=== PATIENT | male | born 1960 | race Caucasian/White ===

== ENCOUNTER 2021-06-27 15:13 | Inpatient (IN) | payer MEDICARE, MEDICAID ==
[~2021-06-27] VITALS: Ht 172.7 cm; Wt 67.5 kg
[2021-06-27] MEDS ORDERED: loperamide 2mg capsule PO PRN (15:25)
[2021-06-27] MEDS ORDERED: mag hydrox/Alum hydrox/simeth 30ml oral suspension PO PRN (15:25)
[2021-06-27] MEDS ORDERED: magnesium hydroxide 30ml (MOM) UD suspension PO PRN (15:25)
[2021-06-27] MEDS ORDERED: acetaminophen 325mg tablet PO PRN ×2 (15:25)
--- NOTE | 2021-06-27 16:45 | NUR ---
Admission note: Pt admitted today from [facility] on a 5150 for gravely disabled. Pt was found dirty, hungry, dehydrated and speaking gibberish. Pt continually speaking to himself gibberish and not able to provide his food, clothing and penitentiary. Pts packet does not state any history except "Pt is a and has been homeless for quite some time with hallucinations."
[2021-06-27 16:56] VITALS: BP 162/101
[2021-06-27] MEDS ORDERED: NO HOME MEDS (16:57)
[2021-06-27 20:16] VITALS: BP 138/85
--- NOTE | 2021-06-27 23:14 | NUR ---
Nursing Progress Note: Legal hold:5150 Client on /involuntary status for GD Report received from nurse with use of DARVIN Henriquez Why are they here: Pt was placed on a 5150 in [facility]. Pt appeared to be disheveled, was hungry, and dehydrated. He is unable to provide a viable plan for food, clothing, or custodial. Assessment What has happened this shift: pt remains in bed for duration of shift, only gets up to eat and use the bathroom. Pt is guarded in response to questions and only answers some questions with minimal answers. Pt states his birthday is [birth year]. Pt states he was in "all the [place]" of the " Pt is unable to state why he is here. Pt ate his meals in his room and requested coffee and reports no other needs. S/I, H/I: pt denies A/VH: pt didnt answer Sleep: see sleep hours ADL's: pt ambulates to bathroom independently Group attendance: remained in bed Were meds taken: only prns Any med S/E: no meds given Mental Status Exam Appearance: disheveled Eye contact: poor Behavior: guarded, attempts were made to encourage conversation but patient kept sheet pulled over his head while talking. Speech: soft spoken, normal rate and rhythm Mood: gaurded, fearful Affect: flat Thought process: disorganized Thought Content: wants coffee Cognition:a/o to person Insight: poor Judgment: poor Interventions PRN's used: None Therapeutic interventions: Established rapport, maintained a safe and supportive environment, ensured contract for safety, provided clear and simple instructions, provided direction and encouragement regarding performance of ADLs, and maintained Q15 min safety checks. Restraints/seclusion/emergency medication: N/A Justification of Continued Inpatient Treatment: Pt requires a safe and supportive environment, medication adjustment and monitoring, and interruption of current crisis.
[2021-06-28] MEDS: nicotine 21mg patch - 24 hr TD SCH (07:35)
[2021-06-28 08:00] VITALS: BP 140/84
[2021-06-28 10:45] LABS: CHOL/HDL RATIO 3.1 (0.00-4.99); CHOLESTEROL 230 MG/DL (0-200); HDL CHOLESTEROL 75 MG/DL (35-60); LDL CHOLESTEROL 136 MG/DL (50-100); TRIGLYCERIDES 78 MG/DL (20-135)
--- NOTE | 2021-06-28 15:11 | NUR ---
Nursing Progress Note: Legal hold: 5150 Client on involuntary status for GD Report received from nurse Eva REYNOLDS with use of SBAR Why are they here: Pt was placed on a 5150 in [facility]. Pt appeared to be disheveled, was hungry, and dehydrated. He is unable to provide a viable plan for food, clothing, or care home. Assessment What has happened this shift: Pt was up before breakfast walking around the unit talking to himself. Pt asked for coffee and a nicotine patch. Pt is hyperverbal and rambles. Pt states that his birthday is [birth year]. Pt states he actually has 2 birthdays on record per the [place]. 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 Pt states that he was in the and has a clean bill of health and mental health. Pt identified with name and medical record number. Pt denied depression, SI/HI/AH/VH. Pt has a new order for Lipitor 20 mg daily. S/I, H/I: Pt denies. A/VH: Pt denies though appears to be responding to internal stimuli. Sleep: Pt slept 9.5 hours last night per noc shift report. ADL's: Independent Group attendance: No Were meds taken: Pt only had a nicotine patch scheduled this morning. Any med S/E: N/A Mental Status Exam Appearance: Older balding, tanned man with dark hair and scratch hidalgo on his nose dressed in green unit scrubs and a gastelum hoodie. Eye contact: Fair Behavior: Cooperative, restless, paces the unit and talks to himself. Speech: Clear, soft, hyperverbal, rambles. Mood: Calm Affect: Mildly guarded. Thought process: Delusional Thought Content: He has 2 birthdays on record, he is in the witness protection program, they will collect him when he leaves here. Cognition: A/O X2, oriented to person and place. Insight: Poor Judgment: Poor Interventions PRN's used: None Therapeutic interventions: 1:1 assessment, establishment of rapport, maintained a safe and supportive environment, provided clear and simple instructions, therapeutic communication, active listening, encouragement to attend groups, provided distraction, direction, positive reinforcement, reality orientation, and maintained Q15 minute safety checks. Restraints/seclusion/emergency medication: N/A Justification of Continued Inpatient Treatment: Pt requires a safe and supportive environment, medication adjustment and monitoring, and interruption of current crisis.
[2021-06-28 19:31] VITALS: BP 145/87
[2021-06-28] MEDS ORDERED: OLANZapine 2.5MG tablet PO SCH (21:00)
--- NOTE | 2021-06-28 21:15 | NUR ---
Nursing Progress Note: Legal hold: 5150 Client on involuntary status for GD Report received from nurse Martinez REYNOLDS with use of SBAR Why are they here: Pt was placed on a 5150 in [facility]. Pt appeared to be disheveled, was hungry, and dehydrated. He is unable to provide a viable plan for food, clothing, or skilled nursing. Assessment What has happened this shift: Pt was in the hallway at change of shift, wants to know when he can leave. Explained he will be here while he is on a hold and suggested he eat well and get comfortable. Pt states he slept well last night, pt states he needs more food because he is feeling hungry after having dinner and snack. Pt states "shonda is the president right now". S/I, H/I: Pt denies. A/VH: Pt denies though appears to be responding to internal stimuli. Sleep: see sleep hours ADL's: Independent Group attendance: No Were meds taken: yes Any med S/E: N/A Mental Status Exam Appearance: Older balding, tanned man with dark hair and scratch hidalgo on his nose dressed in green unit scrubs and a gastelum hoodie. Eye contact: Fair Behavior: Cooperative, restless, paces the unit and talks to himself. Speech: Clear, soft, Mood: Calm Affect: Mildly guarded. Thought process: Delusional Thought Content: wants to know when he can leave and if he can have a "double portion" of food Cognition: A/O X2, oriented to person and place. Insight: Poor Judgment: Poor Interventions PRN's used: None Therapeutic interventions: 1:1 assessment, establishment of rapport, maintained a safe and supportive environment, provided clear and simple instructions, therapeutic communication, active listening, encouragement to attend groups, provided distraction, direction, positive reinforcement, reality orientation, and maintained Q15 minute safety checks. Restraints/seclusion/emergency medication: N/A Justification of Continued Inpatient Treatment: Pt requires a safe and supportive environment, medication adjustment and monitoring, and interruption of current crisis.
[2021-06-29 08:25] VITALS: BP 166/111
[2021-06-29] MEDS: hyDRALAzine 10mg tablet PO SCH ×2 (08:39→16:22)
[2021-06-29] MEDS: atorvastatin 20mg tablet PO SCH (08:39)
[2021-06-29] MEDS: nicotine 21mg patch - 24 hr TD SCH (08:42)
[2021-06-29 11:19] VITALS: BP 148/98
[2021-06-29 11:21] VITALS: BP 148/98
--- NOTE | 2021-06-29 13:31 | NUR ---
Attempted to meet with Jerardo to complete psychosocial assessment. Jerardo is a 61 y/o male who was placed on 5150 for grave disability by [facility] on 06/24/21. He was found by [facility] who were concerned he was not able to care for himself and was dirty, hungry, dehydrated, and speaking gibberish. He was arrested at a rest stop on 06/23/21 in [place] for Disorderly Conduct:Alcohol. He was also arrested on warrants for obstruction, wise theft, and receiving known stolen property. Jerardo is a short, disheveled, 61 y/o male. He was stuttering and rambling about wanting to discharge to the "[facility]". He mentioned being in the and witness protection. He would not converse with travel writer and left the room. AGUILAR Cloud Addendum: 06/29/21 at 1332 by Ju Weaver SS Amended: Links added.
[2021-06-29 15:53] VITALS: BP 149/99
--- NOTE | 2021-06-29 16:41 | NUR ---
Nursing Progress Note: Legal hold: 5150 Client on involuntary status for GD Report received from nurse Eva REYNOLDS with use of SBAR Why are they here: Pt was placed on a 5150 in [facility]. Pt appeared to be disheveled, was hungry, and dehydrated. He is unable to provide a viable plan for food, clothing, or correction. Assessment What has happened this shift: Pt was up before breakfast pacing in the hager. Pt's BP this morning was 166/111 with a pulse of 60. An order was obtained for Hydralazine 20 mg PO Q 8H. Pt's BP at 1600 was 149/99 with a pulse of 67 and he was given his routine Hydralazine. Pt continues to respond to internal stimuli mumbling to himself in his room. He would seem to have some fixed delusions. He continues to report that he was born in 1950. Pt is pleasant and cooperative with care and unit procedures. No unsafe behaviors noted. His Zyprexa was increased to 10 mg HS. S/I, H/I: Pt denies. A/VH: Pt denies though appears to be responding to internal stimuli. Sleep: Pt slept 9 hours last night per noc shift report. ADL's: Independent Group attendance: No Were meds taken: Yes Any med S/E: None noted or reported. Mental Status Exam Appearance: Tanned,weathered man with dark hair bald on top and scratch hidalgo on his nose dressed in green unit scrubs and a gastelum hoodie. Eye contact: Good Behavior: Pleasant, cooperative, restless, paces the unit, talks to himself in his room. Speech: Clear, soft, hyperverbal, rambles. Mood: Calm Affect: Pleasant though mildly guarded. Thought process: Delusional Thought Content: He is in the witness protection program, he was born in 1950. Cognition: A/O X2, oriented to person and place. Insight: Poor Judgment: Poor Interventions PRN's used: None Therapeutic interventions: 1:1 assessment, establishment of rapport, maintained a safe and supportive environment, provided clear and simple instructions, therapeutic communication, active listening, encouragement to attend groups, provided distraction, direction, positive reinforcement, reality orientation, and maintained Q15 minute safety checks. Restraints/seclusion/emergency medication: N/A Justification of Continued Inpatient Treatment: Pt requires a safe and supportive environment, medication adjustment and monitoring, and interruption of current crisis. Addendum: 06/29/21 at 1654 by Katie Stokes RN (Lee) Pt's first dose of Hydralazine brought his BP down, BP was 148/98 at 1121.
[2021-06-29 20:36] VITALS: BP 136/87
[2021-06-29] MEDS: olanzapine 10mg tablet PO SCH (21:00)
--- NOTE | 2021-06-30 03:30 | NUR ---
Nursing Progress Note: Legal hold: 5150 Client on involuntary status for GD Report received from nurse melinda REYNOLDS with use of SBAR Why are they here: Pt was placed on a 5150 in [facility]. Pt appeared to be disheveled, was hungry, and dehydrated. He is unable to provide a viable plan for food, clothing, or mcc. Assessment What has happened this shift: Nurse received patient later on in shift, patient was already laying in bed. Nurse tried to ask patient his name and patient appeared confused and then stated that he didn't know his name due to him being in the witness protection program and hadn't jed given his new name yet. Nurse ask patient if he knew his birthday and again patient appeared confused rubbed his head and started spewing out random dates. Patient was able to correctly identify the month but didn't know the day and stated a yr that was a decade off. Patient repetitively stated that he wasn't crazy, had no history of mental illness and didn't need to be here. Patient just wants to get his new identity and leave. Patient was cooperative with medication pass and took them without issue. S/I, H/I: Pt denies. A/VH: Pt denies though appears to be responding to internal stimuli. Sleep: See sleep assessment ADL's: Independent Group attendance: No Were meds taken: Yes Any med S/E: None noted or reported. Mental Status Exam Appearance: Tanned,weathered man with dark hair bald on top and scratch hidalgo on his nose dressed in green unit scrubs and a gastelum hoodie. Eye contact: Good Behavior: Pleasant, cooperative, restless, paces the unit, talks to himself in his room. Speech: Clear, soft, hyperverbal, rambles. Mood: Calm Affect: Pleasant though mildly guarded. Thought process: Delusional Thought Content: He is in the witness protection program, he was born in 1951. Cognition: A/O X2, oriented to person and place. Insight: Poor Judgment: Poor Interventions PRN's used: None Therapeutic interventions: 1:1 assessment, establishment of rapport, maintained a safe and supportive environment, provided clear and simple instructions, therapeutic communication, active listening, encouragement to attend groups, provided distraction, direction, positive reinforcement, reality orientation, and maintained Q15 minute safety checks. Restraints/seclusion/emergency medication: N/A Justification of Continued Inpatient Treatment: Pt requires a safe and supportive environment, medication adjustment and monitoring, and interruption of current crisis.
[2021-06-30] MEDS: atorvastatin 20mg tablet PO SCH (07:31)
[2021-06-30] MEDS: hyDRALAzine 10mg tablet PO SCH ×3 (07:31→15:15)
[2021-06-30] MEDS: nicotine 21mg patch - 24 hr TD SCH (07:37)
[2021-06-30 07:47] VITALS: BP 118/80
--- NOTE | 2021-06-30 09:47 | NUR ---
Initial: Pt admitted w/ psychosis per EMR. Currently on a Regular diet w/ mostly 100% intake of meals meeting nutritional needs at this time. M 06/29 w/ PRN bowel care available. No nutrition intervention implemented at this time, will continue to monitor Recs: 1. Continue Regular diet as tolerated 2. Bowel care per rx 3. Weekly wts Addendum: 06/30/21 at [address] Amended: Links added.
[2021-06-30 15:12] VITALS: BP 149/110
[2021-06-30] MEDS: LORazepam 1 MG tablet PO PRN (16:35)
--- NOTE | 2021-06-30 17:10 | NUR ---
Nursing Progress Note: Legal hold: 5250 Client on involuntary status for GD Report received from nurse Eva RN with use of SBAR Why are they here: Pt was placed on a 5150 in [facility]. Pt appeared to be disheveled, was hungry, and dehydrated. He is unable to provide a viable plan for food, clothing, or usp. Assessment What has happened this shift: Pt was up before breakfast requesting coffee. Pt reported that he is being released today, being picked up by the [employer], "I'm here for medical not a messed up head but medical, brain damage..." Pt rambled on and became incoherent. Held pt's Hydralazine this morning as his BP was only 118/80. He was given his 1600 Hydralazine dose as BP then was 149/110. Pt was heard responding to internal stimuli in his room making very loud repetitive guttural utterances/sounds that may have been words that this nurse could not make out. When this RN went in to see if he were okay and to ask him what he saying over and over again pt denied saying anything and again began insisting that he did not have mental health problems. Pt stated that he needed to be released as he had things he needed to do, he needs his new packet, assignment. [facility] to [facility] he can get. Pt got somewhat agitated cursing Jerardo Young. Asked pt, "aren't you Jerardo Young?" Pt shook his head in agitation and said something that sounded like Jerardo Echeverria or maybe [place]. Pt stated he's not from here, pt asked himself, "what's the name of the [facility]? I know the name of this town." Pt appeared momentarily confused. Pt state that he needs to get out of [place] and [place]. Pt was placed on a 5250 today. Notified FINA Loo that pt had been having moments of increased agitation as he is not happy he is not being released today and that he has no PRNs ordered. Obtained order for PRN Ativan 1 mg PO TID PRN. Pt was given PRN Ativan at 1635. Pt has a new order for Zyprexa 5 mg daily. S/I, H/I: Pt denies. A/VH: Pt denies though is responds to internal stimuli loudly at times in his room. Sleep: Pt slept 9 hours last night per noc shift report. ADL's: Independent Group attendance: No Were meds taken: Yes Any med S/E: None noted or reported. Mental Status Exam Appearance: Tanned,weathered man with dark hair bald on top and scratch hidalgo on his nose dressed in green unit scrubs and a gastelum sweatshirt. Eye contact: Fair Behavior: Cooperative, makes frequent requests for coffee, paces the unit, talks to himself, yells/responds to internal stimuli in his room. Speech: Somewhat pressured and hyperverbal, rambles. Mood: Anxious, intermittent agitation today. Affect: Animated. Thought process: Grandiose, delusional, perseverative. Thought Content: He is in the witness protection program, his real birthday is not the one we have listed, his real last name is also different, he needs to be discharged, he can find the [facility] and get [facility]. Cognition: A/O X 1. Insight: Poor Judgment: Poor Interventions PRN's used: Ativan 1 mg Therapeutic interventions: 1:1 assessment, establishment of rapport, maintained a safe and supportive environment, provided clear and simple instructions, therapeutic communication, active listening, encouragement to attend groups, provided distraction, direction, limit setting, verbal de-escalation, positive reinforcement, reality orientation, and maintained Q15 minute safety checks. Restraints/seclusion/emergency medication: N/A Justification of Continued Inpatient Treatment: Pt requires a safe and supportive environment, medication adjustment and monitoring, and interruption of current crisis.
[2021-06-30] MEDS: olanzapine 10mg tablet PO SCH (20:16)
[2021-06-30 20:26] VITALS: BP 155/83
--- NOTE | 2021-06-30 23:12 | NUR ---
Nursing Progress Note: Legal hold: 5250 for gravely disabled Report received from Nanci Dillard RN Why are they here: Pt was placed on a 5150 in [facility]. Pt appeared to be disheveled, was hungry, and dehydrated. He is unable to provide a viable plan for food, clothing, or residential. Assessment What has happened this shift: The patient was sleeping on his bed for the entire evening. He was pleasant when approached for the evening assessment. He reports that he has been homeless "for three days" He also reported that he was looking for a place to live. He stated that he was "Leaning toward [place] toward the [employer]" He stated that he has an income explaining, "I'm retired from the [employer]" He denies that he has a mental illness. He denies that he has thoughts to harm himself or others. He denies psychotic symptoms but then added that he has been told that he has the beginning stages of Parkinson's disease and Alzheimers" He was very dirty and malodorous. His personal living space was very unkempt as well. He was medication compliant. Today he was served with a 14 day hold. Psychiatric stabilization and assessment continues.
[2021-07-01 07:12] VITALS: BP 153/96
[2021-07-01] MEDS: atorvastatin 20mg tablet PO SCH (08:09)
[2021-07-01] MEDS: OLANZapine 2.5MG tablet PO SCH (08:09)
[2021-07-01] MEDS: hyDRALAzine 10mg tablet PO SCH ×3 (08:09→16:57)
[2021-07-01] MEDS: nicotine 21mg patch - 24 hr TD SCH (08:11)
--- NOTE | 2021-07-01 09:57 | NUR ---
Contact Info for [facility] [id number]# [phone] Concurrent review: Karri Lerner-# [phone] [facility] Team (crisis team)-24 hr # [phone] [facility]-ph# [phone] *he can call and do an intake over the phone prior to discharge otherwise he can discharge to a tent encampment Hand Therapist will attempt to assist Jerardo with calling the emergency detention when he is close to discharge. AGUILAR Cloud
--- NOTE | 2021-07-01 12:47 | NUR ---
Utilization Review Sent notes to [facility] for concurrent review. Provided info over the phone to Karri Lerner (# [phone]). AGUILAR Cloud
[2021-07-01] MEDS: LORazepam 1 MG tablet PO PRN (13:19)
--- NOTE | 2021-07-01 17:44 | NUR ---
Nursing Progress Note Jerardo Legal hold: 5250 Client on involuntary status for GD Report received from RN with use of SBAR Why are they here: Pt was placed on a 5150 in [facility]. Pt appeared to be disheveled, was hungry, and dehydrated. He is unable to provide a viable plan for food, clothing, or chcf. Assessment What has happened this shift: Received Pt awake in his room in no distress at change of shift. Pt pleasant and cooperative with vitals and wanted coffee. Pt avoids most questions and focuses on talking about being in witness protection program and denying any mental illness or symptoms. Pt ate meals with others, but isolated to his room for most of the day. Pt was calm and did not have any yelling or agitated moments today. Pt wants to leave but does not have a credible plan or place to live. S/I, H/I: Pt denies A/VH: Pt denies Sleep: Pt rested but did not appear to sleep this shift ADL's: Independent Group attendance: No Were meds taken: Yes Any med S/E: None noted or reported Mental Status Exam Appearance: Unkempt in green scrubs Eye contact: Fair Behavior: Cooperative, makes frequent requests for coffee, paces the unit at times, talks to himself Speech: Coherent when asking for needs; disorganized at other times Mood: Euthymic Affect: Calm Thought process: Grandiose, delusional, perseverative Thought Content: Getting needs met Cognition: A/O X 1. Insight: Poor Judgment: Poor Interventions PRN's used: None Therapeutic interventions: 1:1 assessment, establishment of rapport, maintained a safe and supportive environment, provided clear and simple instructions, therapeutic communication, active listening, encouragement to attend groups, provided distraction, direction, limit setting, positive reinforcement, reality orientation, and maintained Q15 minute safety checks. Restraints/seclusion/emergency medication: N/A Justification of Continued Inpatient Treatment: Pt requires a safe and supportive environment, medication adjustment and monitoring, and interruption of current crisis.
[2021-07-01 19:00] VITALS: BP 149/94
[2021-07-01] MEDS: olanzapine 10mg tablet PO SCH (20:42)
[2021-07-02 00:37] VITALS: BP 146/90
[2021-07-02] MEDS: hyDRALAzine 10mg tablet PO SCH ×3 (00:43→16:18)
--- NOTE | 2021-07-02 03:12 | NUR ---
Nursing Progress Note: Legal hold: 5250 Client on involuntary status for GD Report received from nurse Gilma REYNOLDS with use of SBAR Why are they here: Pt was placed on a 5150 in [facility]. Pt appeared to be disheveled, was hungry, and dehydrated. He is unable to provide a viable plan for food, clothing, or alf. Assessment What has happened this shift: Pt isolates to his room the entirety of the shift. He sits on his bed writing on a note pad. Pt is pleasant on assessment and cooperative. Pt makes non linear statements in a soft spoken voice, for example "[place], [place], all the trucks, I need to figure out how to get the trucks." Pt takes his HS med without issue. He denies SI/HI/AH/VH. S/I, H/I: Pt denies. A/VH: Pt denies though appears to be responding to internal stimuli. Sleep: see sleep hours ADL's: Independent Group attendance: No Were meds taken: yes Any med S/E: N/A Mental Status Exam Appearance: Older balding, tanned man with dark hair and scratch hidalgo on his nose dressed in green unit scrubs and a gastelum hoodie. Eye contact: Fair Behavior: Cooperative, restless, paces the unit and talks to himself. Speech: Clear, soft, Mood: Calm Affect: Mildly guarded. Thought process: Delusional Thought Content: wants to know when he can leave and if he can have a "double portion" of food Cognition: A/O X2, oriented to person and place. Insight: Poor Judgment: Poor Interventions PRN's used: None Therapeutic interventions: 1:1 assessment, establishment of rapport, maintained a safe and supportive environment, provided clear and simple instructions, therapeutic communication, active listening, encouragement to attend groups, provided distraction, direction, positive reinforcement, reality orientation, and maintained Q15 minute safety checks. Restraints/seclusion/emergency medication: N/A Justification of Continued Inpatient Treatment: Pt requires a safe and supportive environment, medication adjustment and monitoring, and interruption of current crisis.
[2021-07-02 07:42] VITALS: BP 147/97
[2021-07-02] MEDS: OLANZapine 2.5MG tablet PO SCH (09:11)
[2021-07-02] MEDS: atorvastatin 20mg tablet PO SCH (09:11)
[2021-07-02] MEDS: nicotine 21mg patch - 24 hr TD SCH (09:12)
[2021-07-02] MEDS: LORazepam 1 MG tablet PO PRN (10:31)
[2021-07-02] MEDS: NICOTINE POLACRILEX 2 MG LOZENGE BC PRN (16:25)
--- NOTE | 2021-07-02 17:33 | NUR ---
Nursing Progress Note: Legal hold: 5250 Client on involuntary status for GD Report received from nurse GAIL Patten with use of SBAR Why are they here: Pt was placed on a 5150 in [facility]. Pt appeared to be disheveled, was hungry, and dehydrated. He is unable to provide a viable plan for food, clothing, or long term. Assessment What has happened this shift: Received patient while he was awake and walking in the hallway. Patient approached this nurse, and mumbled some words, which I could not understand. Patient talks about different locations throughout [place], then continues talking about the [employer]. 1:1 Patient Assessment & Interview completed with patient. Patient continues to mumble, and writing on a yellow pad. Patients writing on the yellow pad are not readable to this Nurse. At approximately 1020, the patient came up and requested coffee to drink. Informed the patient that snack time is scheduled for 1100. Patient immediately went to his room and started yelling all kinds of obscenities in anger. Approached the patient in his room and asked why he was mad and yelling at this time. At the same time I entered the room, FINA Yepez entered the room and sat down to speak to the patient. When Gage explained to the patient that on Sunday he might be able to discharge him to a long term or to a campground located in [place], patient immediately stood up from sitting on the bed, then said Im not going back to [facility], and then he left the room. Patient has multiple scratching areas on his face & scalp that appear small with red wound beds. Patient has been seen scratching these areas with a small area of bleeding noted on most scratches. Patient had Apresoline this am, then again given at 1600. BP at 1600 = 171/116 & HR 87. Gave patient his dose of Apresoline. Recheck of blood pressure was 158/102 & HR= 80 S/I, H/I: Pt denies. A/VH: Pt talking to himself and appears to be responding to internal stimuli. Sleep: 10 hours of sleep. ADL's: Independent Group attendance: Encouraged to attend, but only attended for a short period of time. Were meds taken: Yes, without hesitation. Any med S/E: None observed or reported. 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 Eye contact: Fair Behavior: Cooperative, restless, paces the unit and talks to himself. Speech: Clear, soft, Mood: Calm, but can quickly escalate, cuss and hits valdivia in room. Affect: Mildly guarded. Thought process: Disorganized, Tangential Thought Content: Meeting his own needs. Cognition: A/O X2, oriented to person and place. Insight: Poor Judgment: Poor Interventions PRN's used: Ativan x1 Therapeutic interventions: 1:1 assessment, establishment of rapport, maintained a safe and supportive environment, provided clear and simple instructions, therapeutic communication, active listening, encouragement to attend groups, provided distraction, direction, positive reinforcement, reality orientation, and maintained Q15 minute safety checks. Restraints/seclusion/emergency medication: N/A Justification of Continued Inpatient Treatment: Pt requires a safe and supportive environment, medication adjustment and monitoring, and interruption of current crisis.
[2021-07-02 20:08] VITALS: BP 141/99
[2021-07-02] MEDS: olanzapine 10mg tablet PO SCH (20:55)
--- NOTE | 2021-07-02 22:32 | NUR ---
Nursing Progress Note: Legal hold: 5250 Client on involuntary status for GD Report received from nurse Gilma REYNOLDS with use of SBAR Why are they here: Pt was placed on a 5150 in [facility]. Pt appeared to be disheveled, was hungry, and dehydrated. He is unable to provide a viable plan for food, clothing, or senior living. Assessment What has happened this shift: Pt isolates to his room most of the shift. He denies SI/HI/AH/VH but is observed responding to internal stimuli. He sits up in bed writing intensely and begins yelling at times. He is very polite with staff, but seems agitated internally. 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 PT is compliant with HS medication and falls asleep soon after he drinks some tea. S/I, H/I: Pt denies. A/VH: Pt denies though appears to be responding to internal stimuli. Sleep: see sleep hours ADL's: Independent Group attendance: No Were meds taken: yes Any med S/E: N/A Mental Status Exam Appearance: Older balding, tanned man with dark hair and scratch hidalgo on his nose dressed in green unit scrubs and a gastelum hoodie. Eye contact: Fair Behavior: Cooperative, restless, paces the unit and talks to himself. Speech: Clear, soft, Mood: Calm Affect: Mildly guarded. Thought process: Delusional Thought Content: wants to know when he can leave and if he can have a "double portion" of food Cognition: A/O X2, oriented to person and place. Insight: Poor Judgment: Poor Interventions PRN's used: None Therapeutic interventions: 1:1 assessment, establishment of rapport, maintained a safe and supportive environment, provided clear and simple instructions, therapeutic communication, active listening, encouragement to attend groups, provided distraction, direction, positive reinforcement, reality orientation, and maintained Q15 minute safety checks. Restraints/seclusion/emergency medication: N/A Justification of Continued Inpatient Treatment: Pt requires a safe and supportive environment, medication adjustment and monitoring, and interruption of current crisis
[2021-07-03] MEDS: hyDRALAzine 10mg tablet PO SCH ×3 (08:07→16:00)
[2021-07-03] MEDS: atorvastatin 20mg tablet PO SCH (08:07)
[2021-07-03] MEDS: OLANZapine 2.5MG tablet PO SCH (08:08)
[2021-07-03] MEDS: nicotine 21mg patch - 24 hr TD SCH (08:10)
[2021-07-03 08:36] VITALS: BP 150/102
--- NOTE | 2021-07-03 16:00 | NUR ---
MEDICATION HELD: Held Apresoline at 1600 as SBP was 136
--- NOTE | 2021-07-03 17:33 | NUR ---
Nursing Progress Note: Legal hold: 5250 Client on involuntary status for GD Report received from aKilee REYNOLDS with use of SBAR Why are they here: Pt was placed on a 5150 in [facility]. Pt appeared to be disheveled, was hungry, and dehydrated. He is unable to provide a viable plan for food, clothing, or retirement. Assessment What has happened this shift: Received patient while he was sleeping in bed. Patient woke up at approximately 0655, and went to the kitchen for coffee. Patient ambulating up and down the hager with his coffee, then settled in the dining room to drink his coffee. 1:1 Patient Assessment & Interview completed with the patient. Patient appears to be doing better this morning. Able to communicate more clearly, his needs today. Patient took two naps today, morning and afternoon. Patient participated in snack breaks and both meals. Patient appears peaceful, but does not verbalize needs well. Patient has watched some TV today, and has been compliant with all medications. S/I, H/I: Pt denies. A/VH: Pt denies though appears to be responding to internal stimuli. Sleep: 7 hours. ADL's: Independent Group attendance: No Group Meeting Held Today Were meds taken: Yes, without hesitation. Any med S/E: None observed or reported. Mental Status Exam Appearance: Older balding, tanned man with dark hair and scratch hidalgo on his nose dressed in green unit scrubs and a gastelum hoodie. Eye contact: Fair Behavior: Cooperative, restless, paces the unit and talks to himself. Speech: Clear, soft, Mood: Calm Affect: Blunted. Thought process: Disorganized Thought Content: Disorganized Cognition: A/O X2, oriented to person and place. Insight: Poor Judgment: Poor Interventions PRN's used: None Therapeutic interventions: 1:1 assessment, establishment of rapport, maintained a safe and supportive environment, provided clear and simple instructions, therapeutic communication, active listening, encouragement to attend groups, provided distraction, direction, positive reinforcement, reality orientation, and maintained Q15 minute safety checks. Restraints/seclusion/emergency medication: N/A Justification of Continued Inpatient Treatment: Pt requires a safe and supportive environment, medication adjustment and monitoring, and interruption of current crisis
[2021-07-03 19:31] VITALS: BP 152/85
[2021-07-03] MEDS: olanzapine 10mg tablet PO SCH (20:17)
--- NOTE | 2021-07-04 04:52 | NUR ---
Nursing Progress Note: Legal hold: 5250 Client on involuntary status for GD Report received from nurse Martinez RN with use of SBAR Why are they here: Pt was placed on a 5150 in [facility]. Pt appeared to be disheveled, was hungry, and dehydrated. He is unable to provide a viable plan for food, clothing, or mcfp. Assessment What has happened this shift: Patient seen on his bed at shift change. He is pleasant and cooperative. Patient stutters a little when speaking. 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 Patient spent the night in his room. There was no yelling or outbursts of any kind. He was compliant with medications before going to sleep. S/I, H/I: Denies. A/VH: Denies, though appears to be responding to internal stimuli. Sleep: See sleep assessment ADL's: Independent Group attendance: No Were meds taken: yes Any med S/E: None reported or observed. Mental Status Exam Appearance: Older balding, tanned man with dark hair and scratch hidalgo on his nose dressed in green unit scrubs. Eye contact: Fair Behavior: Cooperative, isolated to room all shift. Speech: Clear, soft, Mood: Calm Affect: Mildly guarded. Thought process: Delusional Thought Content: Meeting needs. Cognition: A/O X2, oriented to person and place. Insight: Poor Judgment: Poor Interventions PRN's used: None Therapeutic interventions: 1:1 assessment, establishment of rapport, maintained a safe and supportive environment, provided clear and simple instructions, therapeutic communication, active listening, encouragement to attend groups, provided distraction, direction, positive reinforcement, reality orientation, and maintained Q15 minute safety checks. Restraints/seclusion/emergency medication: N/A Justification of Continued Inpatient Treatment: Pt requires a safe and supportive environment, medication adjustment and monitoring, and interruption of current crisis
[2021-07-04] MEDS: nicotine 21mg patch - 24 hr TD SCH (08:13)
[2021-07-04] MEDS: OLANZapine 2.5MG tablet PO SCH (08:13)
[2021-07-04] MEDS: hyDRALAzine 10mg tablet PO SCH ×3 (08:13→16:08)
[2021-07-04] MEDS: atorvastatin 20mg tablet PO SCH (08:13)
[2021-07-04 08:36] VITALS: BP 150/96
--- NOTE | 2021-07-04 16:11 | NUR ---
5250 upheld for GD
--- NOTE | 2021-07-04 17:33 | NUR ---
Nursing Progress Note: Legal hold: 5250 Client on involuntary status for GD Report received from GAIL Patten with use of SBAR Why are they here: Pt was placed on a 5150 in [facility]. Pt appeared to be disheveled, was hungry, and dehydrated. He is unable to provide a viable plan for food, clothing, or intermediate. Assessment What has happened this shift: Received patient while he was sleeping in his room. Patient was awake at 0645 and requesting a cup of coffee. Informed patient that the coffee would be ready at 0700. Patient ambulated in hallway and in/out of his room until 0700. Patient says Please and Thank You, for coffee and other requests. Patient went to the dining room for breakfast. Patient rested on his bed after breakfast, then went to the dining room for lunch. Patient watched TV this afternoon, and continued to ambulate in the hallway. S/I, H/I: Denies. A/VH: Denies, though appears to be responding to internal stimuli. Sleep: 3.00 ADL's: Independent. Must be prompted. Group attendance: No Group Meeting Held Today. Were meds taken: yes, without hesitation. Any med S/E: None reported or observed. Mental Status Exam Appearance: Older balding, tanned man with dark hair and scratch hidalgo on his nose dressed in green unit scrubs. Eye contact: Fair, looks down to the floor when speaking. Behavior: Cooperative. . Speech: Clear, soft, Mood: Calm Affect: Mildly guarded. Thought process: Delusional Thought Content: Meeting needs. Cognition: A/O X2, oriented to person and place. Insight: Poor Judgment: Poor Interventions PRN's used: None Therapeutic interventions: 1:1 assessment, establishment of rapport, maintained a safe and supportive environment, provided clear and simple instructions, therapeutic communication, active listening, encouragement to attend groups, provided distraction, direction, positive reinforcement, reality orientation, and maintained Q15 minute safety checks. Restraints/seclusion/emergency medication: N/A Justification of Continued Inpatient Treatment: Pt requires a safe and supportive environment, medication adjustment and monitoring, and interruption of current crisis
[2021-07-04 19:06] VITALS: BP 155/105
[2021-07-04] MEDS: OLANZAPINE 5 MG TABLET PO SCH (20:09)
[2021-07-04 21:34] VITALS: BP 130/93
--- NOTE | 2021-07-05 03:56 | NUR ---
Nursing Progress Note: Legal hold: 5250 Client on involuntary status for GD Report received from nurse Juan RN with use of SBAR Why are they here: Pt was placed on a 5150 in [facility]. Pt appeared to be disheveled, was hungry, and dehydrated. He is unable to provide a viable plan for food, clothing, or residential. Assessment What has happened this shift: Patient seen at bedside for 1:1. Asked him how he's doing tonight, "nothing's wrong...I have a good life ahead of me." When asked about his plans, he gives no viable answer. Patient isolates to his room. His speech is filled with mumbles and stutters Patient seen on his bed at shift change. He is pleasant and cooperative. Patient stutters a little when speaking. 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 Patient spent the night in his room. There was no yelling or outbursts of any kind. He was compliant with medications before going to sleep. S/I, H/I: Denies. A/VH: Denies, though appears to be responding to internal stimuli. Sleep: See sleep assessment ADL's: Independent Group attendance: No Were meds taken: yes Any med S/E: None reported or observed. Mental Status Exam Appearance: Older balding, tanned man with dark hair and scratch hidalgo on his nose dressed in green unit scrubs. Eye contact: Fair Behavior: Cooperative, isolated to room all shift. Speech: Clear, soft, Mood: Calm Affect: Mildly guarded. Thought process: Delusional Thought Content: Meeting needs. Cognition: A/O X2, oriented to person and place. Insight: Poor Judgment: Poor Interventions PRN's used: None Therapeutic interventions: 1:1 assessment, establishment of rapport, maintained a safe and supportive environment, provided clear and simple instructions, therapeutic communication, active listening, encouragement to attend groups, provided distraction, direction, positive reinforcement, reality orientation, and maintained Q15 minute safety checks. Restraints/seclusion/emergency medication: N/A Justification of Continued Inpatient Treatment: Pt requires a safe and supportive environment, medication adjustment and monitoring, and interruption of current crisis Addendum: 07/05/21 at 0433 by Tony Pacheco RN Disregard this note.
--- NOTE | 2021-07-05 04:27 | NUR ---
Nursing Progress Note: Legal hold: 5250 Client on involuntary status for GD Report received from nurse GAIL Henriquez with use of SBAR Why are they here: Pt was placed on a 5150 in [facility]. Pt appeared to be disheveled, was hungry, and dehydrated. He is unable to provide a viable plan for food, clothing, or chcf. Assessment What has happened this shift: Patient seen at bedside for 1:1. Asked him how he's doing tonight, "nothing's wrong...I have a good life ahead of me." When asked about his plans, he gives no viable answer. Patient isolates to his room. His speech is filled with mumbles and stutters, but he gets information across. He is quiet in his room without any outburst or yelling. Patient did not get up for snack, and he accepted HS medications in his room. S/I, H/I: Denies. A/VH: Denies, though appears to be responding to internal stimuli. Sleep: See sleep assessment ADL's: Independent Group attendance: No Were meds taken: yes Any med S/E: None reported or observed. Mental Status Exam Appearance: Older balding, tanned man with dark hair and scratch hidalgo on his nose dressed in green unit scrubs. Eye contact: Fair Behavior: Cooperative, isolated to room all shift. Speech: Clear, soft, Mood: Calm Affect: Mildly guarded. Thought process: Delusional Thought Content: Meeting needs. Cognition: A/O X2, oriented to person and place. Insight: Poor Judgment: Poor Interventions PRN's used: None Therapeutic interventions: 1:1 assessment, establishment of rapport, maintained a safe and supportive environment, provided clear and simple instructions, therapeutic communication, active listening, encouragement to attend groups, provided distraction, direction, positive reinforcement, reality orientation, and maintained Q15 minute safety checks. Restraints/seclusion/emergency medication: N/A Justification of Continued Inpatient Treatment: Pt requires a safe and supportive environment, medication adjustment and monitoring, and interruption of current crisis
[2021-07-05 07:53] VITALS: BP 161/108
[2021-07-05] MEDS: hyDRALAzine 10mg tablet PO SCH ×4 (08:13→20:20)
[2021-07-05] MEDS: OLANZapine 2.5MG tablet PO SCH (08:13)
[2021-07-05] MEDS: atorvastatin 20mg tablet PO SCH (08:13)
[2021-07-05] MEDS: nicotine 21mg patch - 24 hr TD SCH (08:14)
--- NOTE | 2021-07-05 17:44 | NUR ---
Nursing Progress Note: Legal hold: 5250 Client on involuntary status for GD Report received from GAIL Velasquez with use of SBAR Why are they here: Pt was placed on a 5150 in [facility]. Pt appeared to be disheveled, was hungry, and dehydrated. He is unable to provide a viable plan for food, clothing, or long-term. Assessment Received patient while he was ambulating back and forth in the hallway. Patient requested coffee and informed it would soon be coffee time at 0700. Patient mumbling when walking through the halls. Dr. Martin arrived to assess the patient, and when she asked the patient his last name, patient stated I cant tell you Im in the [employer]. Patient reports no issues to Dr. Martin at this time. Patient did not participate in the Group Meeting but slept taking a morning nap. Recheck of patients blood pressure at 1600 was 151/82 & heart rate was 82. S/I, H/I: Denies. A/VH: Denies, though appears to be responding to internal stimuli. Sleep: See sleep assessment ADL's: Independent Group attendance: No Were meds taken: yes Any med S/E: None reported or observed. Mental Status Exam Appearance: Older balding, tanned man with dark hair and scratch hidalgo on his nose dressed in green unit scrubs. Eye contact: Fair Behavior: Cooperative, isolated to room all shift. Speech: Clear, soft, Mood: Calm Affect: Mildly guarded. Thought process: Delusional Thought Content: Meeting needs. Cognition: A/O X2, oriented to person and place. Insight: Poor Judgment: Poor Interventions PRN's used: None Therapeutic interventions: 1:1 assessment, establishment of rapport, maintained a safe and supportive environment, provided clear and simple instructions, therapeutic communication, active listening, encouragement to attend groups, provided distraction, direction, positive reinforcement, reality orientation, and maintained Q15 minute safety checks. Restraints/seclusion/emergency medication: N/A Justification of Continued Inpatient Treatment: Pt requires a safe and supportive environment, medication adjustment and monitoring, and interruption of current crisis
[2021-07-05 19:11] VITALS: BP 133/100
[2021-07-05] MEDS: OLANZAPINE 5 MG TABLET PO SCH (20:20)
--- NOTE | 2021-07-06 03:03 | NUR ---
Nursing Progress Note: Legal hold: 5250 Client on involuntary status for GD Report received from nurse GAIL Henriquez with use of SBAR Why are they here: Pt was placed on a 5150 in [facility]. Pt appeared to be disheveled, was hungry, and dehydrated. He is unable to provide a viable plan for food, clothing, or senior living. Assessment What has happened this shift: Patient was seen in his room lying on his bed. He has a pad of paper with illegible writing on it. Patient mumbles that it has something to do with [employer], but he can't tell me about it. Then he said something about being retired from the . He got irritated when I asked him to repeat something, so I could understand. Patient picked up his pad and started writing. I had been dismissed. S/I, H/I: Denies. A/VH: Denies, though appears to be responding to internal stimuli. Sleep: See sleep assessment ADL's: Independent Group attendance: No Were meds taken: yes Any med S/E: None reported or observed. Mental Status Exam Appearance: Older balding, tanned man with dark hair and scratch hidalgo on his nose dressed in green unit scrubs. Eye contact: Fair Behavior: Cooperative, isolated to room all shift. Speech: Soft, mumbles Mood: Calm Affect: Mildly guarded. Thought process: Delusional Thought Content: Meeting needs. Cognition: A/O X2, oriented to person and place. Insight: Poor Judgment: Poor Interventions PRN's used: None Therapeutic interventions: 1:1 assessment, establishment of rapport, maintained a safe and supportive environment, provided clear and simple instructions, therapeutic communication, active listening, encouragement to attend groups, provided distraction, direction, positive reinforcement, reality orientation, and maintained Q15 minute safety checks. Restraints/seclusion/emergency medication: N/A Justification of Continued Inpatient Treatment: Pt requires a safe and supportive environment, medication adjustment and monitoring, and interruption of current crisis
[2021-07-06] MEDS: OLANZapine 2.5MG tablet PO SCH (07:37)
[2021-07-06] MEDS: atorvastatin 20mg tablet PO SCH (07:37)
[2021-07-06] MEDS: hyDRALAzine 10mg tablet PO SCH ×3 (07:38→19:28)
--- NOTE | 2021-07-06 07:41 | NUR ---
Reassessment: Pt currently on a Regular diet w/ mostly 100% intake of meals meeting nutritional needs at this time. [place] 07/04 w/ PRN bowel care available. No nutrition intervention implemented at this time, will continue to monitor. Recs: 1. Continue Regular diet as tolerated 2. Bowel care per rx 3. Weekly wts Addendum: 07/06/21 at [address] Amended: Links added.
[2021-07-06] MEDS: nicotine 21mg patch - 24 hr TD SCH (07:45)
[2021-07-06 08:20] VITALS: BP 112/75
[2021-07-06 12:07] VITALS: BP 151/95
[2021-07-06] MEDS: LORazepam 1 MG tablet PO PRN (12:19)
--- NOTE | 2021-07-06 18:02 | NUR ---
Nursing Progress Note: Legal hold: 5250 Client on involuntary status for GD Report received from nurse Eva REYNOLDS with use of SBAR Why are they here: Pt was placed on a 5150 in [facility]. Pt appeared to be disheveled, was hungry, and dehydrated. He is unable to provide a viable plan for food, clothing, or halfway. Assessment What has happened this shift: Pt was up before breakfast pacing the unit and mumbling to himself. His 0800 Hydralazine was held for a decreased BP of 112/75 with a pulse of 73. Pt was cooperative with his morning medications. Pt c/o 5/10 headache pain and was given PRN Tylenol 650 mg at 0738 with good effect. Pt remains delusional. Pt denies and mental health issues, insists he was here for medical reasons which he states are better and he should be ready for discharge soon. Pt states, "I'm in good with the [facility]." Pt states that he needs to get his "[employer] pay," that he has lots of it built up. Pt appears to be responding to internal stimuli. Pt makes loud grunting type sounds in his room. Pt talks and grumbles to himself incessantly and becomes irritable at times. Pt was given PRN Ativan 1 mg along with his routine 1300 hydralazine at 1219 with good effect. BP before lunch was 151/95, P 83. S/I, H/I: Pt denies. A/VH: Pt denies though responds to internal stimuli with strange grunting noises and talking to himself. Sleep: Pt slept 7 hours last night per noc shift report, pt reported having difficulty sleeping last night. ADL's: Independent Group attendance: No Were meds taken: Yes Any med S/E: None noted or reported. Mental Status Exam Appearance: Tanned,weathered man with dark longish hair bald on top dressed in green unit scrubs and a gastelum sweatshirt. Eye contact: Fair to good. Behavior: Paces, talks to himself, responds to internal stimuli for much of the day. Speech: Pressured, hyperverbal, mumbles at times. Mood: Fluctuates between pleasant, and anxious and irritable. Affect: Animated. Thought process: Grandiose, delusional, perseverative. Thought Content: He's in good with the [facility], he has no mental health issues. Cognition: A/O X 2 Insight: Poor Judgment: Poor Interventions PRN's used: Ativan 1 mg Therapeutic interventions: 1:1 assessment, maintained a safe and supportive environment, provided clear and simple instructions, therapeutic communication, active listening, encouragement to attend groups, provided distraction, redirection, limit setting, attempted reality orientation, provided positive reinforcement, and maintained Q15 minute safety checks. Restraints/seclusion/emergency medication: N/A Justification of Continued Inpatient Treatment: Pt requires a safe and supportive environment, medication adjustment and monitoring, and interruption of current crisis.
[2021-07-06 19:52] VITALS: BP 133/89
[2021-07-06] MEDS: OLANZAPINE 5 MG TABLET PO SCH (20:01)
--- NOTE | 2021-07-06 22:34 | NUR ---
Nursing Progress Note: Legal hold: 5250 for grave disability Report received from Nanci Henriquez performance makeup artist Why are they here: Pt was placed on a 5150 in [facility]. Pt appeared to be disheveled, was hungry, and dehydrated. He is unable to provide a viable plan for food, clothing, or intermediate. Assessment What has happened this shift: The patient isolated to his bed and appeared to be sleeping when approached for the evening assessment. He did come out briefly to get coffee at snack time then went right back to bed. He appeared disheveled and his shirt and dried food and stains. He stated that he feels "psychologically and physically sound" and he then added, "I'm scheduled to be released soon" He stated that he is only here to have a brief medical evaluation and he denied having a mental illness. He stated that on discharge he plans to go to the [place] and that he was in every branch of the . At times he mumbled his words and it was difficult to understand what he was trying to say. He was pleasant and polite during the assessment. He remains delusional and gravely disabled. His insight and judgement are very poor. He did not voice any suicidal thoughts or thoughts to harm others. He has not had any agitation or aggressive behaviors. He did take his evening Zyprexa and denied medication side effects but then stated, "The Olanzapine is keeping me floating" He did appear sleepy from the medications.
[2021-07-07 07:27] VITALS: BP 141/91
[2021-07-07] MEDS: OLANZapine 2.5MG tablet PO SCH (08:03)
[2021-07-07] MEDS: atorvastatin 20mg tablet PO SCH (08:03)
[2021-07-07] MEDS: hyDRALAzine 10mg tablet PO SCH ×3 (08:04→20:35)
[2021-07-07] MEDS: nicotine 21mg patch - 24 hr TD SCH (08:09)
[2021-07-07 13:12] VITALS: BP 152/106
[2021-07-07] MEDS: LORazepam 1 MG tablet PO PRN ×2 (13:19→20:35)
--- NOTE | 2021-07-07 15:31 | NUR ---
Nursing Progress Note: Legal hold: 5250 Client on involuntary status for GD Report received from nurse Eva REYNOLDS with use of SBAR Why are they here: Pt was placed on a 5150 in [facility]. Pt appeared to be disheveled, was hungry, and dehydrated. He is unable to provide a viable plan for food, clothing, or longterm. Assessment What has happened this shift: Pt was up before breakfast asking for coffee. Pt was cooperative with his medications. Pt is polite and pleasant though continues to have fixed delusions and to respond to internal stimuli. Pt mumbles/talks to himself frequently. Occasionally, pt will make loud guttural sounds like, "He-[id number]!" Almost as though he is forcefully clearing his throat but with vocalizations. When he does this he appears anxious and mildly agitated. Pt was given PRN Ativan 1 mg at 1319 with good effect. Discussed the possibility of changing pt's BP med hydralazine which he takes three times daily to something to be given once a day in the morning if possible with [employer] in preparation for discharge. S/I, H/I: Pt denies. A/VH: Pt denies though responds to internal stimuli with strange grunting noises and talking to himself. Sleep: Pt slept 8.5 hours last night per noc shift report. ADL's: Independent Group attendance: No Were meds taken: Yes Any med S/E: None noted or reported. Mental Status Exam Appearance: Tanned,weathered man with dark longish hair bald on top dressed in personal clothing. Eye contact: Fair to good. Behavior: Pleasant, cooperative, paces, talks to himself, responds to internal stimuli. Speech: Pressured, hyperverbal, mumbles at times. Mood: Good. Affect: Animated. Thought process: Delusional Thought Content: He has no mental health issues just medical ones. Cognition: A/O X 2 Insight: Poor Judgment: Poor Interventions PRN's used: Ativan 1 mg Therapeutic interventions: 1:1 assessment, maintained a safe and supportive environment, provided clear and simple instructions, therapeutic communication, active listening, encouragement to attend groups, provided distraction, redirection, limit setting, attempted reality orientation, provided positive reinforcement, and maintained Q15 minute safety checks. Restraints/seclusion/emergency medication: N/A Justification of Continued Inpatient Treatment: Pt requires a safe and supportive environment, medication adjustment and monitoring, and interruption of current crisis.
[2021-07-07 19:43] VITALS: BP 132/83
[2021-07-07] MEDS: OLANZAPINE 5 MG TABLET PO SCH (20:35)
--- NOTE | 2021-07-08 01:40 | NUR ---
Nursing Progress Note: Legal hold: 5250 Client on involuntary status for GD Report received from nurse Gilma RN with use of SBAR Why are they here: Pt was placed on a 5150 in [facility]. Pt appeared to be disheveled, was hungry, and dehydrated. He is unable to provide a viable plan for food, clothing, or jail. Assessment What has happened this shift: Patient sitting up in bed and responding to IS at the beginning of shift. Pleasant and cooperative with care; compliant with medication. PRN Ativan for apparent increased anxiety provided. Patient denies SI, HI, A/VH. He is constantly writing in his papers and talking out loud while awake. Patient provide HS snack and returned to bed; observed sleeping and does not appear to be having difficulty. S/I, H/I: Denies A/VH: Responding to IS Sleep: Refer to sleep assessment ADL's: Independent Group attendance: NA Were meds taken: Yes Any med S/E: None observed or reported Mental Status Exam Appearance: Neat, appropriately dressed in personal attire Eye contact: Good Behavior: Pleasant and cooperative, isolative to room Speech: Pressured, hyperverbal, mumbles Mood: "Good" Affect: Animated Thought process: Delusional, disorganized Thought Content: Meeting needs Cognition: A/O X 2 Insight: Poor Judgment: Poor Interventions PRN's used: Ativan Therapeutic interventions: 1:1 assessment, maintained a safe and supportive environment, provided clear and simple instructions, therapeutic communication, active listening, encouragement to attend groups, provided distraction, redirection, limit setting, attempted reality orientation, provided positive reinforcement, and maintained Q15 minute safety checks. Restraints/seclusion/emergency medication: NA Justification of Continued Inpatient Treatment: Pt requires a safe and supportive environment, medication adjustment and monitoring, and interruption of current crisis.
[2021-07-08 07:16] VITALS: BP 131/92
[2021-07-08] MEDS: OLANZapine 2.5MG tablet PO SCH (07:26)
[2021-07-08] MEDS: hyDRALAzine 10mg tablet PO SCH ×3 (07:26→20:37)
[2021-07-08] MEDS: atorvastatin 20mg tablet PO SCH (07:26)
[2021-07-08] MEDS: nicotine 21mg patch - 24 hr TD SCH (07:32)
[2021-07-08 12:10] VITALS: BP 140/96
--- NOTE | 2021-07-08 15:11 | NUR ---
Nursing Progress Note: Legal hold: 5250 Client on involuntary status for GD Report received from nurse Mervat REYNOLDS with use of SBAR Why are they here: Pt was placed on a 5150 in [facility]. Pt appeared to be disheveled, was hungry, and dehydrated. He is unable to provide a viable plan for food, clothing, or custodial. Assessment What has happened this shift: Pt slept in later than usual this morning. He was still lying in bed sleeping at 0730. Pt stated, "I guess [facility] is doing some more counter measuring for sleep." Pt was cooperative with medications. Morning Hydralazine dose was held as BP was 131/92. Pt appeared to be responding less to internal stimuli today. Did not hear pt making loud repetitive guttural noises and pt was talking to himself less today. Pt continues to be delusional as to his ties to the [employer]. Pt attended group today. S/I, H/I: Pt denies. A/VH: Pt denies though does continue to talk to himself at times. Sleep: Pt slept 9.25 hours last night per noc shift report. ADL's: Independent Group attendance: Yes Were meds taken: Yes Any med S/E: None noted or reported. Mental Status Exam Appearance: Tanned,weathered man with dark longish hair bald on top dressed in jeans and a gastelum sweatshirt. Eye contact: Fair to good. Behavior: Pleasant, cooperative, paces, enjoys coffee. Speech: Somewhat rapid, mumbles at times. Mood: Good. Affect: Animated. Thought process: Delusional Thought Content: [facility] is doing some counter measures to make him sleep. Cognition: A/O X 2 Insight: Poor Judgment: Poor Interventions PRN's used: None Therapeutic interventions: 1:1 assessment, maintained a safe and supportive environment, provided clear and simple instructions, therapeutic communication, active listening, encouragement to attend groups, provided distraction, redirection, attempted reality orientation, provided positive reinforcement, and maintained Q15 minute safety checks. Restraints/seclusion/emergency medication: N/A Justification of Continued Inpatient Treatment: Pt requires a safe and supportive environment, medication adjustment and monitoring, and interruption of current crisis.
[2021-07-08 19:00] VITALS: BP 152/105
[2021-07-08] MEDS: LORazepam 1 MG tablet PO PRN (20:37)
[2021-07-08] MEDS: olanzapine 10mg tablet PO SCH (20:37)
--- NOTE | 2021-07-09 02:41 | NUR ---
Nursing Progress Note: Legal hold: 5250 Client on involuntary status for GD Report received from nurse Gilma RN with use of SBAR Why are they here: Pt was placed on a 5150 in [facility]. Pt appeared to be disheveled, was hungry, and dehydrated. He is unable to provide a viable plan for food, clothing, or care home. Assessment What has happened this shift: Patient laying in bed awake at the beginning of shift. Pleasant and cooperative with care; compliant with medication. PRN Ativan provided and Nicotine patch removed/discarded by technical proposal writer. Patient continues to respond to IS and denies SI, HI, VH. Patient remains self isolated the majority of the shift. Participated in HS snack prior to bed; observed sleeping and does not appear to be having difficulty. S/I, H/I: Denies A/VH: Responding to IS Sleep: Refer to sleep assessment ADL's: Independent Group attendance: NA Were meds taken: Yes Any med S/E: None observed or reported Mental Status Exam Appearance: Neat, appropriately dressed in personal attire Eye contact: Good Behavior: Pleasant and cooperative, isolative to room Speech: Pressured, hyperverbal, mumbles Mood: "Good" Affect: Animated Thought process: Delusional, disorganized Thought Content: Meeting needs Cognition: A/O X 2 Insight: Poor Judgment: Poor Interventions PRN's used: Ativan Therapeutic interventions: 1:1 assessment, maintained a safe and supportive environment, provided clear and simple instructions, therapeutic communication, active listening, encouragement to attend groups, provided distraction, redirection, limit setting, attempted reality orientation, provided positive reinforcement, and maintained Q15 minute safety checks. Restraints/seclusion/emergency medication: NA Justification of Continued Inpatient Treatment: Pt requires a safe and supportive environment, medication adjustment and monitoring, and interruption of current crisis.
[2021-07-09 08:00] VITALS: BP 147/96
[2021-07-09] MEDS: nicotine 21mg patch - 24 hr TD SCH (08:02)
[2021-07-09] MEDS: hyDRALAzine 10mg tablet PO SCH ×3 (08:02→20:31)
[2021-07-09] MEDS: atorvastatin 20mg tablet PO SCH (08:03)
[2021-07-09] MEDS: OLANZapine 2.5MG tablet PO SCH (08:03)
--- NOTE | 2021-07-09 16:08 | NUR ---
Nursing Progress Note Legal hold: 5250 Client on involuntary status for GD Report received from RN with use of SBAR Why are they here: Pt was placed on a 5150 in [facility]. Pt appeared to be disheveled, was hungry, and dehydrated. He is unable to provide a viable plan for food, clothing, or senior living. Assessment What has happened this shift: Received Pt in bed sleeping w/o distress at the beginning of the shift. Pt pleasant and cooperative with vitals and wanted coffee. Pt took AM meds w/o issue and AM assessment Qs were answered in a disorganized manner. 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 Pt was concerned about Zyprexa and potential SEs. Discussion about SEs became tangential and disorganized. Pt walked halls and overall cooperative and pleasant. S/I, H/I: Pt denies A/VH: Pt denies Sleep: None this shift ADL's: Independent Group attendance: No Were meds taken: Yes Any med S/E: None noted or reported Mental Status Exam Appearance: Casual in own clothes Eye contact: Fair Behavior: Cooperative, guarded, requests coffee a lot Speech: Coherent when asking for needs; disorganized at other times Mood: Euthymic Affect: Calm Thought process: Grandiose, delusional Thought Content: Getting needs met Cognition: A/O X 1. Insight: Poor Judgment: Poor Interventions PRN's used: None Therapeutic interventions: 1:1 assessment, establishment of rapport, maintained a safe and supportive environment, provided clear and simple instructions, therapeutic communication, active listening, encouragement to attend groups, provided distraction, direction, limit setting, positive reinforcement, reality orientation, and maintained Q15 minute safety checks. Restraints/seclusion/emergency medication: N/A Justification of Continued Inpatient Treatment: Pt requires a safe and supportive environment, medication adjustment and monitoring, and interruption of current crisis.
[2021-07-09 19:00] VITALS: BP 142/94
[2021-07-09] MEDS: olanzapine 10mg tablet PO SCH (20:32)
--- NOTE | 2021-07-09 23:21 | NUR ---
Nursing Progress Note Legal hold: 5250 Client on involuntary status for GD Report received from GAIL Dillard with use of SBAR Why are they here: Pt was placed on a 5150 in [facility]. Pt appeared to be disheveled, was hungry, and dehydrated. He is unable to provide a viable plan for food, clothing, or [facility]. Assessment What has happened this shift: Pt walking around halls at shift change. Pt very polite and happy in response to a greeting. Pt is quiet and mellow. Pt sat in community room mostly by himself looking at car magazines. Talking about them in a disorganized manner. Pt ate snack at snack time and took evening meds w/o complications.Pt BP 142/112 pt took scheduled hydralazine. Pt went to sleep after evening med pass w/o any complications. S/I, H/I: Pt denies A/VH: Pt denies Sleep: See sleep hours ADL's: Independent Group attendance: No group in the evenings Were meds taken: Yes Any med S/E: None noted or reported Mental Status Exam Appearance: Casual in own clothes Eye contact: Fair Behavior: Cooperative, guarded, requests coffee a lot Speech: Coherent when asking for needs; disorganized at other times Mood: Euthymic Affect: Calm Thought process: Grandiose, delusional Thought Content: Getting needs met Cognition: A/O X 1. Insight: Poor Judgment: Poor Interventions PRN's used: None Therapeutic interventions: 1:1 assessment, establishment of rapport, maintained a safe and supportive environment, provided clear and simple instructions, therapeutic communication, active listening, encouragement to attend groups, provided distraction, direction, limit setting, positive reinforcement, reality orientation, and maintained Q15 minute safety checks. Restraints/seclusion/emergency medication: N/A Justification of Continued Inpatient Treatment: Pt requires a safe and supportive environment, medication adjustment and monitoring, and interruption of current crisis.
[2021-07-10] MEDS: OLANZapine 2.5MG tablet PO SCH (06:59)
[2021-07-10] MEDS: nicotine 21mg patch - 24 hr TD SCH (06:59)
[2021-07-10] MEDS: hyDRALAzine 10mg tablet PO SCH ×3 (07:03→20:30)
[2021-07-10] MEDS: atorvastatin 20mg tablet PO SCH (07:03)
[2021-07-10 08:18] VITALS: BP 156/110
--- NOTE | 2021-07-10 17:57 | NUR ---
Nursing Progress Note Legal hold: 5250 Client on involuntary status for GD Report received from GAIL Dugan with use of SBAR Why are they here: Pt was placed on a 5150 in [facility]. Pt appeared to be disheveled, was hungry, and dehydrated. He is unable to provide a viable plan for food, clothing, or care home. Assessment What has happened this shift: Received patient while he was sitting in chair next to the kitchen door, waiting for coffee. Patient was asking for coffee from multiple staff members, and was redirected and informed they would be serving coffee at 0700. Vital signs done at 0700, and BP was 156/110 left arm (1st attempt), 174/120 right arm (2nd attempt), and 163/106 left arm (3rd attempt) Heart Rate was 90. Apresoline was given right after blood pressure was taken. Recheck of BP at 0845, BP was 151/104. Patient ambulated frequently in the hallway or would stop and sit on his bed and write on his yellow tablet notes that cannot be read. S/I, H/I: Pt denies A/VH: Pt denies Sleep: 6.50 ADL's: Independent Group attendance: No Group Meetings on the Weekend Were meds taken: Yes, without hesitation. Any med S/E: None noted or reported Mental Status Exam Appearance: Casual in own clothes Eye contact: Fair, looks down at floor when speaking. Behavior: Cooperative, guarded, requests coffee a lot Speech: Coherent when asking for needs; disorganized at other times Mood: Euthymic Affect: Calm Thought process: Delusional Thought Content: Getting needs met Cognition: A/O X 1. Insight: Poor Judgment: Poor Interventions PRN's used: None Therapeutic interventions: 1:1 assessment, establishment of rapport, maintained a safe and supportive environment, provided clear and simple instructions, therapeutic communication, active listening, encouragement to attend groups, provided distraction, direction, limit setting, positive reinforcement, reality orientation, and maintained Q15 minute safety checks. Restraints/seclusion/emergency medication: N/A Justification of Continued Inpatient Treatment: Pt requires a safe and supportive environment, medication adjustment and monitoring, and interruption of current crisis.
[2021-07-10] MEDS: lactose-reduced food (Ensure High Protein) 237ml bottle PO SCH (18:11)
[2021-07-10 20:06] VITALS: BP 152/99
[2021-07-10] MEDS: olanzapine 10mg tablet PO SCH (20:31)
--- NOTE | 2021-07-11 05:14 | NUR ---
Nursing Progress Note: Legal hold: 5250 Client on involuntary status for GD Report received from GAIL Henriquez with use of SBAR Why are they here: Pt was placed on a 5150 in [facility]. Pt appeared to be disheveled, was hungry, and dehydrated. He is unable to provide a viable plan for food, clothing, or senior care. Assessment What has happened this shift: Patient pacing the unit at the beginning of shift. Pleasant and cooperative with care; compliant with medication. Nicotine patch removed. Patient denies SI, HI, A/VH but continues to respond to IS. Patient observed watching TV and participated in HS snack prior to bed; observed sleeping and does not appear to be having difficulty. S/I, H/I: Denies A/VH: Responding to IS Sleep: Refer to sleep assessment ADL's: Independent Group attendance: NA Were meds taken: Yes Any med S/E: None observed or reported Mental Status Exam Appearance: Neat, appropriately dressed in personal attire Eye contact: Good Behavior: Pleasant and cooperative, active on the unit Speech: Pressured, hyperverbal, mumbles Mood: "Good" Affect: Animated Thought process: Delusional, disorganized Thought Content: Meeting needs Cognition: A/O X 2 Insight: Poor Judgment: Poor Interventions PRN's used: None Therapeutic interventions: 1:1 assessment, maintained a safe and supportive environment, provided clear and simple instructions, therapeutic communication, active listening, encouragement to attend groups, provided distraction, redirection, limit setting, attempted reality orientation, provided positive reinforcement, and maintained Q15 minute safety checks. Restraints/seclusion/emergency medication: NA Justification of Continued Inpatient Treatment: Pt requires a safe and supportive environment, medication adjustment and monitoring, and interruption of current crisis.
[2021-07-11 07:49] VITALS: BP 139/94
[2021-07-11] MEDS: lactose-reduced food (Ensure High Protein) 237ml bottle PO SCH ×3 (08:00→18:02)
[2021-07-11] MEDS: nicotine 21mg patch - 24 hr TD SCH (08:59)
[2021-07-11] MEDS: hyDRALAzine 10mg tablet PO SCH ×3 (08:59→20:29)
[2021-07-11] MEDS: OLANZapine 2.5MG tablet PO SCH (09:00)
[2021-07-11] MEDS: multivitamins, therapeutics tablet PO SCH (09:00)
[2021-07-11] MEDS: atorvastatin 20mg tablet PO SCH (09:01)
[2021-07-11] MEDS: LORazepam 1 MG tablet PO PRN (10:06)
--- NOTE | 2021-07-11 13:47 | NUR ---
Met with Jerardo to discuss discharge plan. He reported he [place] [facility] [place]. Informed him that is not an option, however, we can call a [facility] in [place] to see if he can stay there. Assisted him with calling the [facility] and had to leave a message. Occupational Therapy Department Chair will attempt to call again with Jerardo. AGUILAR Cloud
--- NOTE | 2021-07-11 17:50 | NUR ---
Nursing Progress Note: Legal hold: 5250 Client on involuntary status for GD Report received from GAIL Salinas with use of SBAR Why are they here: Pt was placed on a 5150 in [facility]. Pt appeared to be disheveled, was hungry, and dehydrated. He is unable to provide a viable plan for food, clothing, or long term. Assessment What has happened this shift: Received patient while he was ambulating quickly back and forth in the hallway. Stopped patient in the hallway to have 1:1 patient interview. Patients blood pressure was 139/94 HR 87. Patient took am medications and went to the dining room to eat breakfast. Patient mumbling throughout the day, words that cannot be heard and understood. Patient appears delusional during each conversation. Patient given Ativan x1 with no effect on his ambulating through the halls at a high pace as well as his anxiety shown when he is interviewed. Patient did go take a morning nap in his room. Patient ate in the dining room for both meals, but remained at the back of the room and ate alone. S/I, H/I: Denies A/VH: Responding to Internal Stimuli throughout the day. Sleep: 6.50 hours ADL's: Independent Group attendance: Patient did not attend morning or afternoon Group Meeting. Were meds taken: Yes, without hesitation. Any med S/E: None observed or reported Mental Status Exam Appearance: Small Stature Balding Male dressed in a dirty [place] sweatshirt and karen bottoms. Eye contact: Good Behavior: Pleasant and cooperative. Speech: Pressured, hyper-verbal, mumbles Mood: "Good" Affect: Energetic Thought process: Delusional, disorganized Thought Content: Meeting needs Cognition: A/O X 2 Insight: Poor Judgment: Poor Interventions PRN's used: None Therapeutic interventions: 1:1 assessment, maintained a safe and supportive environment, provided clear and simple instructions, therapeutic communication, active listening, encouragement to attend groups, provided distraction, redirection, limit setting, attempted reality orientation, provided positive reinforcement, and maintained Q15 minute safety checks. Restraints/seclusion/emergency medication: NA Justification of Continued Inpatient Treatment: Pt requires a safe and supportive environment, medication adjustment and monitoring, and interruption of current crisis.
[2021-07-11 20:00] VITALS: BP 107/72
[2021-07-11] MEDS: olanzapine 10mg tablet PO SCH (20:30)
--- NOTE | 2021-07-12 03:27 | NUR ---
Nursing Progress Note: Legal hold: 5250 Client on involuntary status for GD Report received from GAIL Henriquez with use of SBAR Why are they here: Pt was placed on a 5150 in [facility]. Pt appeared to be disheveled, was hungry, and dehydrated. He is unable to provide a viable plan for food, clothing, or halfway. Assessment What has happened this shift: Patient napping on his bed at shift change. He's friendly and cooperative. Patient able to say hello and say how he's doing, before he loses it and starts mumbling delusions about DOLLY, NSA, . He denies all MH symptoms, but is obviously delusional and responding to IS. He comes out of his room for coffee, but can never remember what time it is served. Patient waiting to be discharged, so he can get his "pent[employer]" benefits. S/I, H/I: Denies A/VH: Responding to IS Sleep: Refer to sleep assessment ADL's: Independent Group attendance: N/A Were meds taken: Yes Any med S/E: None observed or reported Mental Status Exam Appearance: Disheveled, appropriately dressed in personal attire Eye contact: Good Behavior: Pleasant and cooperative, active on the unit Speech: Pressured, hyperverbal, mumbles Mood: "Good" Affect: Animated Thought process: Delusional, disorganized Thought Content: Meeting needs Cognition: A/O X 2 Insight: Poor Judgment: Poor Interventions PRN's used: None Therapeutic interventions: 1:1 assessment, maintained a safe and supportive environment, provided clear and simple instructions, therapeutic communication, active listening, encouragement to attend groups, provided distraction, redirection, limit setting, attempted reality orientation, provided positive reinforcement, and maintained Q15 minute safety checks. Restraints/seclusion/emergency medication: NA Justification of Continued Inpatient Treatment: Pt requires a safe and supportive environment, medication adjustment and monitoring, and interruption of current crisis.
[2021-07-12 08:00] VITALS: BP 136/95
[2021-07-12] MEDS: lactose-reduced food (Ensure High Protein) 237ml bottle PO SCH ×3 (08:00→18:05)
[2021-07-12] MEDS: OLANZAPINE 5 MG TABLET PO SCH (08:21)
[2021-07-12] MEDS: hyDRALAzine 10mg tablet PO SCH ×3 (08:21→21:00)
[2021-07-12] MEDS: atorvastatin 20mg tablet PO SCH (08:21)
[2021-07-12] MEDS: multivitamins, therapeutics tablet PO SCH (08:21)
[2021-07-12] MEDS: nicotine 21mg patch - 24 hr TD SCH (08:22)
[2021-07-12 13:00] VITALS: BP 154/107
--- NOTE | 2021-07-12 13:08 | NUR ---
Called the retirement in [place] with Jerardo to do a phone intake (ph# [phone]). Jerardo presented as disorganized, delusional, rambled on, gave multiple date of births. Spoke to retirement staff, Petrona, after the intake and she reported they are currently at capacity and they would not be able to take Jerardo with his current mental health symptoms. She also stated they cannot take people from out of [facility]. Informed her [facility] placed Jerardo at our facility. She reported she will follow up with [facility] staff. AGUILAR Cloud
[2021-07-12] MEDS: NICOTINE POLACRILEX 2 MG LOZENGE BC PRN (13:56)
--- NOTE | 2021-07-12 14:27 | NUR ---
Phone conversation with Darwin at [facility] regarding discharge plan. They have requested the Dr complete LPS referral on Jerardo. Ju will email greeting card writer their form for the Dr to complete. Explained his 5650 expires on 07/14/21. AGUILAR Cloud Addendum: 07/12/21 at 1430 by Ju Weaver SS Ju
--- NOTE | 2021-07-12 17:55 | NUR ---
Nursing Progress Note: Jerardo Legal hold: 5250 Client on involuntary status for GD Report received from GAIL Velasquez with use of SBAR Why are they here: Pt was placed on a 5150 in [facility]. Pt appeared to be disheveled, was hungry, and dehydrated. He is unable to provide a viable plan for food, clothing, or mcc. Assessment What has happened this shift: Patient received walking around the unit at change of shift. He joined in the community room with peers for breakfast. He was receptive to scheduled medication and 1:1 assessment. Patient presents as pleasant, polite, and cooperative with care. Patient noted endorsing paranoid delusions of being in the witness protection program. Patient denies SI/HI, AH or VH. He is observed walking around the unit throughout the day responding to internal stimuli. Patient observed mumbling quietly under his breath while making hand gestures into the air. Patient endorsed to this poem writer that he has been feeling damaged ever since he came to [place]. He continues to present as delusional during each conversation. He was active on the unit throughout the shift, noted walking up and down the hallways. He joined in the community room for all snack and meal times today. S/I, H/I: Denies A/VH: Denies, however, observed responding to internal stimuli throughout the day. Sleep: Patient slept 7.5 hours last night per NOC shift. No naps noted on this shift. ADL's: Independent Group attendance: No Were meds taken: Yes, without hesitation. Any med S/E: None observed or reported Mental Status Exam Appearance: Small Stature Balding Male dressed in a dirty salinas sweatshirt and karen bottoms. Eye contact: Good Behavior: Pleasant and cooperative. Speech: Pressured, hyper-verbal, mumbles Mood: "Feeling damaged Affect: Energetic Thought process: Delusional, disorganized Thought Content: Meeting needs. Paranoid delusions of being in the witness protection program. Cognition: A&O X 2 Insight: Poor Judgment: Poor Interventions PRN's used: Nicotine lozenge Therapeutic interventions: 1:1 assessment, maintained a safe and supportive environment, provided clear and simple instructions, therapeutic communication, active listening, encouragement to attend groups, provided distraction, redirection, limit setting, attempted reality orientation, provided positive reinforcement, and maintained Q15 minute safety checks. Restraints/seclusion/emergency medication: NA Justification of Continued Inpatient Treatment: Pt requires a safe and supportive environment, medication adjustment and monitoring, and interruption of current crisis.
[2021-07-12 19:30] VITALS: BP 128/86
[2021-07-12] MEDS: olanzapine 10mg tablet PO SCH (20:09)
--- NOTE | 2021-07-13 01:54 | NUR ---
Nursing Progress Note: Jerardo Legal hold: 5250 Client on involuntary status for GD Report received from GAIL Henriquez with use of SBAR Why are they here: Pt was placed on a 5150 in [facility]. Pt appeared to be disheveled, was hungry, and dehydrated. He is unable to provide a viable plan for food, clothing, or custodial. Assessment What has happened this shift: Pt in room sleeping at shift change. Went to [facility] room for 1:1 pt mumbling to self about the witness protection program and endorsing I/S. Pt did not want to remove his nicotine patch after talkking to him several times about removing it. Pt seen in community room drinking coffee and eating yogurt at snack time. Pt took evening meds w/o complications. Pt Hydralazine held due to SBP of 128. Pt continues to be polite and appropriate. Went to bed afer snack was given. S/I, H/I: Denies A/VH: Denies, however, observed responding to internal stimuli throughout the day. Sleep:See sleep hours ADL's: Independent Group attendance: No group in the evenings Were meds taken: Yes, without hesitation. Any med S/E: None observed or reported Mental Status Exam Appearance: Small Stature Balding Male dressed in a dirty [place] sweatshirt and karen bottoms. Eye contact: Good Behavior: Pleasant and cooperative. Speech: Pressured, hyper-verbal, mumbles Mood: tired Affect: animated Thought process: Delusional, disorganized Thought Content: Meeting needs. Paranoid delusions of being in the witness protection program. Cognition: A&O X 2 Insight: Poor Judgment: Poor Interventions PRN's used: none Therapeutic interventions: 1:1 assessment, maintained a safe and supportive environment, provided clear and simple instructions, therapeutic communication, active listening, encouragement to attend groups, provided distraction, redirection, limit setting, attempted reality orientation, provided positive reinforcement, and maintained Q15 minute safety checks. Restraints/seclusion/emergency medication: NA Justification of Continued Inpatient Treatment: Pt requires a safe and supportive environment, medication adjustment and monitoring, and interruption of current
[2021-07-13] MEDS: multivitamins, therapeutics tablet PO SCH (07:37)
[2021-07-13] MEDS: OLANZAPINE 5 MG TABLET PO SCH (07:37)
[2021-07-13] MEDS: atorvastatin 20mg tablet PO SCH (07:37)
[2021-07-13] MEDS: hyDRALAzine 10mg tablet PO SCH ×3 (07:38→21:00)
[2021-07-13] MEDS: nicotine 21mg patch - 24 hr TD SCH (07:44)
[2021-07-13 08:00] VITALS: BP 140/98
[2021-07-13] MEDS: lactose-reduced food (Ensure High Protein) 237ml bottle PO SCH ×3 (08:12→17:50)
--- NOTE | 2021-07-13 08:43 | NUR ---
Reassessment: Pt continues eating well with mostly 100% PO intake on regular diet meeting estimated nutrient needs. Noted pt now receiving an Ensure High Protein TIDWM of which pt is mostly consuming 100% of, exceeding estimated nutrient needs with roughly 152% maximum estimated energy needs and 233% maximum estimated protein needs. Recommend discontinuing ONS as it is not warranted. If pt still with c/o hunger following meals recommend supplementing with snacks/additional food rather than ONS given good meal acceptance. [facility] 07/13. No further nutrition intervention implemented at this time. Will continue to follow. Recommendations: 1. Continue regular diet 2. Discontinue Ensure High Protein TIDWM as pt exceeding maximum estimated nutrient needs by greater than 150% 3. Bowel care per rx 4. Weekly scaled wts Addendum: 07/13/21 at [address] Amended: Links added.
--- NOTE | 2021-07-13 08:46 | NUR ---
Reassessment: Pt continues eating well with mostly 100% PO intake on regular diet meeting estimated nutrient needs. Noted pt now receiving an Ensure High Protein TIDWM of which pt is mostly consuming 100% of, exceeding estimated nutrient needs with roughly 152% maximum estimated energy needs and 233% maximum estimated protein needs with meals and ONS combined. Recommend discontinuing ONS as it is not warranted. If pt still with c/o hunger following meals recommend supplementing with snacks/additional food rather than ONS given good meal acceptance. [facility] 07/13. No further nutrition intervention implemented at this time. Will continue to follow. Recommendations: 1. Continue regular diet 2. Discontinue Ensure High Protein TIDWM as pt exceeding maximum estimated nutrient needs by greater than 150% with meals and ONS combined 3. Bowel care per rx 4. Weekly scaled wts Addendum: 07/13/21 at [address] Amended: Links added.
--- NOTE | 2021-07-13 09:52 | NUR ---
Called Sylvester Higuera, and she reported she attempted to complete Medi-malcolm application with Jerardo, however, he was too disorganized and delusional to do so. Called Ju ( ) with [facility] to see if they can get him signed up for Medi-malcolm since he is currently a short pope. She is going to see if she can do so. AGUILAR Cloud Addendum: 07/13/21 at 1113 by Ju Weaver SS [facility] eligibility is going to start the Medi-malcolm application for Jerardo per Ju. AGUILAR Cloud
[2021-07-13 12:32] VITALS: BP 151/102
--- NOTE | 2021-07-13 14:04 | NUR ---
Nursing Progress Note: Legal hold: 5250 Client on involuntary status for GD Report received from nurse Eva REYNOLDS with use of SBAR Why are they here: Pt was placed on a 5150 in [facility]. Pt appeared to be disheveled, was hungry, and dehydrated. He is unable to provide a viable plan for food, clothing, or custodial. Assessment What has happened this shift: Pt was up before breakfast. Pt was cooperative with medications. Pt has very poor insight. Pt continues to insist that he does not have mental health problems. "I'm coherent, I'm good...not mental...medical, brain damage, medical brain damage." Pt is tangential and has fixed delusions. He is hyperverbal and mumbles at times, he rambles on, "PA, got to go here in [place]...I told them...pension, back pay...countermeasures...witness protection program." Pt did manage to convey in his disorganized, barely decipherable way that he is self conscious about going to group because of "pimples" on his face. S/I, H/I: Pt denies. A/VH: Pt denies though appears to be responding to internal stimuli at times. Sleep: Pt slept 8.25 hours last night per noc shift report. ADL's: Independent Group attendance: No Were meds taken: Yes Any med S/E: None noted or reported. Mental Status Exam Appearance: Older appearing, weathered skinned man with dark longish hair bald on top dressed in jeans and a gastelum sweatshirt. Eye contact: Fair to good. Behavior: Pleasant, cooperative, paces, enjoys coffee. Speech: Hyperverbal,somewhat rapid, mumbles frequently. Mood: Good. Affect: Animated. Thought process: Fixed delusions. Thought Content: He does not have mental health issues, he needs to get to the [place] so he can be given his back pay, he doesn't like to go to group because of his pimples. Cognition: A/O X 2 Insight: Poor Judgment: Poor Interventions PRN's used: None Therapeutic interventions: 1:1 assessment, maintained a safe and supportive environment, provided clear and simple instructions, therapeutic communication, active listening, medication administration/education/monitoring, encouragement to attend groups, provided distraction, redirection, attempted reality orientation, provided positive reinforcement, and maintained Q15 minute safety checks. Restraints/seclusion/emergency medication: N/A Justification of Continued Inpatient Treatment: Pt continues to be gravely disabled, he is unable to formulate a viable plan for food, clothing, and custodial. He came to us from [facility] here on a [place], [facility] is discussing an LPS referral.
[2021-07-13] MEDS ORDERED: benztropine 1 mg/ml 2ml ampule ONE (16:37)
[2021-07-13] MEDS ORDERED: LORazepam 2 mg/ml vial ONE (16:38)
[2021-07-13 19:37] VITALS: BP 136/87
[2021-07-13] MEDS: olanzapine 10mg tablet PO SCH (20:19)
--- NOTE | 2021-07-14 00:32 | NUR ---
Nursing Progress Note: Legal hold: 5250 Client on involuntary status for GD Report received from nurse Gilma RN with use of SBAR Why are they here: Pt was placed on a 5150 in [facility]. Pt appeared to be disheveled, was hungry, and dehydrated. He is unable to provide a viable plan for food, clothing, or assisted. Assessment What has happened this shift: Pt in room sleeping at shift change. When pt woke up 1:1, Pt denied all MH symptoms and stated that he didn't have any mental problems. Pt was mumbling about getting a pension and wanting senior care so he needed to get out of this place. Pt took Zyprexa 20mg, Hydralazine held due to SBP <140. Pt drank hot cocoa at snack time and sat and mumbled to self. Pt went to bed shortly after. S/I, H/I: Pt denies. A/VH: Pt denies though appears to be responding to internal stimuli at times. Sleep:See sleep hours ADL's: Independent Group attendance: No group in the evenings Were meds taken: Yes Any med S/E: None noted or reported. Mental Status Exam Appearance: Older appearing, weathered skinned man with dark longish hair bald on top dressed in jeans and a gastelum sweatshirt. Eye contact: Fair to good. Behavior: Pleasant, cooperative, paces, enjoys coffee. Speech: Hyperverbal,somewhat rapid, mumbles frequently. Mood: Good. Affect: Animated. Thought process: Fixed delusions. Thought Content: He does not have mental health issues, [facility] his [facility], he doesn't like to go to group because of his pimples. Cognition: A/O X 2 Insight: Poor Judgment: Poor Interventions PRN's used: None Therapeutic interventions: 1:1 assessment, maintained a safe and supportive environment, provided clear and simple instructions, therapeutic communication, active listening, medication administration/education/monitoring, encouragement to attend groups, provided distraction, redirection, attempted reality orientation, provided positive reinforcement, and maintained Q15 minute safety checks. Restraints/seclusion/emergency medication: N/A Justification of Continued Inpatient Treatment: Pt continues to be gravely disabled, he is unable to formulate a viable plan for food, clothing, and assisted. He came to us from [facility] here on a [place], [facility] is discussing an LPS referral.
[2021-07-14 07:15] VITALS: BP 140/89
[2021-07-14] MEDS: multivitamins, therapeutics tablet PO SCH (07:43)
[2021-07-14] MEDS: hyDRALAzine 10mg tablet PO SCH ×2 (07:43→12:33)
[2021-07-14] MEDS: atorvastatin 20mg tablet PO SCH (07:43)
[2021-07-14] MEDS: OLANZAPINE 5 MG TABLET PO SCH (07:44)
[2021-07-14] MEDS: nicotine 21mg patch - 24 hr TD SCH (07:47)
[2021-07-14] MEDS: lactose-reduced food (Ensure High Protein) 237ml bottle PO SCH ×3 (08:30→17:58)
[2021-07-14 12:33] VITALS: BP 119/89
--- NOTE | 2021-07-14 13:56 | NUR ---
LPS REFERRAL Completed and faxed LPS referral to [facility] ( ). AGUILAR Cloud
--- NOTE | 2021-07-14 14:30 | NUR ---
Nursing Progress Note: Legal hold: 5270 Client on involuntary status for GD Report received from nurse Eva REYNOLDS with use of SBAR Why are they here: Pt was placed on a 5150 in [facility]. Pt appeared to be disheveled, was hungry, and dehydrated. He is unable to provide a viable plan for food, clothing, or usp. Assessment What has happened this shift: Pt was up before breakfast drinking coffee. Pt was pleasant and cooperative with morning meds. Pt paces the unit speaking/mumbling to himself. Pt continues to have fixed delusions. Pt is polite with staff. Held 1300 hydralazine as BP was 119/89 with a pulse of 105. Discussed the frequent holding of BP med due to SBP < 140 with FINA Loo and questioned whether a different BP med would be more appropriate as hydralazine is not a first line/choice medication and was frequently being held due to not meeting parameters. FINA Loo stated that he will change it to propranolol. Pt was placed on a 5270 today and and LPS referral was completed and faxed to [facility]. S/I, H/I: Pt denies. A/VH: Pt denies though frequently talks to himself and appears to be responding to internal stimuli. Sleep: Pt slept 7.75 hours last night per noc shift report. ADL's: Independent Group attendance: No Were meds taken: Yes Any med S/E: None noted or reported. Mental Status Exam Appearance: Older appearing, weathered skinned man with dark longish hair bald on top dressed in jeans and a gastelum sweatshirt. Eye contact: Fair to good. Behavior: Pleasant, cooperative, paces, enjoys coffee. Speech: Hyperverbal,somewhat rapid, mumbles frequently. Mood: Good. Affect: Animated. Thought process: Fixed delusions, somewhat perseverative. Thought Content: Perseverates that he is in the witness protection program, a , and is owed back pay. Cognition: A/O X 2 Insight: Poor Judgment: Poor Interventions PRN's used: None Therapeutic interventions: 1:1 assessment, maintained a safe and supportive environment, provided clear and simple instructions, therapeutic communication, active listening, medication administration/education/monitoring, encouragement to attend groups, provided distraction, redirection, attempted reality orientation, provided positive reinforcement, and maintained Q15 minute safety checks. Restraints/seclusion/emergency medication: N/A Justification of Continued Inpatient Treatment: Pt continues to be gravely disabled, he is unable to formulate a viable plan for food, clothing, and usp. He came to us from [facility] here on a [place], [facility] wishes to pursue conservatorship.
--- NOTE | 2021-07-14 16:02 | NUR ---
Pt's propranolol was D/c'd. Pt has a new order for propranolol 10 mg PO TID.
[2021-07-14 20:02] VITALS: BP 143/89
[2021-07-14] MEDS: propranolol 10mg tablet PO SCH (20:26)
[2021-07-14] MEDS: olanzapine 10mg tablet PO SCH (20:26)
--- NOTE | 2021-07-14 21:05 | NUR ---
Nursing Progress Note: Legal hold: 5270 Client on involuntary status for GD Report received from GAIL Dillard with use of SBAR. Why are they here: Pt was placed on a 5150 in [facility]. Pt appeared to be disheveled, was hungry, and dehydrated. He is unable to provide a viable plan for food, clothing, or fdc. Assessment What has happened this shift: Patient was observed out of his room on occasion tonight. Patient is quiet but social. He retired to his room early after getting snacks of which he didn't eat. The patient believes he had a BM today. Patient tells this chief writer that he removed his nicotine patch earlier and threw it in the trash. It was not found. This patient is oriented to person and place, not to time or situation. He denies S/I or H/I. He is compliant with medications. The patient did get a shower this shift. S/I, H/I: Pt denies. A/VH: Pt denies, observed talking to self on day shift. Possible internal stimuli. Sleep: Will tally at 0500 hours. ADL's: Independent. Group attendance: No group on operation shift supervisor. Were meds taken: Yes, patient is medication compliant. Any med S/E: None noted or reported. Mental Status Exam Appearance: Slightly disheveled looking. Eye contact: Fair to good. Behavior: Quiet and cooperative. Speech: Soft and quiet, mumbling on occasion. Mood: Good. Affect: Animated. Thought process: Fixed delusions, somewhat perseverative. Thought Content: Perseverates that the government owes him back pay. Cognition: A/O X 2. Insight: Poor. Judgment: Poor. Interventions PRN's used: None. Therapeutic interventions: 1:1 assessment, maintained a safe and supportive environment, provided clear and simple instructions, therapeutic communication, active listening, medication administration/education/monitoring, encouragement to attend groups, provided distraction, redirection, attempted reality orientation, provided positive reinforcement, and maintained Q15 minute safety checks. Restraints/seclusion/emergency medication: N/A Justification of Continued Inpatient Treatment: Pt continues to be gravely disabled, he is unable to formulate a viable plan for food, clothing, and fdc. He came to us from [facility] here on a [place], [facility] wishes to pursue conservPellucid Analyticship.
[2021-07-15] MEDS: propranolol 10mg tablet PO SCH ×3 (07:56→20:32)
[2021-07-15] MEDS: atorvastatin 20mg tablet PO SCH (07:56)
[2021-07-15] MEDS: OLANZAPINE 5 MG TABLET PO SCH (07:56)
[2021-07-15] MEDS: multivitamins, therapeutics tablet PO SCH (07:56)
[2021-07-15 08:00] VITALS: BP 146/100
[2021-07-15] MEDS: lactose-reduced food (Ensure High Protein) 237ml bottle PO SCH ×3 (08:00→18:00)
[2021-07-15] MEDS: nicotine 21mg patch - 24 hr TD SCH (08:01)
--- NOTE | 2021-07-15 12:58 | NUR ---
MEDI-MALCOLM Received fax from [facility]. Jerardo now has full scope Medi-malcolm as of 07/14/21. AGUILAR Cloud
--- NOTE | 2021-07-15 14:04 | NUR ---
Nursing Progress Note: Legal hold: 5250 Client on involuntary status for GD Report received from nurse Earline RN with use of SBAR Why are they here: Pt was placed on a 5150 in [facility]. Pt appeared to be disheveled, was hungry, and dehydrated. He is unable to provide a viable plan for food, clothing, or nursing home. Assessment What has happened this shift: Pt was up before breakfast. Pt was cooperative with medications. Pt has very poor insight. Pt continues to insist that he does not have mental health problems and when questioned about his mental condition, pt quickly ended the conversation and left. Pt pacing at times and appears to be responding to internal stimuli. S/I, H/I: Pt denies. A/VH: Pt denies though appears to be responding to internal stimuli at times. Sleep: Pt slept 7.75 hours last night per noc shift report. ADL's: Independent Group attendance: No Were meds taken: Yes Any med S/E: None noted or reported. Mental Status Exam Appearance: Older appearing, weathered skinned man with dark longish hair bald on top dressed in jeans and a gastelum sweatshirt. Eye contact: Fair to good. Behavior: Pleasant, cooperative, paces, enjoys coffee. Speech: Hyperverbal,somewhat rapid, mumbles frequently. Mood: Good. Affect: Animated. Thought process: Fixed delusions. Thought Content: He does not have mental health issues, he [facility] so he [facility] be [facility] his back [facility], he doesn't like to go to group because of his pimples. Cognition: A/O X 2 Insight: Poor Judgment: Poor Interventions PRN's used: None Therapeutic interventions: 1:1 assessment, maintained a safe and supportive environment, provided clear and simple instructions, therapeutic communication, active listening, medication administration/education/monitoring, encouragement to attend groups, provided distraction, redirection, attempted reality orientation, provided positive reinforcement, and maintained Q15 minute safety checks. Restraints/seclusion/emergency medication: N/A Justification of Continued Inpatient Treatment: Pt continues to be gravely disabled, he is unable to formulate a viable plan for food, clothing, and nursing home. He came to us from [facility] here on a [place], [facility] is discussing an LPS referral.
[2021-07-15 19:00] VITALS: BP 139/92
[2021-07-15] MEDS: olanzapine 10mg tablet PO SCH (20:30)
--- NOTE | 2021-07-16 02:05 | NUR ---
Nursing Progress Note: Legal hold: 5250 Client on involuntary status for GD Report received from GAIL Dillard with use of SBAR Why are they here: Pt was placed on a 5150 in [facility]. Pt appeared to be disheveled, was hungry, and dehydrated. He is unable to provide a viable plan for food, clothing, or fdc. Assessment What has happened this shift: Patient self isolated in his room following shift change. He remains polite but confused. He is W/D with fair color. Patient primarily slept this shift. S/I, H/I: Pt denies. A/VH: Pt looks to be responding to internal stimuli at times. Sleep: Will tally at 0500 hours. ADL's: Independent Group attendance: No group on nights. Were meds taken: Yes, medication compliant. Any med S/E: None noted or reported. Mental Status Exam Appearance: Disheveled looking male, looks older than his reported age. Eye contact: Fair. Behavior: Isolating and sleeping. Speech: Hyperverbal,somewhat rapid, mumbles frequently. Mood: Good. Affect: Animated. Thought process: Fixed delusions. Thought Content: Delusional. Cognition: Alert and oriented to person and place, not to time and situation. Insight: Poor. Judgment: Poor. Interventions PRN's used: None Therapeutic interventions: 1:1 assessment, maintained a safe and supportive environment, provided clear and simple instructions, therapeutic communication, active listening, medication administration/education/monitoring, encouragement to attend groups, provided distraction, redirection, attempted reality orientation, provided positive reinforcement, and maintained Q15 minute safety checks. Restraints/seclusion/emergency medication: N/A Justification of Continued Inpatient Treatment: Pt continues to be gravely disabled, he is unable to formulate a viable plan for food, clothing, and fdc. He came to us from [facility] here on a [place], [facility] is discussing an LPS referral.
[2021-07-16 07:20] VITALS: BP 126/79
[2021-07-16] MEDS: propranolol 10mg tablet PO SCH ×3 (07:43→20:57)
[2021-07-16] MEDS: multivitamins, therapeutics tablet PO SCH (07:43)
[2021-07-16] MEDS: lactose-reduced food (Ensure High Protein) 237ml bottle PO SCH ×3 (07:43→17:55)
[2021-07-16] MEDS: nicotine 21mg patch - 24 hr TD SCH (07:43)
[2021-07-16] MEDS: OLANZAPINE 5 MG TABLET PO SCH (07:43)
[2021-07-16] MEDS: atorvastatin 20mg tablet PO SCH (07:43)
--- NOTE | 2021-07-16 16:31 | NUR ---
Nursing Progress Note: Jerardo Legal hold: 5270 Client on involuntary status for GD Report received from ELLYN Dugan with use of SBAR Why they are here: Pt was placed on a 5150 in [facility]. Pt appeared to be disheveled, was hungry, and dehydrated. He is unable to provide a viable plan for food, clothing, or [place]. Assessment What has happened this shift: Patient is resting quietly in bed at the start of the shift. Cooperative with medication and 1:1 assessment. Speech is mumbled and disorganized. Patient paces the halls frequently and talks to himself in mumbles. S/I, H/I: Denies A/VH: Appears to be responding to internal stimuli Sleep: 1 hour in the morning ADL's: Independent Group attendance: NA Were meds taken: Yes Any med S/E: None observed or reported. Mental Status Exam Appearance: Disheveled looking male, looks older than his reported age wearing casual personal clothing. Eye contact: Fair Behavior: Isolating and sleeping. Speech: Mumbled Mood: Euthymic Affect: Constricted Thought process: Delusional Thought Content: Poverty of thought Cognition: A/O x2 to person and place Insight: Poor. Judgment: Poor Interventions PRN's used: None Therapeutic interventions: 1:1 assessment, maintained a safe and supportive environment, provided clear and simple instructions, therapeutic communication, active listening, medication administration/education/monitoring, encouragement to attend groups, provided distraction, redirection, attempted reality orientation, provided positive reinforcement, and maintained Q15 minute safety checks. Restraints/seclusion/emergency medication: N/A Justification of Continued Inpatient Treatment: Pt continues to be gravely disabled, he is unable to formulate a viable plan for food, clothing, and [place]. He came to us from [facility] here on a [place], [facility] is discussing an LPS referral.
[2021-07-16 19:00] VITALS: BP 149/92
[2021-07-16 20:00] VITALS: BP 149/95
[2021-07-16] MEDS: olanzapine 10mg tablet PO SCH (20:57)
--- NOTE | 2021-07-16 22:58 | NUR ---
Nursing Progress Note: Jerardo Legal hold: 5270 Client on involuntary status for GD Report received from RN with use of SBAR Why they are here: Pt was placed on a 5150 in [facility]. Pt appeared to be disheveled, was hungry, and dehydrated. He is unable to provide a viable plan for food, clothing, or senior care. Assessment What has happened this shift: Pt walking around unit at shift change. Pt seen mumbling to self in a low voice. Pt polite and appropriate when conversing. Pt ate snack in community room with cohorts, sat bey self. Pt went to bed shortly after. Took medications w/o complaint. When asked about mental health s/s, pt denies and states he is not here for MH reasons and he wont have anything to do with mental health programs. Pt went to sleep shortly after. S/I, H/I: Denies A/VH: Appears to be responding to internal stimuli Sleep: See sleep hours ADL's: Independent Group attendance: NA Were meds taken: Yes Any med S/E: None observed or reported. Mental Status Exam Appearance: Disheveled looking male, looks older than his reported age wearing casual personal clothing. Eye contact: Fair Behavior: Isolating and sleeping. Speech: Mumbled Mood: Euthymic Affect: Constricted Thought process: Delusional Thought Content: Poverty of thought Cognition: A/O x2 to person and place Insight: Poor. Judgment: Poor Interventions PRN's used: None Therapeutic interventions: 1:1 assessment, maintained a safe and supportive environment, provided clear and simple instructions, therapeutic communication, active listening, medication administration/education/monitoring, encouragement to attend groups, provided distraction, redirection, attempted reality orientation, provided positive reinforcement, and maintained Q15 minute safety checks. Restraints/seclusion/emergency medication: N/A Justification of Continued Inpatient Treatment: Pt continues to be gravely disabled, he is unable to formulate a viable plan for food, clothing, and senior care. He came to us from [facility] here on a Short [place], [facility] is discussing an LPS referral.
[2021-07-17] MEDS: multivitamins, therapeutics tablet PO SCH (08:25)
[2021-07-17] MEDS: OLANZAPINE 5 MG TABLET PO SCH (08:25)
[2021-07-17] MEDS: atorvastatin 20mg tablet PO SCH (08:25)
[2021-07-17] MEDS: propranolol 10mg tablet PO SCH ×3 (08:25→20:53)
[2021-07-17] MEDS: nicotine 21mg patch - 24 hr TD SCH (08:27)
[2021-07-17] MEDS: lactose-reduced food (Ensure High Protein) 237ml bottle PO SCH ×3 (08:28→17:53)
[2021-07-17 08:36] VITALS: BP 110/75
[2021-07-17 12:50] VITALS: BP 136/98
--- NOTE | 2021-07-17 17:31 | NUR ---
Nursing Progress Note: Jerardo Legal hold: 5270 Client on involuntary status for GD Report received from GAIL Lnyn with use of SBAR Why they are here: Pt was placed on a 5150 in [facility]. Pt appeared to be disheveled, was hungry, and dehydrated. He is unable to provide a viable plan for food, clothing, or nursing home. Assessment What has happened this shift: Patient received walking around the unit at shift change. He was receptive to scheduled medication and 1:1 assessment. Patient joined with peers for breakfast in the community room. He continues to present as pleasant, polite, and cooperative with care. Patient noted endorsing paranoid delusions of being in a witness protection program. He was noted giving this continuity writer a false date to protect his identity. Patient noted to be disorganized, making nonsensical statements of [place] control, the [place], job resumes, and global court cases. Patient denies SI/HI, AH or VH. He is observed walking around the unit throughout the day responding to internal stimuli. Patient endorsed that he needs to get into [facility] but is unable to describe any other plan for food, clothing, or nursing home. He continues to present as delusional during each conversation. Patient was noted to be withdrawn to himself, noted pacing up and down the hallway throughout the shift. Patient noted frequently asking staff for coffee. He joined in the community room for all snack and meal times. S/I, H/I: Denies A/VH: Denies, however, appears to be responding to internal stimuli Sleep: No naps noted on this shift ADL's: Independent Group attendance: No group provided today Were meds taken: Yes Any med S/E: None observed or reported. Mental Status Exam Appearance: Disheveled looking male, looks older than his reported age wearing casual personal clothing. Eye contact: Poor Behavior: Cooperative, withdrawn, isolative Speech: Mumbled, disorganized Mood: Slightly anxious Affect: Constricted Thought process: Delusional, tangential, and disorganized Thought Content: Delusions of [place] control, the [place], job resumes, and global court cases. Patient believes he is in a witness protection program. Cognition: A&O x2 to person and place Insight: Poor Judgment: Poor Interventions PRN's used: None Therapeutic interventions: 1:1 assessment, maintained a safe and supportive environment, provided clear and simple instructions, therapeutic communication, active listening, medication administration/education/monitoring, encouragement to attend groups, provided distraction, redirection, attempted reality orientation, provided positive reinforcement, and maintained Q15 minute safety checks. Restraints/seclusion/emergency medication: N/A Justification of Continued Inpatient Treatment: Pt continues to be gravely disabled, he is unable to formulate a viable plan for food, clothing, and nursing home. He came to us from [facility] here on a Short [place], [facility] is discussing an LPS referral.
[2021-07-17 20:00] VITALS: BP 134/87
[2021-07-17] MEDS: olanzapine 10mg tablet PO SCH (20:53)
[2021-07-17] MEDS: NICOTINE POLACRILEX 2 MG LOZENGE BC PRN (21:46)
--- NOTE | 2021-07-18 01:40 | NUR ---
Nursing Progress Note: Jerardo Legal hold: 5270 Client on involuntary status for GD Report received from GAIL Lynn with use of SBAR Why they are here: Pt was placed on a 5150 in [facility]. Pt appeared to be disheveled, was hungry, and dehydrated. He is unable to provide a viable plan for food, clothing, or detention. Assessment What has happened this shift: Pt lying down ion room awake at shift change. Helped make pts bed as sheets were off. Pt was very happy to have his sheets fixed. Pt was found pacing in hallway talking to self at times. Pt would also sit in community room by himself, self isolating from other pts. Pt asked for coffee with snack. Pt asked what his meds were at med pass. It was explained to pt what the meds were and that he received the same medications from the night before. The pt approached this nurse after med pass and sat on the ground at the entrance of the observation room and reported that the [facility] government was waiting for him as he was in the witness protection plan there and that if they wanted to come collect him he'd be okay with that. The patient paced the hallway for an hour after that mumbling to self and went to bed after that. S/I, H/I: Denies A/VH: Denies, however, appears to be responding to internal stimuli Sleep:See sleep hours ADL's: Independent Group attendance: No group in the evening Were meds taken: Yes Any med S/E: None observed or reported. Mental Status Exam Appearance: Disheveled looking male, looks older than his reported age wearing casual personal clothing. Eye contact: Poor Behavior: Cooperative, withdrawn, isolative Speech: Mumbled, disorganized Mood: Slightly anxious Affect: Constricted Thought process: Delusional, tangential, and disorganized Thought Content: Delusions of [place] control, the [place], job resumes, and global court cases. Patient believes he is in a witness protection program. Cognition: A&O x2 to person and place Insight: Poor Judgment: Poor Interventions PRN's used: None Therapeutic interventions: 1:1 assessment, maintained a safe and supportive environment, provided clear and simple instructions, therapeutic communication, active listening, medication administration/education/monitoring, encouragement to attend groups, provided distraction, redirection, attempted reality orientation, provided positive reinforcement, and maintained Q15 minute safety checks. Restraints/seclusion/emergency medication: N/A Justification of Continued Inpatient Treatment: Pt continues to be gravely disabled, he is unable to formulate a viable plan for food, clothing, and detention. He came to us from [facility] here on a Short [place], [facility] is discussing an LPS referral.
[2021-07-18 07:44] VITALS: BP 114/70
[2021-07-18] MEDS: lactose-reduced food (Ensure High Protein) 237ml bottle PO SCH ×3 (08:22→18:02)
[2021-07-18] MEDS: multivitamins, therapeutics tablet PO SCH (08:23)
[2021-07-18] MEDS: OLANZAPINE 5 MG TABLET PO SCH (08:23)
[2021-07-18] MEDS: atorvastatin 20mg tablet PO SCH (08:23)
[2021-07-18] MEDS: nicotine 21mg patch - 24 hr TD SCH (08:24)
[2021-07-18] MEDS: propranolol 10mg tablet PO SCH ×3 (08:25→20:33)
--- NOTE | 2021-07-18 11:15 | NUR ---
Faxed last couple days notes to Betsy at [facility] as part of LPS evaluation. Scheduled phone interview for 1:30 today. [employer] will assist with the phone call. # [phone] AGUILAR Cloud
--- NOTE | 2021-07-18 13:38 | NUR ---
Assisted Jerardo with a phone interview with Betsy with [facility] Public Guardian (ph# [phone]). Jerardo rambled on about being in witness protection and that he does not need to have anything to do with conservatorship. He would not cooperate with the interview and left the room. Betsy reported they are going to try to file a Temporary Conservatorship by Sunday (07/22/21). AGUILAR Cloud
[2021-07-18] MEDS: LORazepam 1 MG tablet PO PRN (16:26)
--- NOTE | 2021-07-18 17:59 | NUR ---
Nursing Progress Note: Legal hold: 5270 Client on involuntary status for GD Report received from GAIL Gill with use of SBAR Why they are here: Pt was placed on a 5150 in [facility]. Pt appeared to be disheveled, was hungry, and dehydrated. He is unable to provide a viable plan for food, clothing, or senior living. Assessment What has happened this shift: Received patient while he was sleeping in his bed. Patient woke up at approximately 0750 and went to the dining room for breakfast. Patients medication administered after breakfast. Completed 1:1 patient assessment and patient interview. Patient stated Marcela had a good night. Patient requested another cup of decaf coffee. Patient again informed Im a witness for the Witness Protection Program. BP stable. Patient was encouraged to attend the afternoon group meeting, and attended for short periods of time. Patient ambulates the hager frequently, and at times he can speed up his steps quickly while looking down and have a close run in with peers or staff. Patient was responding to internal stimuli while ambulating in the hallway at a fast pace, at approximately 1625. Ativan po was administered with good results. Patient rested on his bed for a brief period of time. Patient attended his court hearing this afternoon, and when he was dismissed from the meeting came out of the room. Brief interaction was had with the patient who informed that Ill be here for a few more weeks. Informed patient that although I am sure he was disappointed about not going home, but did inform the patient that I enjoy him here, that he is always kind and says thank you and please, and Marcela observed him improving in so many ways. The patient looked up at me with his eyes wide open, and said Im glad you feel that way, its nice to hear. Patient walked away with a nice smile on his face. Will continue to encourage the patient and support him in any way that he needs. S/I, H/I: Denies A/VH: Responding verbally to internal stimuli. Sleep: 5.0 hours ADL's: Independent Group attendance: There was no morning Group Meeting. Patient did attend the afternoon Group Therapy for short periods of time. Were meds taken: Yes, without hesitation. Any med S/E: None observed or reported. Mental Status Exam Appearance: Disheveled looking male, looks older than his reported age wearing casual personal clothing. Eye contact: Poor, looks down at the ground when speaking to him. Behavior: Cooperative, withdrawn, isolative Speech: Mumbled, disorganized Mood: Slightly anxious Affect: Constricted Thought process: Delusional, tangential, and disorganized Thought Content: Delusions of [place] control, the [place], job resumes, and global court cases. Patient believes he is in a witness protection program. Cognition: A&O x2 to person and place Insight: Poor Judgment: Poor Interventions PRN's used: Ativan Therapeutic interventions: 1:1 assessment, maintained a safe and supportive environment, provided clear and simple instructions, therapeutic communication, active listening, medication administration/education/monitoring, encouragement to attend groups, provided distraction, redirection, attempted reality orientation, provided positive reinforcement, and maintained Q15 minute safety checks. Restraints/seclusion/emergency medication: N/A Justification of Continued Inpatient Treatment: Pt continues to be gravely disabled, he is unable to formulate a viable plan for food, clothing, and senior living. He came to us from [facility] here on a Short [place], [facility] is discussing an LPS referral.
[2021-07-18 19:40] VITALS: BP 114/70
[2021-07-18] MEDS: olanzapine 10mg tablet PO SCH (20:33)
--- NOTE | 2021-07-19 00:48 | NUR ---
Nursing Progress Note: Legal hold: 5270 Client on involuntary status for GD Report received from GAIL Dillard with use of SBAR Why they are here: Pt was placed on a 5150 in [facility]. Pt appeared to be disheveled, was hungry, and dehydrated. He is unable to provide a viable plan for food, clothing, or halfway. Assessment What has happened this shift: Pt sleeping at start of shift. Wakened easily for snack. Went to group room to eat returned to room. Pt took all meds was cooperative and pleasant with care. Went back to sleep. S/I, H/I: Denies A/VH: Denied Sleep: Asleep at this time. ADL's: Independent Group attendance: NA Were meds taken: Yes, without hesitation. Any med S/E: None observed or reported. Mental Status Exam Appearance: Disheveled looking male, looks older than his reported age wearing casual personal clothing. Eye contact: Poor, looks down at the ground when speaking to him. Behavior: Cooperative, withdrawn, isolative Speech: Mumbled, disorganized Mood: Slightly anxious Affect: Constricted Thought process: Delusional, tangential, and disorganized Thought Content: No delusional thoughts expressed this shift. Cognition: A&O x2 to person and place Insight: Poor Judgment: Poor Interventions PRN's used: None Therapeutic interventions: 1:1 assessment, maintained a safe and supportive environment, provided clear and simple instructions, therapeutic communication, active listening, medication administration/education/monitoring, encouragement to attend groups, provided distraction, redirection, attempted reality orientation, provided positive reinforcement, and maintained Q15 minute safety checks. Restraints/seclusion/emergency medication: N/A Justification of Continued Inpatient Treatment: Pt continues to be gravely disabled, he is unable to formulate a viable plan for food, clothing, and halfway. He came to us from [facility] here on a Short [place], [facility] is discussing an LPS referral.
[2021-07-19 07:35] VITALS: BP 115/76
[2021-07-19] MEDS: lactose-reduced food (Ensure High Protein) 237ml bottle PO SCH ×3 (08:15→17:51)
[2021-07-19] MEDS: atorvastatin 20mg tablet PO SCH (08:17)
[2021-07-19] MEDS: multivitamins, therapeutics tablet PO SCH (08:17)
[2021-07-19] MEDS: propranolol 10mg tablet PO SCH ×3 (08:17→20:11)
[2021-07-19] MEDS: OLANZAPINE 5 MG TABLET PO SCH (08:17)
[2021-07-19] MEDS: nicotine 21mg patch - 24 hr TD SCH (08:19)
--- NOTE | 2021-07-19 08:21 | NUR ---
BACKGROUND INFO [facility] Public Guardian, Betsy, was able to locate Jerardo's sister who provided the following information: Per Jerardo's sister, he was diagnosed with Schizophrenia at a young age. He lived with his mother until he was almost 41 when she passed. A couple of years after, he fled to [place] believing he was the heir to the royal thromn. Sister filed a missing person's report and was informed of his whereabouts when he returned from [place] in the early . Since then she has not had any contact with client. She further stated client has a history of being violent and non compliant. AGUILAR Cloud Addendum: 07/20/21 at 0805 by Ju Weaver Additional info provided: Jerardo has a son, it us unknown if he is alive or not. Jerardo was living in [place] at one point. He has not collected SSI since 01/2020. Public Guardian will attempt to release the funds so they can utilize them towards placement. AGUILAR Cloud
[2021-07-19 13:20] VITALS: BP 122/78
--- NOTE | 2021-07-19 16:40 | NUR ---
Nursing Progress Note: LUIS Legal hold: 5270 Expires 08/13 Client on involuntary status for GD Report received from ELLYN Velasquez with use of SBAR Why they are here: Pt was placed on a 5150 in [facility]. Pt appeared to be disheveled, was hungry, and dehydrated. He is unable to provide a viable plan for food, clothing, or [place]. Assessment What has happened this shift: Received patient sleeping at shift change, no distress noted. Pt woke prior to breakfast and began pacing hager as is his routine. Pt was compliant with care and medication. Pt engages minimally in conversation. Continues to pace hager. When asked about A/VH pt stated I have a computer in my brain, but no voices. Pt presents disorganized in his thoughts. Pt has a stutter when he speaks. S/I, H/I: Denies both. A/VH: Denies, but is responding verbally to internal stimuli. Sleep: 6.0 hours per sleep assessment. No naps today. ADL's: Independent Group attendance: Yes Were meds taken: Yes, without hesitation. Any med S/E: None observed or reported. Mental Status Exam Appearance: Disheveled looking male, looks older than his reported age wearing casual personal clothing. Scruffy holden Eye contact: Poor. Behavior: Cooperative, withdrawn, isolative. Paces hager. Speech: Mumbled, disorganized Mood: Slightly anxious Affect: Constricted Thought process: Delusional, tangential, and disorganized Thought Content: Delusions of being in the and having a computer in his brain. Cognition: A&O x2 to person and place Insight: Poor Judgment: Poor Interventions PRN's used: None Therapeutic interventions: Maintained a safe and supportive environment, provided clear and simple instructions, therapeutic communication, active listening, medication administration/education/monitoring, encouragement to attend groups, provided distraction, redirection, attempted reality orientation, provided positive reinforcement, and maintained Q15 minute safety checks. Restraints/seclusion/emergency medication: N/A Justification of Continued Inpatient Treatment: Pt continues to be gravely disabled, he is unable to formulate a viable plan for food, clothing, and [place]. He came to us from [facility] here on a Short [place], [facility] is discussing an LPS referral.
[2021-07-19 19:57] VITALS: BP 131/85
[2021-07-19] MEDS: olanzapine 10mg tablet PO SCH (20:11)
--- NOTE | 2021-07-20 01:09 | NUR ---
Nursing Progress Note: Legal hold: 5270 Client on involuntary status for GD Report received from nurse Gilma REYNOLDS with use of SBAR Why are they here: Pt was placed on a 5150 in [facility]. Pt appeared to be disheveled, was hungry, and dehydrated. He is unable to provide a viable plan for food, clothing, or penitentiary. Assessment What has happened this shift: Pt is visible on the unit and medication compliant. He is observed mumbling to himself. Pt is pleasant on assessment and cooperative. Pt makes non linear statements in a soft spoken voice. He denies SI/HI/AH/VH. S/I, H/I: Pt denies. A/VH: Pt denies though appears to be responding to internal stimuli. Sleep: see sleep hours ADL's: Independent Group attendance: No Were meds taken: yes Any med S/E: N/A Mental Status Exam Appearance: Older balding, tanned man with dark hair and scratch hidalgo on his nose dressed in green unit scrubs and a gastelum hoodie. Eye contact: Fair Behavior: Cooperative, restless, paces the unit and talks to himself. Speech: Clear, soft, Mood: Calm Affect: Mildly guarded. Thought process: Delusional Thought Content: wants to know when he can leave and if he can have a "double portion" of food Cognition: A/O X2, oriented to person and place. Insight: Poor Judgment: Poor Interventions PRN's used: None Therapeutic interventions: 1:1 assessment, establishment of rapport, maintained a safe and supportive environment, provided clear and simple instructions, therapeutic communication, active listening, encouragement to attend groups, provided distraction, direction, positive reinforcement, reality orientation, and maintained Q15 minute safety checks. Restraints/seclusion/emergency medication: N/A Justification of Continued Inpatient Treatment: Pt requires a safe and supportive environment, medication adjustment and monitoring, and interruption of current crisis.
[2021-07-20 07:31] VITALS: BP 112/75
[2021-07-20] MEDS: lactose-reduced food (Ensure High Protein) 237ml bottle PO SCH ×2 (07:52→13:18)
[2021-07-20] MEDS: multivitamins, therapeutics tablet PO SCH (07:52)
[2021-07-20] MEDS: OLANZAPINE 5 MG TABLET PO SCH (07:52)
[2021-07-20] MEDS: atorvastatin 20mg tablet PO SCH (07:52)
[2021-07-20] MEDS: propranolol 10mg tablet PO SCH ×3 (07:52→20:26)
[2021-07-20] MEDS: nicotine 21mg patch - 24 hr TD SCH (07:53)
[2021-07-20 12:52] VITALS: BP 140/88
[2021-07-20 13:17] VITALS: BP 140/88
--- NOTE | 2021-07-20 13:44 | NUR ---
Reassessment: Pt continues eating well with mostly 100% PO intake on regular diet meeting estimated nutrient needs. Noted pt still receiving an Ensure High Protein TIDWM of which pt is mostly consuming 100% of, exceeding estimated nutrient needs with roughly 152% maximum estimated energy needs and 233% maximum estimated protein needs with meals and ONS combined. D/w RN recommendation to discontinue ONS as it is not warranted. If pt still with c/o hunger following meals recommend supplementing with snacks/additional food rather than ONS given good meal acceptance. LBM 07/19. No further nutrition intervention implemented at this time. Will continue to follow. Recommendations: 1. Continue regular diet 2. Discontinue Ensure High Protein TIDWM as pt exceeding maximum estimated nutrient needs by greater than 150% with meals and ONS combined 3. Bowel care per rx 4. Weekly scaled wts Addendum: 07/20/21 at [address] Amended: Links added.
--- NOTE | 2021-07-20 14:16 | NUR ---
Nursing Progress Note: LUIS Legal hold: 5270 Expires 08/13 Client on involuntary status for GD Report received from ELLYN Velasquez with use of SBAR Why they are here: Pt was placed on a 5150 in [facility]. Pt appeared to be disheveled, was hungry, and dehydrated. He is unable to provide a viable plan for food, clothing, or assisted. Assessment What has happened this shift: Received patient sleeping at shift change, no distress noted. Pt woke prior to breakfast and began pacing hager as is his routine. Pt was compliant with care and medication. Pt engages minimally in conversation. Continues to pace hager. Pt continues to present slightly disorganized and fixated delusions of him being in the . Pt does not engage in conversation unless spoken too. Pt is polite, no behaviors to report. Pt is being conserved by [facility]. S/I, H/I: Denies both. A/VH: Denies, but is responding verbally to internal stimuli. Sleep: 7.75 hours per sleep assessment. No naps today. ADL's: Independent Group attendance: Were meds taken: Yes, without hesitation. Any med S/E: None observed or reported. Mental Status Exam Appearance: Disheveled looking male, looks older than his reported age wearing casual personal clothing. Scruffy holden Eye contact: Poor. Behavior: Cooperative, withdrawn, isolative. Paces hager. Speech: Mumbled, disorganized Mood: Slightly anxious Affect: Constricted Thought process: Delusional, tangential, and disorganized Thought Content: Delusions of being in the and having a computer in his brain. Cognition: A&O x2 to person and place Insight: Poor Judgment: Poor Interventions PRN's used: None Therapeutic interventions: Maintained a safe and supportive environment, provided clear and simple instructions, therapeutic communication, active listening, medication administration/education/monitoring, encouragement to attend groups, provided distraction, attempted reality orientation, provided positive reinforcement, and maintained Q15 minute safety checks. Restraints/seclusion/emergency medication: N/A Justification of Continued Inpatient Treatment: Pt continues to be gravely disabled, he is unable to formulate a viable plan for food, clothing, and assisted. He came to us from [facility] here on a [place], [facility] is discussing an LPS referral.
[2021-07-20] MEDS: NICOTINE POLACRILEX 2 MG LOZENGE BC PRN (15:51)
[2021-07-20 20:00] VITALS: BP 141/89
[2021-07-20] MEDS: olanzapine 10mg tablet PO SCH (20:26)
--- NOTE | 2021-07-20 21:47 | NUR ---
Nursing Progress Note: Legal hold: 5270 Client on involuntary status for GD Report received from nurse Gilma REYNOLDS with use of SBAR Why are they here: Pt was placed on a 5150 in [facility]. Pt appeared to be disheveled, was hungry, and dehydrated. He is unable to provide a viable plan for food, clothing, or fci. Assessment What has happened this shift: Pt is visible on the unit and medication compliant. He is very polite and thank he addresses RN as "tran". Pt is pleasant on assessment and cooperative. Pt makes non linear statements in a soft spoken voice. He denies SI/HI/AH/VH. S/I, H/I: Pt denies. A/VH: Pt denies though appears to be responding to internal stimuli. Sleep: see sleep hours ADL's: Independent Group attendance: No Were meds taken: yes Any med S/E: N/A Mental Status Exam Appearance: disheveled. Eye contact: Fair Behavior: Cooperative, restless, paces the unit and talks to himself. Speech: Clear, soft, Mood: Calm Affect: dulled Thought process: Delusional Thought Content: ISRAEL Cognition: A/O X2, oriented to person and place. Insight: Poor Judgment: Poor Interventions PRN's used: None Therapeutic interventions: 1:1 assessment, establishment of rapport, maintained a safe and supportive environment, provided clear and simple instructions, therapeutic communication, active listening, encouragement to attend groups, provided distraction, direction, positive reinforcement, reality orientation, and maintained Q15 minute safety checks. Restraints/seclusion/emergency medication: N/A Justification of Continued Inpatient Treatment: Pt requires a safe and supportive environment, medication adjustment and monitoring, and interruption of current crisis.
[2021-07-21 07:18] VITALS: BP 123/73
[2021-07-21] MEDS: propranolol 10mg tablet PO SCH ×3 (08:13→20:34)
[2021-07-21] MEDS: OLANZAPINE 5 MG TABLET PO SCH (08:13)
[2021-07-21] MEDS: atorvastatin 20mg tablet PO SCH (08:14)
[2021-07-21] MEDS: multivitamins, therapeutics tablet PO SCH (08:14)
[2021-07-21] MEDS: nicotine 21mg patch - 24 hr TD SCH (08:14)
--- NOTE | 2021-07-21 15:06 | NUR ---
Assisted Jerardo with calling Betsy with [facility] (ph# [phone]) so she could inform him of the court dates regarding conservatorship (08/01/21 and 08/29/21). Betsy reported court will be held via Zoom. Jerardo became quite agitated and was rambling about "federal law books" and stated, "I will not allow this". His voice was quite loud and he got up and walked out before Betsy could finish informing him of the conservatorship process. Dyllan Weaver LMFT
--- NOTE | 2021-07-21 17:26 | NUR ---
Nursing Progress Note: Jerardo Legal hold: 5270 Client on involuntary status for GD Report received from ELLYN Velasquez with use of SBAR Why they are here: Pt was placed on a 5150 in [facility]. Pt appeared to be disheveled, was hungry, and dehydrated. He is unable to provide a viable plan for food, clothing, or long term. Assessment What has happened this shift: Patient received sleeping in his room at at shift change. He was observed walking up and down the hallway shortly after, asking staff for coffee. Patient was receptive to 1:1 assessment, lungs CTA. Patient observed sitting in the community room for breakfast, noted quietly eating by himself. He was receptive to scheduled medication. Patient approached staff shortly after breakfast asking to be released, endorsing that he came here by accident. Patient unable to verbalize viable means of food, clothing or long term. He was noted muttering nonsensical statements and delusions of being in a witness protection program. When asked questions of discharge plans patient quickly says thank you tran and proceeds to walk away. Patient denies SI/HI, AH or VH. He is observed walking around the unit throughout the day responding to internal stimuli. Patient endorsed that he wants to get out of here as soon as possible. He continues to present as withdrawn, noted pacing up and down the hallway throughout the shift. Patient does not engage in conversation unless spoken to. He joined in the community room for all snack and meal times. S/I, H/I: Denies both. A/VH: Denies, but is responding verbally to internal stimuli. Sleep: No naps noted on this shift. ADL's: Independent Group attendance: No Were meds taken: Yes, without hesitation. Any med S/E: None observed or reported. Mental Status Exam Appearance: Disheveled looking male, looks older than his reported age wearing casual personal clothing. Scruffy holden Eye contact: Poor. Behavior: Cooperative, withdrawn, isolative. Paces hager. Speech: Mumbled, disorganized Mood: Slightly anxious Affect: Constricted Thought process: Delusional, tangential, and disorganized Thought Content: Delusions of being in a witness protection program. Cognition: A&O x3, not to event Insight: Poor Judgment: Poor Interventions PRN's used: None Therapeutic interventions: Maintained a safe and supportive environment, provided clear and simple instructions, therapeutic communication, active listening, medication administration/education/monitoring, encouragement to attend groups, provided distraction, attempted reality orientation, provided positive reinforcement, and maintained Q15 minute safety checks. Restraints/seclusion/emergency medication: N/A Justification of Continued Inpatient Treatment: Pt continues to be gravely disabled, he is unable to formulate a viable plan for food, clothing, and long term. He came to us from [facility] here on a [place], [facility] is discussing an LPS referral.
[2021-07-21 20:01] VITALS: BP 130/89
[2021-07-21] MEDS: olanzapine 10mg tablet PO SCH (20:33)
--- NOTE | 2021-07-21 22:11 | NUR ---
Nursing Progress Note: Legal hold: 5270 Client on involuntary status for GD Report received from nurse Martinez REYNOLDS with use of SBAR Why are they here: Pt was placed on a 5150 in [facility]. Pt appeared to be disheveled, was hungry, and dehydrated. He is unable to provide a viable plan for food, clothing, or intermediate. Assessment What has happened this shift: Pt is observed mumbling softly to himself in his room. He is polite and cooperative on interview and medication compliant. He asks for coffee often, when reminded he needs to wait until snack time he apologizes and smiles. Before bed he tells RN I hope you have a blessed life, thank you. S/I, H/I: Pt denies. A/VH: Pt denies though appears to be responding to internal stimuli. Sleep: see sleep hours ADL's: Independent Group attendance: No Were meds taken: yes Any med S/E: N/A Mental Status Exam Appearance: disheveled. Eye contact: Fair Behavior: Cooperative, restless Speech: Clear, soft, Mood: Calm Affect: dulled Thought process: Delusional Thought Content: ISRAEL Cognition: A/O X2, oriented to person and place. Insight: Poor Judgment: Poor Interventions PRN's used: None Therapeutic interventions: 1:1 assessment, establishment of rapport, maintained a safe and supportive environment, provided clear and simple instructions, therapeutic communication, active listening, encouragement to attend groups, provided distraction, direction, positive reinforcement, reality orientation, and maintained Q15 minute safety checks. Restraints/seclusion/emergency medication: N/A Justification of Continued Inpatient Treatment: Pt requires a safe and supportive environment, medication adjustment and monitoring, and interruption of current crisis.
[2021-07-22 07:53] VITALS: BP 117/84
[2021-07-22] MEDS: multivitamins, therapeutics tablet PO SCH (08:15)
[2021-07-22] MEDS: OLANZAPINE 5 MG TABLET PO SCH (08:15)
[2021-07-22] MEDS: atorvastatin 20mg tablet PO SCH (08:15)
[2021-07-22] MEDS: propranolol 10mg tablet PO SCH ×3 (08:15→20:29)
[2021-07-22] MEDS: nicotine 21mg patch - 24 hr TD SCH (08:16)
[2021-07-22 12:50] VITALS: BP 141/103
--- NOTE | 2021-07-22 14:37 | NUR ---
Proof of Service Served Jerardo the Citation for conservatorship and the Petition for Appointment of Probate Conservator by [facility]. He stated it is "against the law" and that he has "nothing to do with conservatorship". Faxed the Proof of Service back to [facility] Public Guardian. AGUILAR Cloud
--- NOTE | 2021-07-22 16:49 | NUR ---
Nursing Progress Note: Jerardo Legal hold: 5270 Client on involuntary status for GD Report received from ELLYN Dave with use of SBAR Why they are here: Pt was placed on a 5150 in [facility]. Pt appeared to be disheveled, was hungry, and dehydrated. He is unable to provide a viable plan for food, clothing, or mcc. Assessment What has happened this shift: Patient received awake and walking around the unit at change of shift. He joined for breakfast in the group room, noted eating quietly by himself away from peers. He continues to present as pleasant, withdrawn, and self-isolative. Patient was receptive to 1:1 assessment and scheduled medications. Patient continues to deny all MH symptoms. He denies SI/HI, AH or VH. However, appears to be responding to internal stimuli throughout the day. Patient observed mumbling nonsensical statements under his breath. Patient continues to endorse delusions of being in a witness protection program. He continues to perseverate on discharge. He does not engage in conversation unless directly spoken to. Patient was observed walking throughout the unit, regularly asking for coffee throughout the day. He joined with peers in the community room for all meal/snack times today. S/I, H/I: Denies both. A/VH: Denies, but is responding verbally to internal stimuli. Sleep: No naps noted on this shift. ADL's: Independent Group attendance: No Were meds taken: Yes, without hesitation. Any med S/E: None observed or reported. Mental Status Exam Appearance: Disheveled looking male, looks older than his reported age wearing casual personal clothing. Scruffy holden Eye contact: Poor. Behavior: Cooperative, withdrawn, isolative. Paces hager. Speech: Mumbled, disorganized Mood: Slightly anxious Affect: Constricted Thought process: Delusional, tangential, and disorganized Thought Content: Delusions of being in a witness protection program. Cognition: A&O x3, not to event Insight: Poor Judgment: Poor Interventions PRN's used: None Therapeutic interventions: Maintained a safe and supportive environment, provided clear and simple instructions, therapeutic communication, active listening, medication administration/education/monitoring, encouragement to attend groups, provided distraction, attempted reality orientation, provided positive reinforcement, and maintained Q15 minute safety checks. Restraints/seclusion/emergency medication: N/A Justification of Continued Inpatient Treatment: Pt continues to be gravely disabled, he is unable to formulate a viable plan for food, clothing, and mcc. He came to us from [facility] here on a [place], [facility] is discussing an LPS referral.
[2021-07-22 20:16] VITALS: BP 126/79
[2021-07-22] MEDS: olanzapine 10mg tablet PO SCH (20:29)
--- NOTE | 2021-07-22 22:50 | NUR ---
Nursing Progress Note: Legal hold: 5270 Client on involuntary status for GD Report received from nurse Martinez REYNOLDS with use of SBAR Why are they here: Pt was placed on a 5150 in [facility]. Pt appeared to be disheveled, was hungry, and dehydrated. He is unable to provide a viable plan for food, clothing, or intermediate. Assessment What has happened this shift: Pt is visible on the unit and medication compliant. He is observed mumbling to himself. Pt is pleasant on assessment and cooperative. Pt is calm and doesn't yell out at all during shift.. He denies SI/HI/AH/VH. S/I, H/I: Pt denies. A/VH: Pt denies though appears to be responding to internal stimuli. Sleep: see sleep hours ADL's: Independent Group attendance: No Were meds taken: yes Any med S/E: N/A Mental Status Exam Appearance: Older balding, tanned man with dark hair and scratch hidalgo on his nose dressed in green unit scrubs Eye contact: Fair Behavior: Cooperative, restless, paces the unit and talks to himself. Speech: Clear, soft, Mood: Calm Affect: Mildly guarded. Thought process: Delusional Thought Content: wants to know when he can leave and if he can have a "double portion" of food Cognition: A/O X2, oriented to person and place. Insight: Poor Judgment: Poor Interventions PRN's used: None Therapeutic interventions: 1:1 assessment, establishment of rapport, maintained a safe and supportive environment, provided clear and simple instructions, therapeutic communication, active listening, encouragement to attend groups, provided distraction, direction, positive reinforcement, reality orientation, and maintained Q15 minute safety checks. Restraints/seclusion/emergency medication: N/A Justification of Continued Inpatient Treatment: Pt requires a safe and supportive environment, medication adjustment and monitoring, and interruption of current crisis.
[2021-07-23] MEDS: multivitamins, therapeutics tablet PO SCH (08:10)
[2021-07-23] MEDS: propranolol 10mg tablet PO SCH ×3 (08:10→20:44)
[2021-07-23] MEDS: atorvastatin 20mg tablet PO SCH (08:11)
[2021-07-23] MEDS: nicotine 21mg patch - 24 hr TD SCH (08:13)
[2021-07-23] MEDS: OLANZAPINE 5 MG TABLET PO SCH (08:13)
[2021-07-23 08:28] VITALS: BP 110/83
--- NOTE | 2021-07-23 16:45 | NUR ---
Nursing Progress Note: Jerardo Legal hold: 5270 Client on involuntary status for GD Report received from ELLYN Dave with use of SBAR Why they are here: Pt was placed on a 5150 in [facility]. Pt appeared to be disheveled, was hungry, and dehydrated. He is unable to provide a viable plan for food, clothing, or care home. Assessment What has happened this shift: Patient was asleep at change of shift and up before breakfast. Patient walks up and down the halls and only makes eye contact when he wants coffee or hot chocolate. Patient states he is doing fine. Patient denies hearing voices but does appear to be responding to internal stimuli. Patient stated "I am under surveillance by some film booker. But that doesn't bother me too much." Patient does not make eye contact as he is voicing delusion. Patient is quiet and polite. Patient did not nap this shift. S/I, H/I: Denies both. A/VH: Denies, but is responding verbally to internal stimuli. Sleep: No naps noted on this shift. ADL's: Needs encouragement Group attendance: No Were meds taken: Yes Any med S/E: None observed or reported. Mental Status Exam Appearance: Disheveled looking male, looks older than his reported age wearing casual personal clothing. Scruffy holden Eye contact: Poor. Behavior: Cooperative, withdrawn, isolative. Paces hager. Speech: Mumbles, disorganized Mood: Pleasant, reserved Affect: Flat Thought process: Delusional Thought Content: Patient believes on a "surveillance by some film booker" Cognition: A&O x3, not to event Insight: Poor Judgment: Poor Interventions PRN's used: None Therapeutic interventions: Maintained a safe and supportive environment, provided clear and simple instructions, therapeutic communication, active listening, medication administration/education/monitoring, encouragement to attend groups, provided distraction, attempted reality orientation, provided positive reinforcement, and maintained Q15 minute safety checks. Restraints/seclusion/emergency medication: N/A Justification of Continued Inpatient Treatment: Pt continues to be gravely disabled, he is unable to formulate a viable plan for food, clothing, and care home. He came to us from [facility] here on a [place], [facility] is discussing an LPS referral.
[2021-07-23 19:00] VITALS: BP 150/99
[2021-07-23] MEDS: NICOTINE POLACRILEX 2 MG LOZENGE BC PRN (19:32)
[2021-07-23] MEDS: olanzapine 10mg tablet PO SCH (20:44)
[2021-07-24 07:37] VITALS: BP 121/83
[2021-07-24] MEDS: multivitamins, therapeutics tablet PO SCH (08:39)
[2021-07-24] MEDS: OLANZAPINE 5 MG TABLET PO SCH (08:39)
[2021-07-24] MEDS: propranolol 10mg tablet PO SCH ×3 (08:39→20:28)
[2021-07-24] MEDS: atorvastatin 20mg tablet PO SCH (08:39)
[2021-07-24] MEDS: nicotine 21mg patch - 24 hr TD SCH (08:39)
[2021-07-24 13:24] VITALS: BP 149/95
--- NOTE | 2021-07-24 16:38 | NUR ---
Nursing Progress Note: Jerardo Legal hold: 5270 Client on involuntary status for GD Report received from ELLYN Dave with use of SBAR Why they are here: Pt was placed on a 5150 in [facility]. Pt appeared to be disheveled, was hungry, and dehydrated. He is unable to provide a viable plan for food, clothing, or assisted. Assessment What has happened this shift: Patient observed sleeping in his room at shift change. He joined with peers in the group room for breakfast, noted eating by himself quietly. He was receptive to scheduled medications and continues to present as pleasant, quiet, and cooperative with care. Patient continues to deny all MH symptoms. Patient endorsed that he has never been in the mental health system and doesnt need to be here any longer. He denies SI/HI, AH or VH. However, patient appears to be responding to internal stimuli throughout the shift. Patient observed pacing up and down the hallway talking quietly under his breath, making hand gestures at times. He was receptive to 1:1 assessment, lungs CTA. Patient continues perseverating on discharge, noted endorsing that he is ready to leave. He continues to present as withdrawn and self-isolative. Patient does not engage in conversation unless directly spoken to. Patient noted endorsing nonsensical delusions of medical damage, kidnapping, blacklisting, and non-cartel. Patient endorsed to this health technical writer that he receives a pension from the [employer] and is here for a Witness Protection Program. He was observed walking throughout the unit, keeping to himself the majority of the day. Patient joined with peers in the community room for all meal and snack times. S/I, H/I: Denies both. A/VH: Denies, but is observed responding verbally to internal stimuli. Sleep: Pt slept 9 hours last night per NOC shift. No naps noted on this shift. ADL's: Independent Group attendance: No group provided Were meds taken: Yes, without hesitation. Any med S/E: None observed or reported. Mental Status Exam Appearance: Disheveled looking male, looks older than his reported age wearing casual personal clothing. Scruffy holden. Eye contact: Poor. Behavior: Cooperative, withdrawn, isolative. Paces hager. Speech: Mumbled, disorganized Mood: Pleasant, reserved Affect: Flat Thought process: Delusional and disorganized Thought Content: Perseveration on discharge. Nonsensical delusions of medical damage, kidnapping, blacklisting, and non-cartel. Cognition: A&O x3, not to event Insight: Poor Judgment: Poor Interventions PRN's used: None Therapeutic interventions: Maintained a safe and supportive environment, provided clear and simple instructions, therapeutic communication, active listening, medication administration/education/monitoring, encouragement to attend groups, provided distraction, attempted reality orientation, provided positive reinforcement, and maintained Q15 minute safety checks. Restraints/seclusion/emergency medication: N/A Justification of Continued Inpatient Treatment: Pt continues to be gravely disabled, he is unable to formulate a viable plan for food, clothing, and assisted. He came to us from [facility] here on a Short [place], [facility] is discussing an LPS referral.
[2021-07-24 19:20] VITALS: BP 102/67
[2021-07-24] MEDS: olanzapine 10mg tablet PO SCH (20:31)
[2021-07-24] MEDS: NICOTINE POLACRILEX 2 MG LOZENGE BC PRN (20:33)
--- NOTE | 2021-07-25 04:44 | NUR ---
Nursing Progress Note: Jerardo Legal hold: 5270 Client on involuntary status for GD Report received from GAIL Henriquez with use of SBAR Why they are here: Pt was placed on a 5150 in [facility]. Pt appeared to be disheveled, was hungry, and dehydrated. He is unable to provide a viable plan for food, clothing, or jail. Assessment What has happened this shift: Patient pacing the unit at the beginning of shift. Pleasant and cooperative with care; compliant with medication. Nicotine patch removed/discarded and PRN Nicotine lozenge provided this shift. Patient denies SI, HI, A/VH but appears to be responding to IS. Patient participated in HS snack and continued to pace the unit prior to bed; observed sleeping and does not appear to be having difficulty. S/I, H/I: Denies A/VH: Denies, but appears to be responding to IS Sleep: Refer to sleep assessment ADL's: Independent Group attendance: NA Were meds taken: Yes Any med S/E: None observed or reported Mental Status Exam Appearance: Disheveled, wearing personal clothing Eye contact: Poor Behavior: Pleasant and cooperative, pacing the unit, social Speech: Mumbles Mood: Euthymic Affect: Animated Thought process: Disorganized Thought Content: Meeting needs Cognition: A&O x3, not to event Insight: Poor Judgment: Poor Interventions PRN's used: None Therapeutic interventions: Maintained a safe and supportive environment, provided clear and simple instructions, therapeutic communication, active listening, medication administration/education/monitoring, encouragement to attend groups, provided distraction, attempted reality orientation, provided positive reinforcement, and maintained Q15 minute safety checks. Restraints/seclusion/emergency medication: NA Justification of Continued Inpatient Treatment: Pt continues to be gravely disabled, he is unable to formulate a viable plan for food, clothing, and jail. He came to us from [facility] here on a Short [place], [facility] is discussing an LPS referral.
[2021-07-25] MEDS: atorvastatin 20mg tablet PO SCH (07:54)
[2021-07-25] MEDS: OLANZAPINE 5 MG TABLET PO SCH (07:54)
[2021-07-25] MEDS: multivitamins, therapeutics tablet PO SCH (07:54)
[2021-07-25] MEDS: propranolol 10mg tablet PO SCH ×3 (07:54→20:06)
[2021-07-25] MEDS: nicotine 21mg patch - 24 hr TD SCH (07:55)
[2021-07-25 08:00] VITALS: BP 129/90
[2021-07-25] MEDS: NICOTINE POLACRILEX 2 MG LOZENGE BC PRN (08:59)
[2021-07-25 12:44] VITALS: BP 131/96
--- NOTE | 2021-07-25 17:26 | NUR ---
Nursing Progress Note: Jerardo Legal hold: 5270 Client on involuntary status for GD Report received from GAIL Jimenez with use of SBAR Why they are here: Pt was placed on a 5150 in [facility]. Pt appeared to be disheveled, was hungry, and dehydrated. He is unable to provide a viable plan for food, clothing, or skilled nursing. Assessment What has happened this shift: Patient received sleeping in his room at change of shift. He was receptive to scheduled medications and 1:1 assessment. Patient joined in the group room for breakfast. He continues to presents as pleasant, quiet, and cooperative with care. He continues to endorse fixed delusions of being in a Federal Witness Protection Program. Patient noted also mumbling nonsensical delusions regarding the [place] , the [place], and Veterans [employer]. When asked for patients last name and he endorsed that he doesnt want to say, noted mumbling delusions of being under investigation. Patient endorsed his to this headline writer but would not say his last name. He continues to present as withdrawn and self-isolative. Patient does not engage in conversation unless directly spoken to. He continues to deny all MH symptoms. Patient denies SI/HI, AH or VH, however, appears to be responding to internal stimuli throughout the day. Patient observed pacing up and down the hallway talking quietly under his breath, making hand gestures at times. Patient endorsed to this headline writer that he came here for medical treatment then found out he was here, endorsing that he does not need to be on the MH unit. He was observed walking throughout the unit, keeping to himself the majority of the day. Patient joined with peers in the community room for all meal/ snack times today. S/I, H/I: Denies both. A/VH: Denies, but is observed responding verbally to internal stimuli. Sleep: Pt slept 9 hours last night per NOC shift. No naps noted on this shift. ADL's: Independent Group attendance: No group provided Were meds taken: Yes, without hesitation. Any med S/E: None observed or reported. Mental Status Exam Appearance: Disheveled looking male, looks older than his reported age wearing casual personal clothing. Scruffy holden. Eye contact: Poor. Behavior: Cooperative, withdrawn, isolative. Paces hager. Speech: Mumbled, disorganized Mood: Pleasant, reserved Affect: Flat Thought process: Delusional and disorganized Thought Content: Perseveration on discharge. Fixed delusions of being in a Federal Witness Protection Program. Cognition: A&O x3, not to event Insight: Poor Judgment: Poor Interventions PRN's used: None Therapeutic interventions: Maintained a safe and supportive environment, provided clear and simple instructions, therapeutic communication, active listening, medication administration/education/monitoring, encouragement to attend groups, provided distraction, attempted reality orientation, provided positive reinforcement, and maintained Q15 minute safety checks. Restraints/seclusion/emergency medication: N/A Justification of Continued Inpatient Treatment: Pt continues to be gravely disabled, he is unable to formulate a viable plan for food, clothing, and skilled nursing. He came to us from [facility] here on a [place], [facility] is discussing an LPS referral.
[2021-07-25] MEDS: olanzapine 10mg tablet PO SCH (20:06)
[2021-07-25 20:28] VITALS: BP 125/75
--- NOTE | 2021-07-26 01:45 | NUR ---
Nursing Progress Note: Jerardo Legal hold: 5270 Client on involuntary status for GD Report received from GAIL Henriquez with use of SBAR Why they are here: Pt was placed on a 5150 in [facility]. Pt appeared to be disheveled, was hungry, and dehydrated. He is unable to provide a viable plan for food, clothing, or alf. Assessment What has happened this shift: Patient seen in his room napping at shift change. went back in his room while he was getting his vitals done. Patient is pleasant and thankful when receiving care. He continues to deny all MH symptoms, but can be seen responding to IS when he paces the halls. Patient was up for snack time and HS med pass. He thanked me, sat for a while, then paced the unit until he was tired enough to sleep. S/I, H/I: Denies A/VH: Denies, but appears to be responding to IS Sleep: Refer to sleep assessment ADL's: Independent Group attendance: N/A Were meds taken: Yes Any med S/E: None observed or reported Mental Status Exam Appearance: Disheveled, wearing personal clothing Eye contact: Poor Behavior: Pleasant and cooperative, pacing the unit, social Speech: Mumbles Mood: Euthymic Affect: Animated Thought process: Disorganized Thought Content: Meeting needs Cognition: A&O x3, not to event Insight: Poor Judgment: Poor Interventions PRN's used: None Therapeutic interventions: Maintained a safe and supportive environment, provided clear and simple instructions, therapeutic communication, active listening, medication administration/education/monitoring, encouragement to attend groups, provided distraction, attempted reality orientation, provided positive reinforcement, and maintained Q15 minute safety checks. Restraints/seclusion/emergency medication: NA Justification of Continued Inpatient Treatment: Pt continues to be gravely disabled, he is unable to formulate a viable plan for food, clothing, and alf. He came to us from [facility] here on a [place], [facility] is discussing an LPS referral.
[2021-07-26 07:46] VITALS: BP 129/84
[2021-07-26] MEDS: propranolol 10mg tablet PO SCH ×3 (08:03→20:50)
[2021-07-26] MEDS: OLANZAPINE 5 MG TABLET PO SCH (08:03)
[2021-07-26] MEDS: nicotine 21mg patch - 24 hr TD SCH (08:04)
[2021-07-26] MEDS: multivitamins, therapeutics tablet PO SCH (08:04)
[2021-07-26] MEDS: atorvastatin 20mg tablet PO SCH (08:04)
[2021-07-26] MEDS: NICOTINE POLACRILEX 2 MG LOZENGE BC PRN (10:21)
[2021-07-26 12:28] VITALS: BP 144/102
--- NOTE | 2021-07-26 17:21 | NUR ---
Nursing Progress Note: Jerardo Legal hold: 5270 Client on involuntary status for GD Report received from GAIL Velasquez with use of SBAR Why they are here: Pt was placed on a 5150 in [facility]. Pt appeared to be disheveled, was hungry, and dehydrated. He is unable to provide a viable plan for food, clothing, or senior care. Assessment What has happened this shift: Patient observed sleeping in his bed at shift change. He joined for breakfast in the group room with peers. Patient noted sitting quietly by himself while eating. He continues to present as pleasant, quiet, and cooperative with care. He was receptive to scheduled medications. He continues to present as reserved and isolative. Patient does not engage in conversation unless directly spoken to. He continues to deny all MH symptoms. Patient denies SI/HI, AH or VH, however, appears to be responding to internal stimuli throughout the day. He was receptive to 1:1 assessment, lungs CTA. Patient is observed pacing down the hallway of the unit throughout the shift appearing bored. He is observed mumbling nonsensical statements and gesturing with his hands while walking by himself, appearing to be responding to internal stimuli. Patient encouraged to go outside on the patio with peers today, however, he declined. Patient observed resting on in bed for a short period of time. He was later observed walking around the unit asking for a cup of coffee. Patients vital signs checked later in the day for scheduled medication. Patient noted reassuring this medical technical writer that his elevated blood pressure is not from anxiety or tension or anything. He continues to endorse fixed delusions of being in a [employer] Witness [employer] Program. Patient was observed walking throughout the unit, keeping to himself the majority of the day. He joined for all snacks and meal times in the group room today. S/I, H/I: Denies both. A/VH: Denies, but is observed responding verbally to internal stimuli. Sleep: Pt slept 7.25 hours last night per NOC shift. One hour nap noted on this shift. ADL's: Independent Group attendance: No Were meds taken: Yes, without hesitation. Any med S/E: None observed or reported. Mental Status Exam Appearance: Disheveled looking male, looks older than his reported age wearing casual personal clothing. Scruffy holden. Eye contact: Poor. Behavior: Cooperative, withdrawn, isolative. Kelsy hager. Speech: Mumbled, disorganized Mood: Pleasant, reserved Affect: Flat Thought process: Delusional and disorganized Thought Content: Perseveration on discharge. Fixed delusions of being in a [employer] Witness Protection Program. Cognition: A&O x3, not to event Insight: Poor Judgment: Poor Interventions PRN's used: Nicotine Lozenge Therapeutic interventions: Maintained a safe and supportive environment, provided clear and simple instructions, therapeutic communication, active listening, medication administration/education/monitoring, encouragement to attend groups, provided distraction, attempted reality orientation, provided positive reinforcement, and maintained Q15 minute safety checks. Restraints/seclusion/emergency medication: N/A Justification of Continued Inpatient Treatment: Pt continues to be gravely disabled, he is unable to formulate a viable plan for food, clothing, and senior care. He came to us from [facility] here on a [place], [facility] is discussing an LPS referral.
[2021-07-26 19:00] VITALS: BP 106/68
[2021-07-26] MEDS: olanzapine 10mg tablet PO SCH (20:50)
--- NOTE | 2021-07-27 04:13 | NUR ---
Nursing Progress Note: Jerardo Legal hold: 5270 Client on involuntary status for GD Report received from GAIL Henriquez with use of SBAR Why they are here: Pt was placed on a 5150 in [facility]. Pt appeared to be disheveled, was hungry, and dehydrated. He is unable to provide a viable plan for food, clothing, or group home. Assessment What has happened this shift: Patient awake in his room at the beginning of shift. Pleasant and cooperative with care; compliant with medication. Denies SI, HI, A/VH but observed responding to IS. Patient isolative to room the majority of the shift; participated in HS snack prior to bed. He is observed sleeping and does not appear to be having difficulty. S/I, H/I: Denies A/VH: Denies; observed responding to IS Sleep: Refer to sleep assessment ADL's: Independent Group attendance: NA Were meds taken: Yes Any med S/E: None observed or reported Mental Status Exam Appearance: Appropriately dressed in personal attire Eye contact: Poor Behavior: Pleasant and cooperative, withdrawn, isolative Speech: Mumbled, disorganized Mood: "Good" Affect: Flat Thought process: Disorganized, fixed delusions Thought Content: Meeting needs Cognition: A&O x3, not to event Insight: Poor Judgment: Poor Interventions PRN's used: None Therapeutic interventions: Maintained a safe and supportive environment, provided clear and simple instructions, therapeutic communication, active listening, medication administration/education/monitoring, encouragement to attend groups, provided distraction, attempted reality orientation, provided positive reinforcement, and maintained Q15 minute safety checks. Restraints/seclusion/emergency medication: NA Justification of Continued Inpatient Treatment: Pt continues to be gravely disabled, he is unable to formulate a viable plan for food, clothing, and group home. He came to us from [facility] here on a [place], [facility] is discussing an LPS referral.
--- NOTE | 2021-07-27 07:15 | NUR ---
Reassessment: Pt continues eating well with mostly 100% PO intake on regular diet meeting estimated nutrient needs. ONS has been appropriately discontinued as pt is meeting needs through meals and snacks alone. [facility] 07/25. No nutrition intervention implemented at this time, will continue to monitor. Recommendations: 1. Continue regular diet 2. Bowel care per rx 3. Weekly scaled wts Addendum: 07/27/21 at [address] Amended: Links added.
[2021-07-27] MEDS: atorvastatin 20mg tablet PO SCH (07:19)
[2021-07-27] MEDS: OLANZAPINE 5 MG TABLET PO SCH (07:19)
[2021-07-27] MEDS: multivitamins, therapeutics tablet PO SCH (07:19)
[2021-07-27] MEDS: propranolol 10mg tablet PO SCH ×3 (07:19→20:16)
[2021-07-27 08:27] VITALS: BP_SYST 144; BP_SYST 147; BP_DIAS 110; BP_DIAS 96
--- NOTE | 2021-07-27 08:28 | NUR ---
Took VS twice to make sure accurate reading. Addendum: 07/27/21 at 0830 by Chasidy Chen RN Amended: Links added.
[2021-07-27] MEDS: nicotine 21mg patch - 24 hr TD SCH (09:12)
--- NOTE | 2021-07-27 14:05 | NUR ---
Nursing Progress Note: Jerardo Legal hold: 5270 Client on involuntary status for GD Report received from NOC CHARGE, RN with use of SBAR Why they are here: Pt was placed on a 5150 in [facility]. Pt appeared to be disheveled, was hungry, and dehydrated. He is unable to provide a viable plan for food, clothing, or jail. Assessment What has happened this shift: Patient awake asking for coffee after shift change. Pleasant and cooperative with care; compliant with medication. Patient BP this am was 144/110 taken twice, bp medication given. Denies SI, HI, A/VH but observed responding to IS. Patient in the hager pacing the majority of the shift; participated in AM snack, no group. S/I, H/I: Denies A/VH: Denies; observed responding to IS Sleep: Refer to sleep assessment ADL's: Independent Group attendance: NA Were meds taken: Yes Any med S/E: None observed or reported Mental Status Exam Appearance: Appropriately dressed in personal attire Eye contact: good Behavior: Pleasant and cooperative, withdrawn, isolative Speech: disorganized, word salad Mood: "Good" Affect: Flat Thought process: Disorganized, fixed delusions Thought Content: Meeting needs Cognition: A&O x3, not to event Insight: Poor Judgment: Poor Interventions PRN's used: None Therapeutic interventions: Maintained a safe and supportive environment, provided clear and simple instructions, therapeutic communication, active listening, medication administration/education/monitoring, encouragement to attend groups, provided distraction, attempted reality orientation, provided positive reinforcement, and maintained Q15 minute safety checks. Restraints/seclusion/emergency medication: NA Justification of Continued Inpatient Treatment: Pt continues to be gravely disabled, he is unable to formulate a viable plan for food, clothing, and jail. He came to us from [facility] here on a [place], [facility] is discussing an LPS referral.
[2021-07-27] MEDS: NICOTINE POLACRILEX 2 MG LOZENGE BC PRN ×2 (14:19→18:21)
[2021-07-27 19:43] VITALS: BP 133/86
[2021-07-27] MEDS: olanzapine 10mg tablet PO SCH (20:16)
--- NOTE | 2021-07-28 04:09 | NUR ---
Nursing Progress Note: Legal hold: 5270 Client on involuntary status for GD Report received from GAIL Alegria with use of SBAR Why they are here: Pt was placed on a 5150 in [facility]. Pt appeared to be disheveled, was hungry, and dehydrated. He is unable to provide a viable plan for food, clothing, or mcfp. Assessment What has happened this shift: Patient walking the hager at the beginning of shift. Pleasant and cooperative with care; compliant with medication. Nicotine patch removed. Denies SI, HI, A/VH; continues to respond to IS. Patient reports, "I'm not suffering in mental health." Patient participated in HS snack prior to bed; observed sleeping and does not appear to be having difficulty. S/I, H/I: Denies A/VH: Denies; responding to IS Sleep: Refer to sleep assessment ADL's: Independent Group attendance: NA Were meds taken: Yes Any med S/E: None observed or reported Mental Status Exam Appearance: Appropriately dressed in personal attire Eye contact: Poor Behavior: Pleasant and cooperative, withdrawn, isolative Speech: Mumbled, disorganized Mood: "Good, thank you" Affect: Animated Thought process: Disorganized, fixed delusions Thought Content: Meeting needs Cognition: A&O x3, not to event Insight: Poor Judgment: Poor Interventions PRN's used: None Therapeutic interventions: Maintained a safe and supportive environment, provided clear and simple instructions, therapeutic communication, active listening, medication administration/education/monitoring, encouragement to attend groups, provided distraction, attempted reality orientation, provided positive reinforcement, and maintained Q15 minute safety checks. Restraints/seclusion/emergency medication: NA Justification of Continued Inpatient Treatment: Pt continues to be gravely disabled, he is unable to formulate a viable plan for food, clothing, and mcfp. He came to us from [facility] here on a [place], [facility] is discussing an LPS referral.
[2021-07-28 07:43] VITALS: BP 116/81
[2021-07-28] MEDS: nicotine 21mg patch - 24 hr TD SCH (08:20)
[2021-07-28] MEDS: multivitamins, therapeutics tablet PO SCH (08:20)
[2021-07-28] MEDS: OLANZAPINE 5 MG TABLET PO SCH (08:20)
[2021-07-28] MEDS: atorvastatin 20mg tablet PO SCH (08:20)
[2021-07-28] MEDS: propranolol 10mg tablet PO SCH ×3 (08:22→20:06)
--- NOTE | 2021-07-28 17:02 | NUR ---
Nursing Progress Note Legal hold: 5270 Client on involuntary status for GD Report received from RN with use of SBAR Why are they here: Pt was placed on a 5150 in [facility]. Pt appeared to be disheveled, was hungry, and dehydrated. He is unable to provide a viable plan for food, clothing, or senior living. Assessment What has happened this shift: Received Pt awake in his room w/o distress at the beginning of the shift. Pt woke and was cooperative with vitals and AM assessments. Pt took AM meds w/o issue and ate meals well. Pt very appreciative of his nicotine patch this morning and paced the halls on and off most of the day. Pt is pleasant and cooperative and continues to deny that he is a mental health Pt. He appears anxious at times and speech is disorganized. [facility]. S/I, H/I: Pt denies A/VH: Pt denies, appears to be responding to internal stimuli Sleep: None this shift ADL's: Independent Group attendance: No Were meds taken: Yes Any med S/E: None noted or reported Mental Status Exam Appearance: Casual in own clothes Eye contact: Good Behavior: Pleasant, cooperative, paces Speech: Mumbles, disjointed Mood: Euthymic; mild anxiety Affect: Animated Thought process: Fixed delusions Thought Content: He does not have mental health issues, he needs to [facility] to the [facility] Cognition: A/O X 2 Insight: Poor Judgment: Poor Interventions PRN's used: None Therapeutic interventions: 1:1 assessment, maintained a safe and supportive environment, provided clear and simple instructions, therapeutic communication, active listening, medication administration/education/monitoring, encouragement to attend groups, provided distraction, redirection, attempted reality orientation, provided positive reinforcement, and maintained Q15 minute safety checks. Restraints/seclusion/emergency medication: N/A Justification of Continued Inpatient Treatment: Pt continues to be gravely disabled, he is unable to formulate a viable plan for food, clothing, and senior living. [facility] is discussing an LPS referral.
[2021-07-28 19:52] VITALS: BP 145/79
[2021-07-28] MEDS: olanzapine 10mg tablet PO SCH (20:07)
--- NOTE | 2021-07-29 04:45 | NUR ---
Nursing Progress Note: Legal hold: 5270 Client on involuntary status for GD Report received from GAIL Dillard with use of SBAR Why they are here: Pt was placed on a 5150 in [facility]. Pt appeared to be disheveled, was hungry, and dehydrated. He is unable to provide a viable plan for food, clothing, or long-term. Assessment What has happened this shift: Patient laying awake and observed responding to IS in his room at the beginning of shift. Pleasant and cooperative with care; compliant with medication. Nicotine patch removed. He denies SI, HI, A/VH; continues to report "don't have mental health problems." He participated in HS snack and briefly walked the unit prior to bed; observed sleeping and does not appear to be having difficulty. S/I, H/I: Denies A/VH: Denies; responding to IS Sleep: Refer to sleep assessment ADL's: Independent Group attendance: NA Were meds taken: Yes Any med S/E: None observed or reported Mental Status Exam Appearance: Appropriately dressed in personal attire Eye contact: Poor Behavior: Pleasant and cooperative, withdrawn, isolative Speech: Mumbled, disorganized Mood: "Good" Affect: Animated Thought process: Disorganized, fixed delusions Thought Content: Meeting needs Cognition: A&O x3, not to event Insight: Poor Judgment: Poor Interventions PRN's used: None Therapeutic interventions: Maintained a safe and supportive environment, provided clear and simple instructions, therapeutic communication, active listening, medication administration/education/monitoring, encouragement to attend groups, provided distraction, attempted reality orientation, provided positive reinforcement, and maintained Q15 minute safety checks. Restraints/seclusion/emergency medication: NA Justification of Continued Inpatient Treatment: Pt continues to be gravely disabled, he is unable to formulate a viable plan for food, clothing, and long-term. He came to us from [facility] here on a [place], [facility] is discussing an LPS referral.
[2021-07-29 08:00] VITALS: BP 116/73
[2021-07-29] MEDS: OLANZAPINE 5 MG TABLET PO SCH ×2 (08:24→12:08)
[2021-07-29] MEDS: propranolol 10mg tablet PO SCH ×3 (08:24→20:38)
[2021-07-29] MEDS: nicotine 21mg patch - 24 hr TD SCH (08:24)
[2021-07-29] MEDS: atorvastatin 20mg tablet PO SCH (08:24)
[2021-07-29] MEDS: multivitamins, therapeutics tablet PO SCH (08:24)
[2021-07-29] MEDS: NICOTINE POLACRILEX 2 MG LOZENGE BC PRN ×3 (10:46→23:26)
[2021-07-29 12:04] VITALS: BP 141/96
--- NOTE | 2021-07-29 14:40 | NUR ---
Nursing Progress Note: Legal hold: 5270 Client on involuntary status for GD Report received from nurse with use of SBAR: GAIL Patten Why are they here: Pt was placed on a 5150 in [facility]. Pt appeared to be disheveled, was hungry, and dehydrated. He is unable to provide a viable plan for food, clothing, or skilled nursing. Assessment What has happened this shift: Received pt. sleeping in bed at the beginning of the shift, he awoke and required direction from staff to attend breakfast in the Group Room. Afterwards, pt. approached this policy writer sales requesting his ordered Nicotine Patch and 1:1 was completed. Pt. presents as cooperative, restless, slightly irritable, and guarded. He is A&O X1-2, reporting two different dates and the year as 2022. Pt. perseverates on his desire to discharge throughout the assessment and is slightly irritable regarding this. When questioned where he will go, pt. reports the [facility]. He repeatedly states, "I don't have mental health." Pt. exhibits some latency of speech and he stutters frequently making him difficult to understand. Also, his eye contact is poor, and pt. is unable to maintain consistent eye contact r/t restlessness. Pt denies all MH s/s, however continues to make occasional delusional statements regarding his belief that he is in the "Federal Witness Protection Program." Pt's thought process is disorganized and tangental, however he is able to make his needs known. Pt. remains up throughout the day and is observed to be frequently pacing while responding to internal stimuli AEB mumbling and gesturing with his hands. S/I, H/I: Denies A/VH: Denies, however pt. is observed to be responding to internal stimuli throughout the day AEB mumbling and gesturing with his hands Sleep: Sleep hours are 8.5 ADL's: Pt. requires direction and encouragement Group attendance: No, despite encouragement from staff Were meds taken: Yes Any med S/E: None Mental Status Exam Appearance: Hair and clothing are slightly disheveled, pt. is encouraged to shower Eye contact: Poor, pt. is unable to maintain consistent eye contact r/t restlessness Behavior: Cooperative, restless, slightly irritable, and guarded Speech: Pt. stutters frequently making him difficult to understand. He also exhibits some latency of speech Mood: Restless and guarded Affect: Blunted Thought process: Tangental and disorganized Thought Content: Perseveration on desire to discharge, and ongoing delusions and A/MALIK Cognition: A&O X1-2 Insight: Poor Judgment: Poor Interventions PRN's used: Nicotine Lozenges Therapeutic interventions: Maintained a safe and supportive environment, ensured contract for safety, provided clear and simple instructions, attempted to orient to reality, encouraged participation on the unit and provided needed direction and encouragement to perform ADLs, and maintained Q 15min safety checks. Restraints/seclusion/emergency medication: N/A Justification of Continued Inpatient Treatment: FINA Hartman, pt. continues to require a safe and supportive environment and medication adjustments. He has an upcoming court date for conservatorship.
--- NOTE | 2021-07-29 15:13 | NUR ---
Sent notes 07/26-07/28 to [facility] for review. AGUILAR Cloud
[2021-07-29 19:44] VITALS: BP 129/83
[2021-07-29] MEDS: olanzapine 10mg tablet PO SCH (20:37)
--- NOTE | 2021-07-30 00:53 | NUR ---
Nursing Progress Note: Legal hold: 5270 Client on involuntary status for GD Report received from nurse Gilma REYNOLDS with use of SBAR Why are they here: Pt was placed on a 5150 in [facility]. Pt appeared to be disheveled, was hungry, and dehydrated. He is unable to provide a viable plan for food, clothing, or fpc. Assessment What has happened this shift: Pt is visible on the unit and medication compliant. He is observed mumbling to himself. Pt is pleasant on assessment and cooperative. Pt asks for coffee and nicotine lozenges often. He denies SI/HI/AH/VH. S/I, H/I: Pt denies. A/VH: Pt denies Sleep: see sleep hours ADL's: Independent Group attendance: No Were meds taken: yes Any med S/E: N/A Mental Status Exam Appearance: WNL Eye contact: Fair Behavior: Cooperative Speech: Clear, soft Mood: Calm Affect: bland Thought process: [place] Thought Content: coffee Cognition: A/O X2, oriented to person and place. Insight: Poor Judgment: Poor Interventions PRN's used: Nicotine lozenges Therapeutic interventions: 1:1 assessment, establishment of rapport, maintained a safe and supportive environment, provided clear and simple instructions, therapeutic communication, active listening, encouragement to attend groups, provided distraction, direction, positive reinforcement, reality orientation, and maintained Q15 minute safety checks. Restraints/seclusion/emergency medication: N/A Justification of Continued Inpatient Treatment: Pt requires a safe and supportive environment, medication adjustment and monitoring, and interruption of current crisis.
[2021-07-30 07:10] VITALS: BP 123/87
[2021-07-30] MEDS: multivitamins, therapeutics tablet PO SCH (08:09)
[2021-07-30] MEDS: propranolol 10mg tablet PO SCH ×3 (08:09→20:15)
[2021-07-30] MEDS: atorvastatin 20mg tablet PO SCH (08:09)
[2021-07-30] MEDS: OLANZAPINE 5 MG TABLET PO SCH ×2 (08:10→13:14)
[2021-07-30] MEDS: nicotine 21mg patch - 24 hr TD SCH (08:10)
--- NOTE | 2021-07-30 12:14 | NUR ---
Nursing Progress Note: Legal hold: 5270 Client on involuntary status for GD Report received from nurse with use of SBAR: Karina Kaufman RN Why are they here: Pt was placed on a 5150 in [facility]. Pt appeared to be disheveled, was hungry, and dehydrated. He is unable to provide a viable plan for food, clothing, or longterm. Assessment What has happened this shift: Received pt. sleeping in bed at the beginning of the shift, he awoke and required direction from staff to attend breakfast in the Group Room. Afterwards, pt. again approached this software writer requesting his Nicotine Patch, and other scheduled medications were administered. Pt. states in a fixed delusional manner, "This is my witness protection medication." He continues to deny all other MH s/s, however again appears to be internally preoccupied AEB observed to be mumbling and gesturing to himself at times. Pt. continues to exhibit some latency of speech and he stutters frequently making him difficult to understand. His thought process remains disorganized and tangental and today he talks about how he plans to go get medical treatment after he leaves this facility. Pt. states, "It's medical issues, not mental health." This software writer provided education to pt. regarding the fact that he is in a hospital now and is able to receive treatment for medical issues here. Pt. appeared to become increasingly restless. When questioned regarding what medical issues he needed treated, pt. walked away from this software writer down the hager mumbling to himself. Pt. did not exhibit any episodes of irritability this shift, and was able to shower independently with encouragement and set-up only. He reluctantly let staff wash his clothing and perseverated anxiously about getting them back, walking around with a blanket on his head while waiting. Pt. naps intermittently during the day and is again observed to be frequently pacing while responding to internal stimuli AEB mumbling and gesturing with his hands. S/I, H/I: Denies A/VH: Denies, however pt. is observed to be responding to internal stimuli throughout the day AEB mumbling and gesturing with his hands Sleep: Sleep hours are 8, and pt. naps intermittently during the shift ADL's: Pt. requires direction and encouragement Group attendance: No, despite encouragement from staff Were meds taken: Yes Any med S/E: None Mental Status Exam Appearance: Hair and clothing are remain disheveled, pt. did shower with encouragement Eye contact: Poor, pt. is unable to maintain consistent eye contact r/t restlessness Behavior: Cooperative, restless, guarded, and withdrawn Speech: Pt. stutters frequently making him difficult to understand. He also exhibits some latency of speech Mood: Restless and guarded Affect: Blunted Thought process: Tangental and disorganized Thought Content: Perseveration on desire to discharge, and ongoing delusions and A/MALIK Cognition: A&O X1-2 Insight: Poor Judgment: Poor Interventions PRN's used: Nicotine Lozenges Therapeutic interventions: Maintained a safe and supportive environment, ensured contract for safety, provided clear and simple instructions, attempted to orient to reality, encouraged participation on the unit and provided needed direction and encouragement to perform ADLs, and maintained Q 15min safety checks. Restraints/seclusion/emergency medication: N/A Justification of Continued Inpatient Treatment: Per Dr. Romero, pt. continues to require a safe and supportive environment r/t persistent mental illness and continues to be GD. He has an upcoming court date for conservatorship.
[2021-07-30 13:13] VITALS: BP 123/83
[2021-07-30 19:00] VITALS: BP 130/80
[2021-07-30] MEDS: LORazepam 1 MG tablet PO PRN (20:14)
[2021-07-30] MEDS: olanzapine 10mg tablet PO SCH (20:14)
--- NOTE | 2021-07-31 00:30 | NUR ---
Nursing Progress Note: Legal hold: 5270 Client on involuntary status for GD Report received from GAIL Dillard with use of SBAR Why they are here: Pt was placed on a 5150 in [facility]. Pt appeared to be disheveled, was hungry, and dehydrated. He is unable to provide a viable plan for food, clothing, or skilled nursing. Assessment What has happened this shift: Patient laying in bed at the beginning of shift. Pleasant and cooperative with care; compliant with medication. PRN Ativan provided this shift. Denies SI, HI, A/VH; continues to respond to IS. Patient up for HS snack and promptly returned to bed; observed sleeping and does not appear to be having difficulty. S/I, H/I: Denies A/VH: Denies; responding to IS Sleep: Refer to sleep assessment ADL's: Independent Group attendance: NA Were meds taken: Yes Any med S/E: None observed or reported Mental Status Exam Appearance: Appropriately dressed in personal attire Eye contact: Poor Behavior: Pleasant and cooperative, withdrawn, isolative Speech: Mumbled, disorganized Mood: "Good" Affect: Constricted Thought process: Disorganized, fixed delusions Thought Content: Meeting needs Cognition: A&O x3, not to event Insight: Poor Judgment: Poor Interventions PRN's used: Ativan Therapeutic interventions: Maintained a safe and supportive environment, provided clear and simple instructions, therapeutic communication, active listening, medication administration/education/monitoring, encouragement to attend groups, provided distraction, attempted reality orientation, provided positive reinforcement, and maintained Q15 minute safety checks. Restraints/seclusion/emergency medication: NA Justification of Continued Inpatient Treatment: Pt continues to be gravely disabled, he is unable to formulate a viable plan for food, clothing, and skilled nursing. He came to us from [facility] here on a Short [place], [facility] is discussing an LPS referral.
[2021-07-31 08:00] VITALS: BP 135/81
[2021-07-31] MEDS: propranolol 10mg tablet PO SCH ×3 (08:00→20:09)
[2021-07-31] MEDS: multivitamins, therapeutics tablet PO SCH (08:26)
[2021-07-31] MEDS: atorvastatin 20mg tablet PO SCH (08:26)
[2021-07-31] MEDS: OLANZAPINE 5 MG TABLET PO SCH ×2 (08:26→13:05)
[2021-07-31] MEDS: nicotine 21mg patch - 24 hr TD SCH (08:27)
[2021-07-31] MEDS: NICOTINE POLACRILEX 2 MG LOZENGE BC PRN ×2 (13:14→16:03)
--- NOTE | 2021-07-31 16:47 | NUR ---
Nursing Progress Note: Legal hold: 5270 Client on involuntary status for GD Report received from GAIL Dugan, with use of SBAR Why they are here: Pt was placed on a 5150 in [facility]. Pt appeared to be disheveled, was hungry, and dehydrated. He is unable to provide a viable plan for food, clothing, or senior living. Assessment What has happened this shift: Received patient while he was lying in bed and sleeping. Patient woke up at approximately 0745 and went to the hallway and asked for A cup of coffee, Please. Patient pleasant and states I slept real well. Introduced self and patient went to the Community Room for breakfast. Patient ate then medications were administered and 1:1 Patient Assessment and Interview completed in patients room. Patient ambulated in hallway throughout the day. Did not appear anxious during this shift. Pleasant and talking to other peers. Participated in snack times x2 during this shift. S/I, H/I: Denies A/VH: Responding to Internal Stimuli Sleep: 7 hours ADL's: Independent Group attendance: No Group Meeting Held on the Weekends. Were meds taken: Yes, without hesitation. (Held 0800 Inderal as HR was 52 bpm.) Any med S/E: None observed or reported Mental Status Exam Appearance: Small stature middle aged man with bald head and dressed in personal gastelum sweatshirt and jeans. Eye contact: Poor, looks down at floor instead up at face. Behavior: Pleasant and cooperative. Speech: Mumbled, disorganized @ times. Mood: I slept real well. Affect: Matter of Fact Thought process: Disorganized Thought Content: Meeting needs Cognition: A&O x3 Insight: Poor Judgment: Poor Interventions PRN's used: Nicotine Lozenge Therapeutic interventions: Maintained a safe and supportive environment, provided clear and simple instructions, therapeutic communication, active listening, medication administration/education/monitoring, encouragement to attend groups, provided distraction, attempted reality orientation, provided positive reinforcement, and maintained Q15 minute safety checks. Restraints/seclusion/emergency medication: NA Justification of Continued Inpatient Treatment: Pt continues to be gravely disabled, he is unable to formulate a viable plan for food, clothing, and senior living. He came to us from [facility] here on a Short [place], [facility] is discussing an LPS referral.
[2021-07-31 19:48] VITALS: BP 100/58
[2021-07-31] MEDS: olanzapine 10mg tablet PO SCH (20:09)
--- NOTE | 2021-08-01 01:42 | NUR ---
Nursing Progress Note: Legal hold: 5270 Client on involuntary status for GD Report received from GAIL Dillard, with use of SBAR Why they are here: Pt was placed on a 5150 in [facility]. Pt appeared to be disheveled, was hungry, and dehydrated. He is unable to provide a viable plan for food, clothing, or longterm. Assessment What has happened this shift: Pt in room at start of shift. Pleasant and cooperative denied Mental Health symptoms. Not observed responding to internal stimuli. Pt mumbles unable to state any plan for discharge. Up to group room for snack. Took medications without any difficulty. S/I, H/I: Denies A/VH: Denies Sleep: Asleep at this time ADL's: Independent Group attendance: NA Were meds taken: Yes, without hesitation. Any med S/E: None observed or reported Mental Status Exam Appearance: Small stature middle aged man with bald head and dressed in personal gastelum sweatshirt and jeans. Eye contact: Poor, looks down at floor instead up at face. Behavior: Pleasant and cooperative. Speech: Mumbled, disorganized @ times. Mood: OK Affect: Pleasant Thought process: Disorganized Thought Content: Meeting needs Cognition: A&O x3 Insight: Poor Judgment: Poor Interventions PRN's used: None Therapeutic interventions: Maintained a safe and supportive environment, provided clear and simple instructions, therapeutic communication, active listening, medication administration/education/monitoring, encouragement to attend groups, provided distraction, attempted reality orientation, provided positive reinforcement, and maintained Q15 minute safety checks. Restraints/seclusion/emergency medication: NA Justification of Continued Inpatient Treatment: Pt continues to be gravely disabled, he is unable to formulate a viable plan for food, clothing, and longterm. He came to us from [facility] here on a Short [place], [facility] is discussing an LPS referral.
[2021-08-01 08:00] VITALS: BP 176/101
[2021-08-01] MEDS: atorvastatin 20mg tablet PO SCH (08:00)
[2021-08-01] MEDS: propranolol 10mg tablet PO SCH ×3 (08:00→20:17)
[2021-08-01] MEDS: multivitamins, therapeutics tablet PO SCH (08:00)
[2021-08-01 08:01] VITALS: BP 197/126
[2021-08-01] MEDS: OLANZAPINE 5 MG TABLET PO SCH ×2 (08:01→13:55)
[2021-08-01] MEDS: nicotine 21mg patch - 24 hr TD SCH (08:01)
[2021-08-01] MEDS: NICOTINE POLACRILEX 2 MG LOZENGE BC PRN ×4 (10:14→20:21)
--- NOTE | 2021-08-01 14:57 | NUR ---
Jerardo attended court for T-Con today. He has court again on 08/29/21. The retail office manager signed the T-Con. AGUILAR Cloud
--- NOTE | 2021-08-01 17:15 | NUR ---
Nursing Progress Note: Legal hold: 5270 Client on involuntary status for GD Report received from GAIL Gill, with use of SBAR Why they are here: Pt was placed on a 5150 in [facility]. Pt appeared to be disheveled, was hungry, and dehydrated. He is unable to provide a viable plan for food, clothing, or assisted. Assessment What has happened this shift: Received patient while he walking in the hallway back and forth. Asked patient if he was experiencing anxiety at this time. Patient stated No, Im just walking because I like to walk. Patient was delivered breakfast to eat in his room d/t COVID Precautions. Appetite good. Patients BP was 176/101 & 177/126. Heart rate was 54. Spoke with Gilma and held 0800 dose of Inderal. Patient ate his lunch in his room and requested multiple cups of coffee throughout the day. S/I, H/I: Denies A/VH: Responding to Internal Stimuli Sleep: 7 hours ADL's: Independent Group attendance: No Group Meeting Held. Were meds taken: Yes, without hesitation. (Held 0800 Inderal as HR was 52 bpm.) Any med S/E: None observed or reported Mental Status Exam Appearance: Small stature middle aged man with bald head and dressed in personal gastelum sweatshirt and jeans. Eye contact: Poor, looks down at floor instead up at face. Behavior: Pleasant and cooperative. Speech: Mumbled, disorganized @ times. Mood: Doing okay. Affect: Matter of Fact Thought process: Meeting own needs Thought Content: Meeting own needs Cognition: A&O x3 Insight: Poor Judgment: Poor Interventions PRN's used: Nicotine Lozenge Therapeutic interventions: Maintained a safe and supportive environment, provided clear and simple instructions, therapeutic communication, active listening, medication administration/education/monitoring, encouragement to attend groups, provided distraction, attempted reality orientation, provided positive reinforcement, and maintained Q15 minute safety checks. Restraints/seclusion/emergency medication: NA Justification of Continued Inpatient Treatment: Pt continues to be gravely disabled, he is unable to formulate a viable plan for food, clothing, and assisted. He came to us from [facility] here on a Short [place], [facility] is discussing an LPS referral.
[2021-08-01] MEDS: olanzapine 10mg tablet PO SCH (20:17)
[2021-08-01 20:34] VITALS: BP 128/83
--- NOTE | 2021-08-01 23:32 | NUR ---
Nursing Progress Note: Legal hold: 5270 Client on involuntary status for GD Report received from GAIL Dillard with use of SBAR Why they are here: Pt was placed on a 5150 in [facility]. Pt appeared to be disheveled, was hungry, and dehydrated. He is unable to provide a viable plan for food, clothing, or alf. Assessment What has happened this shift: Patient seen at bedside for 1:1 assessment. He's cheerful and pleasant tonight. Patient reports that he feels good today, but is tired and wants to relax. He continues to deny all MH symptoms, but is known to respond to IS. He came out shortly for a snack, and was compliant with HS medications, before retiring back to his room. Patient's T-con was signed today. S/I, H/I: Denies A/VH: Denies; Responding to IS Sleep: Refer to sleep assessment ADL's: Independent Group attendance: NA Were meds taken: Yes Any med S/E: None observed or reported Mental Status Exam Appearance: Appropriately dressed in personal attire Eye contact: Poor Behavior: Pleasant and cooperative, withdrawn, isolative Speech: Mumbled, disorganized Mood: "Good" Affect: Constricted Thought process: Disorganized, fixed delusions Thought Content: Meeting needs Cognition: A&O x3, not to event Insight: Poor Judgment: Poor Interventions PRN's used: Therapeutic interventions: Maintained a safe and supportive environment, provided clear and simple instructions, therapeutic communication, active listening, medication administration/education/monitoring, encouragement to attend groups, provided distraction, attempted reality orientation, provided positive reinforcement, and maintained Q15 minute safety checks. Restraints/seclusion/emergency medication: NA Justification of Continued Inpatient Treatment: Pt continues to be gravely disabled, he is unable to formulate a viable plan for food, clothing, and alf. He came to us from [facility] here on a Short [place]. Patient is now T-con.
[2021-08-02 07:55] VITALS: BP 112/76
[2021-08-02] MEDS: propranolol 10mg tablet PO SCH ×2 (08:00→20:09)
[2021-08-02] MEDS: OLANZAPINE 5 MG TABLET PO SCH ×2 (08:00→13:09)
[2021-08-02] MEDS: multivitamins, therapeutics tablet PO SCH (08:00)
[2021-08-02] MEDS: atorvastatin 20mg tablet PO SCH (08:00)
[2021-08-02] MEDS: nicotine 21mg patch - 24 hr TD SCH (08:01)
[2021-08-02] MEDS: NICOTINE POLACRILEX 2 MG LOZENGE BC PRN ×2 (13:11→20:11)
--- NOTE | 2021-08-02 14:44 | NUR ---
CEDRIC Zeng from [facility] called requesting notes, labs & MAR. Sent notes dated 07/27-08/01 to [facility] to facilitate pt's access to placement services. Shell Joya LCSW Addendum: 08/02/21 at 1445 by Shell Joya SS Amended: Links added.
--- NOTE | 2021-08-02 16:08 | NUR ---
Nursing Progress Note: Legal hold: 5270 Client on involuntary status for GD Report received from GAIL Gill, with use of SBAR Why they are here: Pt was placed on a 5150 in [facility]. Pt appeared to be disheveled, was hungry, and dehydrated. He is unable to provide a viable plan for food, clothing, or correction. Assessment What has happened this shift: Patient was asleep at change of shift and up before breakfast. Patient often walks the halls and often asks for coffee. Patient is pleasant and did not discuss his T-Con status though RN heard patient was very unhappy about the outcome. Patient is delusional AEB he spoke about him being in the witness protection program. RN just listened as patient spoke. Patient denies suicidal/homicidal ideation. Patient denies audio/visual hallucinations. Patient is polite and smiles when RN speaks to him. S/I, H/I: Denies A/VH: Denies Sleep: laid down a few times during the day ADL's: Independent, patient took a shower today Group attendance: No Groups today due to Covid Were meds taken: Yes Any med S/E: None observed or reported Mental Status Exam Appearance: Small stature middle aged bald man wearing clean green scrubs. Eye contact: Good, but patient appears shy Behavior: Pleasant and cooperative. Speech: Soft spoken Mood: Euthymic Affect: pleasant Thought process: delusional (witness protection program) Thought Content: Wanting coffee and [place] Miss Cognition: A&O x3 Insight: Poor Judgment: Poor Interventions PRN's used: Nicotine Lozenge X 1 Therapeutic interventions: Maintained a safe and supportive environment, provided clear and simple instructions, therapeutic communication, active listening, medication administration/education/monitoring, encouragement to attend groups, provided distraction, attempted reality orientation, provided positive reinforcement, and maintained Q15 minute safety checks. Restraints/seclusion/emergency medication: NA Justification of Continued Inpatient Treatment: Pt continues to be gravely disabled, he is unable to formulate a viable plan for food, clothing, and correction. He came to us from [facility] here on a Short [place], [facility] is discussing an LPS referral.
[2021-08-02 19:10] VITALS: BP 127/88
[2021-08-02] MEDS: olanzapine 10mg tablet PO SCH (20:09)
--- NOTE | 2021-08-03 01:24 | NUR ---
Nursing Progress Note Legal hold: T-CON Report received from Nanci Dillard pharmacist in charge owner Why are they here: Pt was placed on a 5150 in [facility]. Pt appeared to be disheveled, was hungry, and dehydrated. He is unable to provide a viable plan for food, clothing, or snf. Assessment What has happened this shift: The patient has spent the majority of the evening in his room. He was pleasant when approached for the evening assessment. When asked how his day was he replied that "I'm not suffering any psychological troubles" He denies having a mental illness but he takes his medications as prescribed. He has not required any redirection from staff. He appeared disheveled but clean. He continues to make delusional statements about being part of the witness protection program. When asked what his discharge plan was he stated, "I'm going [place] the [place] for medical treatment for the witness protection program...I'm retired from the [employer] " He believes that if discharged he is going to have an income from the [employer]. He denies having anxiety or feeling depressed. He denies thoughts to harm himself or others. His insight and judgement are poor. He is on a T-Con and he remains delusional and is unable to formulate a realistic plan for food, snf or clothing. He will remain on the unit until an appropriate placement can be found for him.
--- NOTE | 2021-08-03 06:57 | NUR ---
SANDY Received Sandy paperwork and letters from [facility]. Jerardo has court again on 08/29/21 via [employer]. AGUILAR Cloud Addendum: 08/03/21 at 0700 by Ju LR Placed paperwork in patient's chart and provided him a copy.
[2021-08-03 08:00] VITALS: BP 125/84
[2021-08-03] MEDS: NICOTINE POLACRILEX 2 MG LOZENGE BC PRN ×3 (08:13→20:03)
[2021-08-03] MEDS: atorvastatin 20mg tablet PO SCH (08:13)
[2021-08-03] MEDS: OLANZAPINE 5 MG TABLET PO SCH ×2 (08:14→12:34)
[2021-08-03] MEDS: LORazepam 1 MG tablet PO PRN ×2 (08:14→08:17)
[2021-08-03] MEDS: propranolol 10mg tablet PO SCH ×2 (08:14→20:03)
[2021-08-03] MEDS: nicotine 21mg patch - 24 hr TD SCH (08:15)
[2021-08-03] MEDS: multivitamins, therapeutics tablet PO SCH (08:15)
--- NOTE | 2021-08-03 14:37 | NUR ---
Sent H&P to [facility] as [facility] is asking for additional records for placement. AGUILAR Cloud
--- NOTE | 2021-08-03 15:38 | NUR ---
Nursing Progress Note: Legal hold: TCon Client on involuntary status for GD Report received from ELLYN Velasquez, with use of SBAR Why they are here: Pt was placed on a 5150 in [facility]. Pt appeared to be disheveled, was hungry, and dehydrated. He is unable to provide a viable plan for food, clothing, or snf. Assessment What has happened this shift: Patient was asleep at change of shift and up soon after. Patient makes eye contact with RN and then looks down. Patient appears shy. RN got patient a coffee with [place] Miss and chatting with him. RN asked him how he felt about [place] attempting [place]. Patient stated he doesn't like it. 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 He doesn't want to go there. RN explained to patient that the places are similar to where he is now but he gets to go outside more often. Patient was skeptical. And said "they are only going to give me $20 a month spending money. I don't want to go." Patient is always polite and soft spoken. S/I, H/I: Denies A/VH: Denies Sleep: laid down a few times during the day ADL's: Independent Group attendance: No Groups today due to Covid Were meds taken: Yes Any med S/E: None observed or reported Mental Status Exam Appearance: Small stature middle aged bald man wearing his own clothes Eye contact: Good, but patient appears shy Behavior: Pleasant and cooperative. Speech: Soft spoken Mood: Euthymic Affect: pleasant Thought process: delusional ([place]) Thought Content: Wanting coffee and [place] Miss Cognition: A&O x3 Insight: Poor Judgment: Poor Interventions PRN's used: Nicotine Lozenge X 1 Therapeutic interventions: Maintained a safe and supportive environment, provided clear and simple instructions, therapeutic communication, active listening, medication administration/education/monitoring, encouragement to attend groups, provided distraction, attempted reality orientation, provided positive reinforcement, and maintained Q15 minute safety checks. Restraints/seclusion/emergency medication: NA Justification of Continued Inpatient Treatment: Pt continues to be gravely disabled, he is unable to formulate a viable plan for food, clothing, and snf. He came to us from [facility] here on a Short [place], [facility] is discussing an LPS referral.
[2021-08-03 19:37] VITALS: BP 136/66
[2021-08-03] MEDS: olanzapine 10mg tablet PO SCH (20:03)
--- NOTE | 2021-08-03 23:54 | NUR ---
Nursing Progress Note Legal hold: T-CON Report received from Nanci Henriquez computer systems technician Why are they here: Pt was placed on a 5150 in [facility]. Pt appeared to be disheveled, was hungry, and dehydrated. He is unable to provide a viable plan for food, clothing, or jail. Assessment What has happened this shift: The patient was periodically up out of his room. One to one with the patient to assess severity of thought disorder. The patient appeared relaxed and he was cooperative with the assessment. He appeared clean and was appropriately dressed. He stated that he felt "lethargic. I need to eat more vitamins and more orange juice" He stated that "They are trying to put me on conservatorship. 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 He continues to make references about the witness protection program. His insight and judgement are poor. He is disorganized in this thoughts. He has been medication compliant. Justification of Continued Inpatient Treatment: The patient is unable to verbalize a realistic plan for food, jail or clothing. He is on a T-Con and will remain on the inpatient unit until a suitable skilled nursing placement can be found for him.
--- NOTE | 2021-08-04 07:14 | NUR ---
Reassessment: Pt continues eating well with mostly 100% PO intake on regular diet meeting estimated nutrient needs. [facility] 08/03. No nutrition intervention implemented at this time, will continue to monitor. Recommendations: 1. Continue regular diet 2. Bowel care per rx 3. Weekly scaled wts Addendum: 08/04/21 at [address] Amended: Links added.
[2021-08-04 07:37] VITALS: BP 129/73
[2021-08-04] MEDS: propranolol 10mg tablet PO SCH ×2 (08:24→19:55)
[2021-08-04] MEDS: OLANZAPINE 5 MG TABLET PO SCH ×2 (08:24→12:43)
[2021-08-04] MEDS: nicotine 21mg patch - 24 hr TD SCH (08:25)
[2021-08-04] MEDS: multivitamins, therapeutics tablet PO SCH (08:25)
[2021-08-04] MEDS: atorvastatin 20mg tablet PO SCH (08:25)
[2021-08-04] MEDS: NICOTINE POLACRILEX 2 MG LOZENGE BC PRN ×4 (08:27→20:41)
--- NOTE | 2021-08-04 12:18 | NUR ---
PLACEMENT UPDATE Jerardo has been accepted at [facility]. He is #4 on the wait-list. Boyd is seeking placement at other facilities as well. AGUILAR Cloud
--- NOTE | 2021-08-04 16:27 | NUR ---
Nursing Progress Note: Legal hold: TCon Client on involuntary status for GD Report received from ELLYN Velasquez, with use of SBAR Why they are here: Pt was placed on a 5150 in [facility]. Pt appeared to be disheveled, was hungry, and dehydrated. He is unable to provide a viable plan for food, clothing, or longterm. Assessment What has happened this shift: Patient was asleep at change of shift and up soon after. Patient makes eye contact with RN and then again looks down. RN got patient a coffee with Lao Miss and chatting with him. Patient is very polite. Patient asked RN for her shoes which ended up being boots with laces. RN found a pair of 10.5 running shoes in the closet along with a clean pair of socks. Patient thanked RN and wore the shoes for just a little while and then was back wearing his dirty green socks. Patient insists to RN that he likes them he just didn't want to wear them. Patient is always polite and soft spoken. No delusional statements made today. Patient was accepted at [facility] and is 4th on the list. S/I, H/I: Denies A/VH: Denies Sleep: laid down a few times during the day ADL's: Independent Group attendance: No Groups today due to Covid Were meds taken: Yes Any med S/E: None observed or reported Mental Status Exam Appearance: Small stature middle aged bald man wearing his own clothes Eye contact: Good, but patient appears shy Behavior: Pleasant and cooperative. Speech: Soft spoken Mood: Euthymic Affect: pleasant Thought process: Linear Thought Content: wanting needs met Cognition: A&O x3 Insight: Poor Judgment: Poor Interventions PRN's used: Nicotine Lozenges Therapeutic interventions: Maintained a safe and supportive environment, provided clear and simple instructions, therapeutic communication, active listening, medication administration/education/monitoring, encouragement to attend groups, provided distraction, attempted reality orientation, provided positive reinforcement, and maintained Q15 minute safety checks. Restraints/seclusion/emergency medication: NA Justification of Continued Inpatient Treatment: Pt continues to be gravely disabled, he is unable to formulate a viable plan for food, clothing, and longterm. He came to us from [facility] here on a [place], [facility] is discussing an LPS referral.
[2021-08-04 19:41] VITALS: BP 133/83
[2021-08-04] MEDS: olanzapine 10mg tablet PO SCH (19:56)
--- NOTE | 2021-08-05 04:13 | NUR ---
Nursing Progress Note: Legal hold: TCon Client on involuntary status for GD Report received from GAIL Henriquez, with use of SBAR Why they are here: Pt was placed on a 5150 in [facility]. Pt appeared to be disheveled, was hungry, and dehydrated. He is unable to provide a viable plan for food, clothing, or fdc. Assessment What has happened this shift: Patient laying in bed at the beginning of shift.Pleasant and cooperative with care; compliant with medication. PRN Nicotine lozenge provided and Nicotine patch removed/discarded by automobile and property underwriter. Patient denies SI, HI, A/VH. He participated in HS snack and shortly after returned to bed; observed sleeping and does not appear to be having difficulty. S/I, H/I: Denies A/VH: Denies Sleep: Refer to sleep assessment ADL's: Independent Group attendance: NA Were meds taken: Yes Any med S/E: None observed or reported Mental Status Exam Appearance: Appropriately dressed in person attire Eye contact: Good Behavior: Pleasant and cooperative Speech: Clear, mumbles/stutters at times, minimal Mood: Euthymic Affect: Pleasant Thought process: Linear, fixed delusions Thought Content: Meeting needs Cognition: A&O x3 Insight: Poor Judgment: Poor Interventions PRN's used: Nicotine Lozenge Therapeutic interventions: Maintained a safe and supportive environment, provided clear and simple instructions, therapeutic communication, active listening, medication administration/education/monitoring, encouragement to attend groups, provided distraction, attempted reality orientation, provided positive reinforcement, and maintained Q15 minute safety checks. Restraints/seclusion/emergency medication: NA Justification of Continued Inpatient Treatment: Pt continues to be gravely disabled, he is unable to formulate a viable plan for food, clothing, and fdc. He came to us from [facility] here on a Short [place], [facility] is discussing an LPS referral.
[2021-08-05 06:56] VITALS: BP 130/87
[2021-08-05] MEDS: atorvastatin 20mg tablet PO SCH (07:53)
[2021-08-05] MEDS: multivitamins, therapeutics tablet PO SCH (07:53)
[2021-08-05] MEDS: propranolol 10mg tablet PO SCH ×2 (07:53→20:20)
[2021-08-05] MEDS: OLANZAPINE 5 MG TABLET PO SCH ×2 (07:53→12:07)
[2021-08-05] MEDS: nicotine 21mg patch - 24 hr TD SCH (07:59)
[2021-08-05 08:00] VITALS: BP 130/87
[2021-08-05] MEDS: NICOTINE POLACRILEX 2 MG LOZENGE BC PRN ×4 (12:10→21:53)
--- NOTE | 2021-08-05 17:14 | NUR ---
Nursing Progress Note: Legal hold: TCON Client on involuntary status for GD Report received from nurse Laureen MENDOZA with use of SBAR Why are they here: Pt was placed on a 5150 in [facility]. Pt appeared to be disheveled, was hungry, and dehydrated. He is unable to provide a viable plan for food, clothing, or alf. Assessment What has happened this shift: Pt was up before breakfast and requested multiple cups of coffee. Pt is pleasant and cooperative. Pt paces in the hallway. Pt was observed responding to internal stimuli mumbling animatedly to himself while pacing. No unsafe behaviors noted. S/I, H/I: Pt denies. A/VH: Pt denies though appears to be responding to internal stimuli. Sleep: Pt slept 9.5 hours last night per noc shift report. ADL's: Independent Group attendance: No groups today. Were meds taken: Yes Any med S/E: None noted or reported. Mental Status Exam Appearance: Older appearing, weathered skinned man with dark longish brown hair bald on top dressed in jeans and a gastelum sweatshirt. Eye contact: Fair to good. Behavior: Pleasant, cooperative, paces, enjoys coffee. Speech: Somewhat rapid, mumbles. Mood: Good. Affect: Pleasant, mildly animated. Thought process: Fixed delusions. Thought Content: Focused on when he can get some coffee to drink throughout the day. Cognition: A/O X 2 Insight: Poor Judgment: Poor Interventions PRN's used: None Therapeutic interventions: 1:1 assessment, maintained a safe and supportive environment, provided clear and simple instructions, therapeutic communication, active listening, medication administration/education/monitoring, provided distraction, redirection, provided positive reinforcement, and maintained Q15 minute safety checks. Restraints/seclusion/emergency medication: N/A Justification of Continued Inpatient Treatment: Pt continues to be gravely disabled, he is unable to formulate a viable plan for food, clothing, and alf. He came to us from [facility] here on a Short [place], [facility] wishes to pursue conservatorship.
[2021-08-05 20:03] VITALS: BP 129/86
[2021-08-05] MEDS: olanzapine 10mg tablet PO SCH (20:19)
--- NOTE | 2021-08-06 03:44 | NUR ---
Nursing Progress Note: Legal hold: TCon Client on involuntary status for GD Report received from GAIL Henriquez, with use of SBAR Why they are here: Pt was placed on a 5150 in [facility]. Pt appeared to be disheveled, was hungry, and dehydrated. He is unable to provide a viable plan for food, clothing, or prison. Assessment What has happened this shift: Patient laying in bed at the beginning of shift.Pleasant and cooperative with care; compliant with medication. PRN Nicotine lozenge provided and Nicotine patch removed/discarded by [employer] operator. Patient denies SI, HI, A/VH. He participated in HS snack and shortly after returned to bed; observed sleeping and does not appear to be having difficulty. S/I, H/I: Denies A/VH: Denies Sleep: Refer to sleep assessment ADL's: Independent Group attendance: NA Were meds taken: Yes Any med S/E: None observed or reported Mental Status Exam Appearance: Appropriately dressed in person attire Eye contact: Good Behavior: Pleasant and cooperative Speech: Clear, mumbles/stutters at times, minimal Mood: Euthymic Affect: Pleasant Thought process: Linear, fixed delusions Thought Content: Meeting needs Cognition: A&O x3 Insight: Poor Judgment: Poor Interventions PRN's used: Nicotine Lozenge Therapeutic interventions: Maintained a safe and supportive environment, provided clear and simple instructions, therapeutic communication, active listening, medication administration/education/monitoring, encouragement to attend groups, provided distraction, attempted reality orientation, provided positive reinforcement, and maintained Q15 minute safety checks. Restraints/seclusion/emergency medication: NA Justification of Continued Inpatient Treatment: Pt continues to be gravely disabled, he is unable to formulate a viable plan for food, clothing, and prison. He came to us from [facility] here on a [place], [facility] is discussing an LPS referral.
[2021-08-06] MEDS: atorvastatin 20mg tablet PO SCH (07:41)
[2021-08-06] MEDS: multivitamins, therapeutics tablet PO SCH (07:41)
[2021-08-06] MEDS: OLANZAPINE 5 MG TABLET PO SCH ×2 (07:41→11:37)
[2021-08-06] MEDS: propranolol 10mg tablet PO SCH ×2 (07:41→20:07)
[2021-08-06] MEDS: nicotine 21mg patch - 24 hr TD SCH (07:44)
[2021-08-06 07:47] VITALS: BP 114/89
[2021-08-06] MEDS: NICOTINE POLACRILEX 2 MG LOZENGE BC PRN ×5 (08:28→22:05)
--- NOTE | 2021-08-06 16:16 | NUR ---
Nursing Progress Note Legal hold: T-Con Client on involuntary status for GD Report received from RN with use of SBAR Why are they here: Pt was placed on a 5150 in [facility]. Pt appeared to be disheveled, was hungry, and dehydrated. He is unable to provide a viable plan for food, clothing, or detention. Assessment What has happened this shift: Received Pt sleeping in his room w/o distress at the beginning of the shift. Pt woke and was cooperative with vitals and AM assessments. Pt took AM meds w/o issue and ate meals well. Pt used nicotine lozenges throughout the day and paced the halls. Pt continues to be pleasant and cooperative and continues to deny that he is a MH Sxs. Pt does not want to be conserved. Appreciative of anything done for him. S/I, H/I: Pt denies A/VH: Pt denies, appears to be responding to internal stimuli Sleep: None this shift ADL's: Independent Group attendance: No Were meds taken: Yes Any med S/E: None noted or reported Mental Status Exam Appearance: Casual in own clothes Eye contact: Good Behavior: Pleasant, cooperative, paces Speech: Mumbles Mood: Euthymic; mild anxiety Affect: Animated Thought process: Fixed delusions Thought Content: He does not have mental health Sxs; does not want to be conserved Cognition: A/O X 2 Insight: Poor Judgment: Poor Interventions PRN's used: None Therapeutic interventions: 1:1 assessment, maintained a safe and supportive environment, provided clear and simple instructions, therapeutic communication, active listening, medication administration/education/monitoring, encouragement to attend groups, provided distraction, redirection, attempted reality orientation, provided positive reinforcement, and maintained Q15 minute safety checks. Restraints/seclusion/emergency medication: N/A Justification of Continued Inpatient Treatment: Pt continues to be gravely disabled, he is unable to formulate a viable plan for food, clothing, and detention. [facility] has filed T-Con.
[2021-08-06 19:39] VITALS: BP 127/85
[2021-08-06] MEDS: olanzapine 10mg tablet PO SCH (20:08)
--- NOTE | 2021-08-07 05:08 | NUR ---
Nursing Progress Note: Legal hold: TCon Client on involuntary status for GD Report received from GAIL Johnson, with use of SBAR Why they are here: Pt was placed on a 5150 in [facility]. Pt appeared to be disheveled, was hungry, and dehydrated. He is unable to provide a viable plan for food, clothing, or mcfp. Assessment What has happened this shift: Patient laying awake in bed at the beginning of shift. Pleasant and cooperative with care; compliant with medication. PRN Nicotine lozenge provided and patch removed. Patient denies SI, HI, A/VH. He participated in HS snack and promptly returned to bed; observed sleeping and does not appear to be having difficulty. S/I, H/I: Denies A/VH: Denies Sleep: Refer to sleep assessment ADL's: Independent Group attendance: NA Were meds taken: Yes Any med S/E: None observed or reported Mental Status Exam Appearance: Appropriately dressed in person attire Eye contact: Good Behavior: Pleasant and cooperative Speech: Clear, mumbles/stutters at times, minimal Mood: Euthymic Affect: Pleasant Thought process: Linear, fixed delusions Thought Content: Meeting needs Cognition: A&O x3 Insight: Poor Judgment: Poor Interventions PRN's used: Nicotine Lozenge Therapeutic interventions: Maintained a safe and supportive environment, provided clear and simple instructions, therapeutic communication, active listening, medication administration/education/monitoring, encouragement to attend groups, provided distraction, attempted reality orientation, provided positive reinforcement, and maintained Q15 minute safety checks. Restraints/seclusion/emergency medication: NA Justification of Continued Inpatient Treatment: Pt continues to be gravely disabled, he is unable to formulate a viable plan for food, clothing, and mcfp. He came to us from [facility] here on a Short [place], [facility] is discussing an LPS referral.
[2021-08-07] MEDS: OLANZAPINE 5 MG TABLET PO SCH ×2 (07:31→13:30)
[2021-08-07] MEDS: propranolol 10mg tablet PO SCH ×2 (07:31→20:06)
[2021-08-07] MEDS: nicotine 21mg patch - 24 hr TD SCH (07:31)
[2021-08-07] MEDS: multivitamins, therapeutics tablet PO SCH (07:31)
[2021-08-07] MEDS: atorvastatin 20mg tablet PO SCH (07:31)
[2021-08-07] MEDS: NICOTINE POLACRILEX 2 MG LOZENGE BC PRN ×5 (07:37→20:06)
[2021-08-07 08:13] VITALS: BP 135/97
--- NOTE | 2021-08-07 17:45 | NUR ---
Nursing Progress Note: Legal hold: TCon Client on involuntary status for GD Report received from GAIL Johnson, with use of SBAR Why they are here: Pt was placed on a 5150 in [facility]. Pt appeared to be disheveled, was hungry, and dehydrated. He is unable to provide a viable plan for food, clothing, or retirement. Assessment What has happened this shift: Received patient while he was ambulating laps through the hallway at a quick step. Stopped patient to ask if he would like something for anxiety. Patient stated No, this is just what I do. Patient said Im just trying to not let the medication get it me because I never have taken this stuff before. Informed the patient that I would be getting his routine medications with his breakfast. Patient continues to have a great appetite. Patient ate breakfast and came to his room for his Patient Assessment & Interview. Patient states Do you have a cup of coffee you could get me, quite often throughout the day. S/I, H/I: Denies A/VH: Denies Sleep: Patient took an approximately one hour am & pm nap. ADL's: Independent Group attendance: No Group Meeting Held Today. Were meds taken: Yes, without hesitation. Any med S/E: None observed or reported Mental Status Exam Appearance: Man with balding hair and wearing his own personal attire (Bermudez sweatshirt & Blue Jeans), Eye contact: Poor, looks down at the floor when he is speaking directly to you Behavior: Pleasant, talks to self Speech: Clear, mumbles/stutters at times, minimal Mood: Euthymic Affect: Pleasant Thought process: Poverty of Thought Thought Content: Meeting own needs Cognition: A&O x3 Insight: Poor Judgment: Poor Interventions PRN's used: Nicotine Lozenge Therapeutic interventions: Maintained a safe and supportive environment, provided clear and simple instructions, therapeutic communication, active listening, medication administration/education/monitoring, encouragement to attend groups, provided distraction, attempted reality orientation, provided positive reinforcement, and maintained Q15 minute safety checks. Restraints/seclusion/emergency medication: NA Justification of Continued Inpatient Treatment: Pt continues to be gravely disabled, he is unable to formulate a viable plan for food, clothing, and retirement. He came to us from [facility] here on a Short [place], [facility] is discussing an LPS referral.
[2021-08-07 19:00] VITALS: BP 127/82
[2021-08-07] MEDS: olanzapine 10mg tablet PO SCH (20:06)
--- NOTE | 2021-08-08 04:51 | NUR ---
Nursing Progress Note: Legal hold: TCon Client on involuntary status for GD Report received from Juan RN, with use of SBAR Why they are here: Pt was placed on a 5150 in [facility]. Pt appeared to be disheveled, was hungry, and dehydrated. He is unable to provide a viable plan for food, clothing, or skilled nursing. Assessment What has happened this shift: Patient watching TV in the community room at the beginning of shift. Pleasant and cooperative with care; compliant with medication. PRN Nicotine lozenge provided and Nicotine patch removed. Patient denies SI, HI, A/VH. He participated in HS snack, continued to watch TV and briefly paced the halls prior to bed; observed sleeping and does not appear to be having difficulty. S/I, H/I: Denies A/VH: Denies Sleep: Refer to sleep assessment ADL's: Independent Group attendance: NA Were meds taken: Yes Any med S/E: None observed or reported Mental Status Exam Appearance: Appropriately dressed in person attire Eye contact: Good Behavior: Pleasant and cooperative Speech: Clear, mumbles/stutters at times, minimal Mood: Euthymic Affect: Pleasant Thought process: Linear, fixed delusions Thought Content: Meeting needs Cognition: A&O x3 Insight: Poor Judgment: Poor Interventions PRN's used: Nicotine Lozenge Therapeutic interventions: Maintained a safe and supportive environment, provided clear and simple instructions, therapeutic communication, active listening, medication administration/education/monitoring, encouragement to attend groups, provided distraction, attempted reality orientation, provided positive reinforcement, and maintained Q15 minute safety checks. Restraints/seclusion/emergency medication: NA Justification of Continued Inpatient Treatment: Pt continues to be gravely disabled, he is unable to formulate a viable plan for food, clothing, and skilled nursing. He came to us from [facility] here on a Short [place], [facility] is discussing an LPS referral.
[2021-08-08] MEDS: atorvastatin 20mg tablet PO SCH (07:34)
[2021-08-08] MEDS: multivitamins, therapeutics tablet PO SCH (07:34)
[2021-08-08] MEDS: nicotine 21mg patch - 24 hr TD SCH (07:34)
[2021-08-08] MEDS: OLANZAPINE 5 MG TABLET PO SCH ×2 (07:35→12:24)
[2021-08-08] MEDS: propranolol 10mg tablet PO SCH ×2 (07:40→20:36)
[2021-08-08] MEDS: NICOTINE POLACRILEX 2 MG LOZENGE BC PRN ×6 (07:44→21:05)
[2021-08-08 08:00] VITALS: BP 142/92
--- NOTE | 2021-08-08 17:15 | NUR ---
Nursing Progress Note: Legal hold: T-Con Client on involuntary status for GD Report received from GAIL Gill, with use of SBAR Why they are here: Pt was placed on a 5150 in [facility]. Pt appeared to be disheveled, was hungry, and dehydrated. He is unable to provide a viable plan for food, clothing, or usp. Assessment What has happened this shift: Received patient when he was up early at 0615, ambulating in the hallway and requesting a cup of coffee. Informed the patient that coffee would be available at 0700, and he could get a cup of coffee then. Patient continued to make lap after lap in the hallways walking up and down both hallways. Patient ate his meals and snacks in the Community Room and resting in bed between meals. At approximately 0745, when patient requested his first Nicotine Lozenge, patient asked Am I going to court today to get this over with, I need to know because I am in the Witness Protection Program. Advised patient that according to my paperwork, his next court hearing was 08/29/21. Patient stated Im not very happy about that. Patient left with his Nicotine Lozenge in hand. At approximately 1100 and again at 1340, patient was encouraged to attend the Group Meeting held in the Community Room, but did not show for the meeting. Instead the patient said he was going to lay down for a bit. S/I, H/I: Denies A/VH: Denies Sleep: Patient took an approximately one hour am & pm nap. ADL's: Independent Group attendance: Patient did not attend Group Meeting today despite encouragement. Were meds taken: Yes, without hesitation. Any med S/E: None observed or reported Mental Status Exam Appearance: Man with balding hair and wearing his own personal attire (Bermudez sweatshirt & Blue Jeans), Eye contact: Poor, looks down at the floor when he is speaking directly to you Behavior: Pleasant, talks to self Speech: Clear, mumbles/stutters at times, minimal Mood: Euthymic Affect: Pleasant Thought process: Poverty of Thought Thought Content: Meeting own needs Cognition: A&O x3 Insight: Poor Judgment: Poor Interventions PRN's used: Nicotine Lozenge Therapeutic interventions: Maintained a safe and supportive environment, provided clear and simple instructions, therapeutic communication, active listening, medication administration/education/monitoring, encouragement to attend groups, provided distraction, attempted reality orientation, provided positive reinforcement, and maintained Q15 minute safety checks. Restraints/seclusion/emergency medication: NA Justification of Continued Inpatient Treatment: Pt continues to be gravely disabled, he is unable to formulate a viable plan for food, clothing, and usp. He came to us from [facility] here on a Short [place], [facility] is discussing an LPS referral.
[2021-08-08 20:21] VITALS: BP 137/89
[2021-08-08] MEDS: olanzapine 10mg tablet PO SCH (20:36)
--- NOTE | 2021-08-09 01:46 | NUR ---
Nursing Progress Note: Legal hold: T-Con Client on involuntary status for GD Report received from GAIL Dillard, with use of SBAR Why they are here: Pt was placed on a 5150 in [facility]. Pt appeared to be disheveled, was hungry, and dehydrated. He is unable to provide a viable plan for food, clothing, or custodial. Assessment What has happened this shift: Pt up walking in halls at start of shift. Pt is pleasant and cooperative with care. He says he is "doing good." Denies all MH symptoms no delusional statements made this shift. Pt is unaware of any discharge plan. S/I, H/I: Denies A/VH: Denies Sleep: asleep at this time ADL's: Independent Group attendance: Patient did not attend Group Meeting today despite encouragement. Were meds taken: Yes, without hesitation. Any med S/E: None observed or reported Mental Status Exam Appearance: Man with balding hair and wearing his own personal attire (Bermudez sweatshirt & Blue Jeans), Eye contact: Poor, looks down at the floor when he is speaking directly to you Behavior: Pleasant, talks to self Speech: Clear, mumbles/stutters at times, minimal Mood: Euthymic Affect: Pleasant Thought process: Poverty of Thought Thought Content: Meeting own needs Cognition: A&O x3 Insight: Poor Judgment: Poor Interventions PRN's used: Nicotine Lozenge Therapeutic interventions: Maintained a safe and supportive environment, provided clear and simple instructions, therapeutic communication, active listening, medication administration/education/monitoring, encouragement to attend groups, provided distraction, attempted reality orientation, provided positive reinforcement, and maintained Q15 minute safety checks. Restraints/seclusion/emergency medication: NA Justification of Continued Inpatient Treatment: Pt continues to be gravely disabled, he is unable to formulate a viable plan for food, clothing, and custodial. He came to us from [facility] here on a Short [place], [facility] is discussing an LPS referral.
[2021-08-09 07:41] VITALS: BP 135/95
[2021-08-09] MEDS: atorvastatin 20mg tablet PO SCH (08:00)
[2021-08-09] MEDS: propranolol 10mg tablet PO SCH ×2 (08:00→19:59)
[2021-08-09] MEDS: multivitamins, therapeutics tablet PO SCH (08:01)
[2021-08-09] MEDS: nicotine 21mg patch - 24 hr TD SCH (08:01)
[2021-08-09] MEDS: NICOTINE POLACRILEX 2 MG LOZENGE BC PRN ×7 (08:01→22:03)
[2021-08-09] MEDS: OLANZAPINE 5 MG TABLET PO SCH ×2 (08:01→12:29)
--- NOTE | 2021-08-09 13:21 | NUR ---
PLACEMENT UPDATE Jerardo is #4 on the wait list for [facility]. AGUILAR Cloud
--- NOTE | 2021-08-09 15:58 | NUR ---
Nursing Progress Note: Legal hold: T-Con Client on involuntary status for GD Report received from GAIL Gill, with use of SBAR Why they are here: Pt was placed on a 5150 in [facility]. Pt appeared to be disheveled, was hungry, and dehydrated. He is unable to provide a viable plan for food, clothing, or fpc. Assessment What has happened this shift: Patient was asleep at change of shift and up before breakfast. Patient is always polite and kind. Patient asked RN "If you need to be in the witness protection program I can get you in! People who may be after you could really hurt you"......(then he mumbled off). Patient has this fixed delusion that he is in the witness protection program. He paces up and down the hallway and then he will go lay down for a while. Patient asks for Nicotine lozenges throughout the day and sometimes makes simple conversation. Patient also likes coffee and will ask often for a cup. Patient possibly has some thought blocking as patient will start a conversation about a subject and cannot finish his thought. S/I, H/I: Denies A/VH: Denies Sleep: Several short naps ADL's: Independent Group attendance: No Were meds taken: Yes Any med S/E: None observed or reported Mental Status Exam Appearance: Man with balding hair and wearing blue jeans and a green scrub top. Eye contact: Fair, patient appears shy and will sometimes look away when speaking to patient Behavior: Pleasant Speech: Mumbles at times. Poverty of speech Mood: Euthymic Affect: Pleasant Thought process: Possibly thought blocking Thought Content: Being in the witness protection program Cognition: A&O x3 Insight: Poor Judgment: Poor Interventions PRN's used: Nicotine Lozenge Therapeutic interventions: Maintained a safe and supportive environment, provided clear and simple instructions, therapeutic communication, active listening, medication administration/education/monitoring, encouragement to attend groups, provided distraction, attempted reality orientation, provided positive reinforcement, and maintained Q15 minute safety checks. Restraints/seclusion/emergency medication: NA Justification of Continued Inpatient Treatment: Pt continues to be gravely disabled, he is unable to formulate a viable plan for food, clothing, and fpc. He came to us from [facility] here on a [place], [facility] placed patient on a Temporary Conservatorship
[2021-08-09 19:00] VITALS: BP 135/87
[2021-08-09] MEDS: olanzapine 10mg tablet PO SCH (19:59)
--- NOTE | 2021-08-10 04:58 | NUR ---
Nursing Progress Note: Legal hold: TCon Client on involuntary status for GD Report received from Gilma REYNOLDS, with use of SBAR Why they are here: Pt was placed on a 5150 in [facility]. Pt appeared to be disheveled, was hungry, and dehydrated. He is unable to provide a viable plan for food, clothing, or half-way. Assessment What has happened this shift: Patient walking the unit at the beginning of shift. Pleasant and cooperative with care; compliant with medication. PRN Nicotine lozenge provided and patch removed. Patient denies SI, HI, A/VH. He participated in HS snack prior to bed; observed sleeping and does not appear to be having difficulty. S/I, H/I: Denies A/VH: Denies Sleep: Refer to sleep assessment ADL's: Independent Group attendance: NA Were meds taken: Yes Any med S/E: None observed or reported Mental Status Exam Appearance: Appropriately dressed in person attire Eye contact: Good Behavior: Pleasant and cooperative Speech: Clear, mumbles/stutters at times, minimal Mood: Euthymic Affect: Pleasant Thought process: Linear, fixed delusions Thought Content: Meeting needs Cognition: A&O x3 Insight: Poor Judgment: Poor Interventions PRN's used: Nicotine Lozenge Therapeutic interventions: Maintained a safe and supportive environment, provided clear and simple instructions, therapeutic communication, active listening, medication administration/education/monitoring, encouragement to attend groups, provided distraction, attempted reality orientation, provided positive reinforcement, and maintained Q15 minute safety checks. Restraints/seclusion/emergency medication: NA Justification of Continued Inpatient Treatment: Pt continues to be gravely disabled, he is unable to formulate a viable plan for food, clothing, and half-way. He came to us from [facility] here on a [place], [facility] is discussing an LPS referral.
[2021-08-10 07:41] VITALS: BP 117/73
[2021-08-10] MEDS: propranolol 10mg tablet PO SCH ×2 (08:07→20:19)
[2021-08-10] MEDS: OLANZAPINE 5 MG TABLET PO SCH ×2 (08:07→12:32)
[2021-08-10] MEDS: multivitamins, therapeutics tablet PO SCH (08:07)
[2021-08-10] MEDS: NICOTINE POLACRILEX 2 MG LOZENGE BC PRN ×7 (08:07→22:22)
[2021-08-10] MEDS: atorvastatin 20mg tablet PO SCH (08:07)
[2021-08-10] MEDS: nicotine 21mg patch - 24 hr TD SCH (08:07)
--- NOTE | 2021-08-10 11:43 | NUR ---
Reassessment: Pt continues eating well with mostly 100% PO intake on regular diet meeting estimated nutrient needs. Noted Ensure High Protein was discontinued 07/20 per EMR however pt still receiving ONS, d/w dietary to discontinue sending ONS as it no longer is an active rx and ONS not indicated given pt meeting estimated nutrient needs since admit with PO intake of meals alone. LBM 08/08. Will continue to follow. Recommendations: 1. Continue regular diet 2. Bowel care per rx 3. Weekly scaled wts Addendum: 08/10/21 at [address] Amended: Links added.
--- NOTE | 2021-08-10 14:35 | NUR ---
Nursing Progress Note: Legal hold: T-Con Client on involuntary status for GD Report received from ELLYN Velasquez, with use of SBAR Why they are here: Pt was placed on a 5150 in [facility]. Pt appeared to be disheveled, was hungry, and dehydrated. He is unable to provide a viable plan for food, clothing, or alf. Assessment What has happened this shift: Patient was asleep at change of shift and up soon after. Patient was pacing the halls. Patient is polite and apologetic to RN for "bothering you." RN explains you are never a bother. Patient makes eye contact, then feels uncomfortable and looks away. Patient did not make any delusional statements to RN today. But when patient was pacing up and down the halls patient appeared to to talking to voices and explaining the witness protection program in his conversation. Patient is never any problem. Patient asking fairly often for his nicotine lozenges. S/I, H/I: Denies A/VH: Denies Sleep: Several short naps ADL's: Independent Group attendance: No Were meds taken: Yes Any med S/E: None observed or reported Mental Status Exam Appearance: Man with balding hair and wearing blue jeans and a dirty sweat shirt Eye contact: Fair, patient appears shy and will sometimes look away when speaking to patient Behavior: Pleasant, isolative Speech: Mumbles at times. Poverty of speech Mood: Euthymic Affect: Pleasant Thought process: delusional (with fixed delusion) Thought Content: Being in the witness protection program Cognition: A&O x3 Insight: Poor Judgment: Poor Interventions PRN's used: Nicotine Lozenges Therapeutic interventions: Maintained a safe and supportive environment, provided clear and simple instructions, therapeutic communication, active listening, medication administration/education/monitoring, encouragement to attend groups, provided distraction, attempted reality orientation, provided positive reinforcement, and maintained Q15 minute safety checks. Restraints/seclusion/emergency medication: NA Justification of Continued Inpatient Treatment: Pt continues to be gravely disabled, he is unable to formulate a viable plan for food, clothing, and alf. He came to us from [facility] here on a [place], [facility] placed patient on a Temporary Conservatorship
[2021-08-10 19:49] VITALS: BP 121/91
[2021-08-10] MEDS: olanzapine 10mg tablet PO SCH (20:19)
--- NOTE | 2021-08-11 04:30 | NUR ---
Nursing Progress Note: Legal hold: TCon Client on involuntary status for GD Report received from Gilma REYNOLDS, with use of SBAR Why they are here: Pt was placed on a 5150 in [facility]. Pt appeared to be disheveled, was hungry, and dehydrated. He is unable to provide a viable plan for food, clothing, or longterm. Assessment What has happened this shift: Patient laying in bed awake at the beginning of shift. Pleasant and cooperative with care; compliant with medication. PRN Nicotine lozenge provided and patch removed. Patient denies SI, HI, A/VH. Patient up for HS snack and briefly walked the unit prior to bed; observed sleeping and does not appear to be having difficulty. S/I, H/I: Denies A/VH: Denies Sleep: Refer to sleep assessment ADL's: Independent Group attendance: NA Were meds taken: Yes Any med S/E: None observed or reported Mental Status Exam Appearance: Appropriately dressed in person attire Eye contact: Good Behavior: Pleasant and cooperative Speech: Clear, mumbles/stutters at times, minimal Mood: Euthymic Affect: Pleasant Thought process: Linear, fixed delusions Thought Content: Meeting needs Cognition: A&O x3 Insight: Poor Judgment: Poor Interventions PRN's used: Nicotine Lozenge Therapeutic interventions: Maintained a safe and supportive environment, provided clear and simple instructions, therapeutic communication, active listening, medication administration/education/monitoring, encouragement to attend groups, provided distraction, attempted reality orientation, provided positive reinforcement, and maintained Q15 minute safety checks. Restraints/seclusion/emergency medication: NA Justification of Continued Inpatient Treatment: Pt continues to be gravely disabled, he is unable to formulate a viable plan for food, clothing, and longterm. He came to us from [facility] here on a [place], [facility] is discussing an LPS referral.
[2021-08-11] MEDS: propranolol 10mg tablet PO SCH ×2 (07:47→20:21)
[2021-08-11] MEDS: nicotine 21mg patch - 24 hr TD SCH (07:47)
[2021-08-11] MEDS: multivitamins, therapeutics tablet PO SCH (07:47)
[2021-08-11] MEDS: OLANZAPINE 5 MG TABLET PO SCH ×2 (07:47→12:49)
[2021-08-11] MEDS: atorvastatin 20mg tablet PO SCH (07:47)
[2021-08-11] MEDS: NICOTINE POLACRILEX 2 MG LOZENGE BC PRN ×6 (07:59→20:21)
[2021-08-11 08:01] VITALS: BP 121/86
--- NOTE | 2021-08-11 17:20 | NUR ---
Nursing Progress Note: Jerardo Young Legal hold: T-Con Client on involuntary status for GD Report received from ELLYN Velasquez, with use of SBAR Why they are here: Pt was placed on a 5150 in [facility]. Pt appeared to be disheveled, was hungry, and dehydrated. He is unable to provide a viable plan for food, clothing, or half-way. Assessment What has happened this shift: Patient received sleeping in his room at shift change. He was awoken to join in the group room with peers for breakfast. Patient observed to be quiet and reserved yet polite upon interaction. He was receptive to all scheduled medications. Patient continues to endorse paranoid delusions of being in the Witness Protection Program and going by a different name other than his own. Patient is noted pacing up and down the hallway throughout the day, noted responding to internal stimuli. Patient observed starting at the ground while walking and talking quietly under his breath. He denies SI/HI, AH or VH. Patient endorsed that no street crime or danger has been done by him. He continues to perseverate on being released to the streets. He was noted taking a short nap after lunch time. He continues to verbalize being in the [employer] and desire to find VS housing. He is noted to be quiet and self-isolative, seldomly communicating when asking for something or responding to a question. He was active on the unit the majority of the day. Patient participated for all meal and snack times in the group room with peers. S/I, H/I: Denies A/VH: Denies, however, appears to be responding to IS Sleep: Pt slept 7.75 hours last night per NOC shift. Napped for approximately 2 hours on this shift. ADL's: Independent Group attendance: No Were meds taken: Yes Any med S/E: None observed or reported Mental Status Exam Appearance: Disheveled man with balding hair, wearing blue jeans and salinas sweat shirt. Eye contact: Fair, unable to maintain eye contact. Behavior: Pleasant, isolative Speech: Mumbles at times. Repeatedly stutters when answering questions. Poverty of speech. Mood: Euthymic Affect: Pleasant Thought process: Delusional (with fixed delusion), disorganized Thought Content: Being in the witness protection program. Perseveration on discharge. Cognition: A&O x3 Insight: Poor Judgment: Poor Interventions PRN's used: Nicotine Lozenges Therapeutic interventions: Maintained a safe and supportive environment, provided clear and simple instructions, therapeutic communication, active listening, medication administration/education/monitoring, encouragement to attend groups, provided distraction, attempted reality orientation, provided positive reinforcement, and maintained Q15 minute safety checks. Restraints/seclusion/emergency medication: NA Justification of Continued Inpatient Treatment: Pt continues to be gravely disabled, he is unable to formulate a viable plan for food, clothing, and half-way. He came to us from [facility] here on a Short [place], [facility] placed patient on a Temporary Conservatorship.
[2021-08-11 19:00] VITALS: BP 137/92
[2021-08-11] MEDS: olanzapine 10mg tablet PO SCH (20:21)
--- NOTE | 2021-08-12 04:54 | NUR ---
Nursing Progress Note: Legal hold: TCon Client on involuntary status for GD Report received from Martinez REYNOLDS, with use of SBAR Why they are here: Pt was placed on a 5150 in [facility]. Pt appeared to be disheveled, was hungry, and dehydrated. He is unable to provide a viable plan for food, clothing, or skilled nursing. Assessment What has happened this shift: Patient sitting in his room at the beginning of shift. Pleasant and cooperative with care; compliant with medication. PRN Nicotine lozenge provided and patch removed. Continues to deny SI, HI, A/VH; "I don't suffer from mental illness." Patient participated in HS snack and paced the hager prior to bed; observed sleeping and does not appear to be having difficulty. S/I, H/I: Denies A/VH: Denies Sleep: Refer to sleep assessment ADL's: Independent Group attendance: NA Were meds taken: Yes Any med S/E: None observed or reported Mental Status Exam Appearance: Appropriately dressed in person attire Eye contact: Good Behavior: Pleasant and cooperative Speech: Clear, mumbles/stutters at times, minimal Mood: Euthymic Affect: Pleasant Thought process: Linear, fixed delusions Thought Content: Meeting needs Cognition: A&O x3 Insight: Poor Judgment: Poor Interventions PRN's used: Nicotine Lozenge Therapeutic interventions: Maintained a safe and supportive environment, provided clear and simple instructions, therapeutic communication, active listening, medication administration/education/monitoring, encouragement to attend groups, provided distraction, attempted reality orientation, provided positive reinforcement, and maintained Q15 minute safety checks. Restraints/seclusion/emergency medication: NA Justification of Continued Inpatient Treatment: Pt continues to be gravely disabled, he is unable to formulate a viable plan for food, clothing, and skilled nursing. He came to us from [facility] here on a Short [place], [facility] is discussing an LPS referral.
[2021-08-12] MEDS: OLANZAPINE 5 MG TABLET PO SCH ×2 (07:51→12:44)
[2021-08-12] MEDS: atorvastatin 20mg tablet PO SCH (07:51)
[2021-08-12] MEDS: propranolol 10mg tablet PO SCH ×2 (07:51→20:14)
[2021-08-12] MEDS: nicotine 21mg patch - 24 hr TD SCH (07:51)
[2021-08-12] MEDS: multivitamins, therapeutics tablet PO SCH (07:51)
[2021-08-12 08:00] VITALS: BP 130/85
[2021-08-12] MEDS: NICOTINE POLACRILEX 2 MG LOZENGE BC PRN ×5 (08:12→20:14)
--- NOTE | 2021-08-12 17:31 | NUR ---
Nursing Progress Note: Jerardo Myerss Legal hold: T-Con Client on involuntary status for GD Report received from ELLYN Dave, with use of SBAR Why they are here: Pt was placed on a 5150 in [facility]. Pt appeared to be disheveled, was hungry, and dehydrated. He is unable to provide a viable plan for food, clothing, or snf. Assessment What has happened this shift: Patient received walking around the unit at change of shift. He was receptive to scheduled medication. Patient joined for breakfast in the group room, noted eating quietly by himself. He continues to present as quiet and reserved yet polite upon interaction. Patient continues to deny all mental health symptoms. He is observed pacing throughout the unit, noted responding to internal stimuli throughout the day. Patient continues to perseverate on discharge and being in the [employer] Witness [employer] Program. He is noted to be quiet and self-isolative, seldomly communicating when asking for something or responding to a question. He was active on the unit throughout the day. Patient participated for all meal and snack times in the group room with peers. S/I, H/I: Denies A/VH: Denies, however, appears to be responding to IS Sleep: Pt slept 7.75 hours last night per NOC shift. Napped for approximately 1 hour on this shift. ADL's: Independent Group attendance: No Were meds taken: Yes Any med S/E: None observed or reported Mental Status Exam Appearance: Disheveled man with balding hair, wearing blue jeans and salinas sweat shirt. Eye contact: Fair, unable to maintain eye contact. Behavior: Pleasant, isolative Speech: Mumbles at times. Repeatedly stutters when answering questions. Poverty of speech. Mood: Euthymic Affect: Pleasant Thought process: Delusional (with fixed delusion), disorganized Thought Content: Being in the witness protection program. Perseveration on discharge. Cognition: A&O x3 Insight: Poor Judgment: Poor Interventions PRN's used: Nicotine Lozenges Therapeutic interventions: Maintained a safe and supportive environment, provided clear and simple instructions, therapeutic communication, active listening, medication administration/education/monitoring, encouragement to attend groups, provided distraction, attempted reality orientation, provided positive reinforcement, and maintained Q15 minute safety checks. Restraints/seclusion/emergency medication: NA Justification of Continued Inpatient Treatment: Pt continues to be gravely disabled, he is unable to formulate a viable plan for food, clothing, and snf. He came to us from [facility] here on a Short [place], [facility] placed patient on a Temporary Conservatorship.
[2021-08-12 19:42] VITALS: BP 136/90
[2021-08-12] MEDS: olanzapine 10mg tablet PO SCH (20:13)
--- NOTE | 2021-08-13 03:51 | NUR ---
Nursing Progress Note: Legal hold: TCon Client on involuntary status for GD Report received from Martinez REYNOLDS, with use of SBAR Why they are here: Pt was placed on a 5150 in [facility]. Pt appeared to be disheveled, was hungry, and dehydrated. He is unable to provide a viable plan for food, clothing, or care home. Assessment What has happened this shift: Patient awake in his room at the beginning of shift. Pleasant and cooperative with care; compliant with medication. PRN Nicotine lozenge provided and patch removed. Patient denies SI, HI, A/VH; appears to be responding to IS. Patient participated in HS snack and promptly returned to his room. Patient observed sleeping and does not appear to be having difficulty. S/I, H/I: Denies A/VH: Denies; appear to be responding to IS Sleep: Refer to sleep assessment ADL's: Independent Group attendance: NA Were meds taken: Yes Any med S/E: None observed or reported Mental Status Exam Appearance: Appropriately dressed in person attire Eye contact: Good Behavior: Pleasant and cooperative, self-isolative Speech: Clear, mumbles/stutters at times, minimal Mood: Euthymic Affect: Pleasant Thought process: Linear, fixed delusions Thought Content: Meeting needs Cognition: A&O x3 Insight: Poor Judgment: Poor Interventions PRN's used: Nicotine Lozenge Therapeutic interventions: Maintained a safe and supportive environment, provided clear and simple instructions, therapeutic communication, active listening, medication administration/education/monitoring, encouragement to attend groups, provided distraction, attempted reality orientation, provided positive reinforcement, and maintained Q15 minute safety checks. Restraints/seclusion/emergency medication: NA Justification of Continued Inpatient Treatment: Pt continues to be gravely disabled, he is unable to formulate a viable plan for food, clothing, and care home. He came to us from [facility] here on a Short [place], [facility] is discussing an LPS referral.
[2021-08-13] MEDS: NICOTINE POLACRILEX 2 MG LOZENGE BC PRN ×4 (07:52→20:20)
[2021-08-13] MEDS: propranolol 10mg tablet PO SCH ×2 (07:52→20:20)
[2021-08-13] MEDS: multivitamins, therapeutics tablet PO SCH (07:52)
[2021-08-13] MEDS: atorvastatin 20mg tablet PO SCH (07:52)
[2021-08-13] MEDS: OLANZAPINE 5 MG TABLET PO SCH ×2 (07:52→12:48)
[2021-08-13] MEDS: nicotine 21mg patch - 24 hr TD SCH (07:52)
[2021-08-13 08:00] VITALS: BP 136/95
--- NOTE | 2021-08-13 16:15 | NUR ---
Nursing Progress Note: Jerardo Legal hold: T-Con Client on involuntary status for GD Report received from ELLYN Dave, with use of SBAR Why they are here: Pt was placed on a 5150 in [facility]. Pt appeared to be disheveled, was hungry, and dehydrated. He is unable to provide a viable plan for food, clothing, or senior living. Assessment What has happened this shift: Patient received sleeping in his room at shift change. He joined in the group room for breakfast this morning. Patient was receptive to scheduled medication and 1:1 assessment. He continues to present as quiet, reserved, and cooperative with care. Patient denies SI/HI, AH or VH. However, patient appears to be responding to internal stimuli throughout the shift. Patient endorsed to this contract technical writer that he was brought here by accident from [place]. Patient stating that security guards brought him here even though he was supposed to go to a medical facility. Patient continues to endorse being in the [employer] Witness Protection Program. Patient also endorsing that he served in the [place] War and Third World War. He continues to present as quiet and self-isolative. Patient only communicates with staff when asking for food, coffee, or Nicotine Lozenges. He was active on the unit throughout the day. Patient observed participating for all meal and snack times in the group room today. S/I, H/I: Denies A/VH: Denies, however, appears to be responding to IS Sleep: Refer to sleep hours. No naps noted on this shift. ADL's: Independent Group attendance: N/A Were meds taken: Yes Any med S/E: None observed or reported Mental Status Exam Appearance: Disheveled man with balding hair, wearing blue jeans and salinas sweat shirt. Eye contact: Fair, unable to maintain eye contact. Behavior: Pleasant, isolative Speech: Mumbles at times. Repeatedly stutters when answering questions. Poverty of speech. Mood: Euthymic Affect: Pleasant Thought process: Delusional (with fixed delusion), disorganized Thought Content: Being in the witness protection program. Meeting needs. Cognition: A&O x3 Insight: Poor Judgment: Poor Interventions PRN's used: Nicotine Lozenges Therapeutic interventions: Maintained a safe and supportive environment, provided clear and simple instructions, therapeutic communication, active listening, medication administration/education/monitoring, encouragement to attend groups, provided distraction, attempted reality orientation, provided positive reinforcement, and maintained Q15 minute safety checks. Restraints/seclusion/emergency medication: NA Justification of Continued Inpatient Treatment: Pt continues to be gravely disabled, he is unable to formulate a viable plan for food, clothing, and senior living. He came to us from [facility] here on a Short [place], [facility] placed patient on a Temporary Conservatorship.
[2021-08-13 19:30] VITALS: BP 131/90
[2021-08-13] MEDS: olanzapine 10mg tablet PO SCH (20:20)
--- NOTE | 2021-08-14 00:17 | NUR ---
Nursing Progress Note Legal hold: T-CON Report received from Martinez Dayshift enamel applier Why they are here: Pt was placed on a 5150 in [facility]. Pt appeared to be disheveled, was hungry, and dehydrated. He is unable to provide a viable plan for food, clothing, or mcfp. Assessment What has happened this shift: The patient was up in the hallway at times pacing up and down. Occasionally could be observed talking to himself. One to one with the patient to assess for severity of mental health symptoms. The patient was pleasant and cooperative when approached for the evening assessment in his room. His personal living space was poorly organized and untidy. He also appeared disheveled with his hair uncombed. He did appear clean and stated that he planned to shower in the am. The patient gave disorganized replies to the assessment questions. He stated that "I'm not suffering from any mental illness" He then went on to ramble in a disorganized manner about the [employer] and being on the witness protection and the mafia. His insight and judgement is poor. He denies A/V hallucinations. He denies thoughts to harm himself or others. He is medication compliant. His behavior has not required any redirection or increased supervision from staff. Justification of Continued Inpatient Treatment: The patient's delusional beliefs impact his ability to provide any kind of rational plan for food, mcfp or clothing if he were to leave the safety and structure of the inpatient unit. He is on a T-CON and placement is being sought for him.
[2021-08-14 07:35] VITALS: BP 125/91
[2021-08-14] MEDS: nicotine 21mg patch - 24 hr TD SCH (07:43)
[2021-08-14] MEDS: atorvastatin 20mg tablet PO SCH (07:43)
[2021-08-14] MEDS: propranolol 10mg tablet PO SCH ×2 (07:43→20:00)
[2021-08-14] MEDS: multivitamins, therapeutics tablet PO SCH (07:43)
[2021-08-14] MEDS: OLANZAPINE 5 MG TABLET PO SCH ×2 (07:45→13:00)
[2021-08-14] MEDS: NICOTINE POLACRILEX 2 MG LOZENGE BC PRN ×4 (07:49→18:08)
--- NOTE | 2021-08-14 17:32 | NUR ---
Nursing Progress Note Legal hold: T-Con Client on involuntary status for GD Report received from ELLYN Dave, with use of SBAR Why they are here: Pt was placed on a 5150 in [facility]. Pt appeared to be disheveled, was hungry, and dehydrated. He is unable to provide a viable plan for food, clothing, or mcfp. Assessment What has happened this shift: Received patient while he was sleeping in bed. Patient was out of bed and standing in line in front of the kitchen door. Saw patient standing down by the kitchen, but it was too early for coffee. Walked down and spoke with patient and gave him decaf coffee. Patient started ambulated around and around the length of the hallway. Patient would stop and rest in his room and drink his coffee, then continue to ambulate around the hallways again. Patient reports Im doing well today. Patient went to the Community Room at approximately 0745 for breakfast, and waited for it to be served. Patient ate his breakfast then continued to ambulate once again. Patient took a brief morning nap. Patient then got up and showered then returned to the Community Room for short periods of time watching a movie that others were watching. Patient ate lunch in the Community Room, then returned to his room after lunch to relax and take another nap. Patient woke up and came out to the hallway at 1645 and requested a Nicotine Lozenge. S/I, H/I: Denies A/VH: Denies, however, appears to be responding to IS Sleep: Refer to sleep hours. No naps noted on this shift. ADL's: Independent Group attendance: N/A Were meds taken: Yes, without hesitation. Any med S/E: None observed or reported Mental Status Exam Appearance: Disheveled man with balding hair, wearing blue jeans and salinas sweat shirt. Eye contact: Fair, improving at times, but continues to look down at the floor while speaking to Staff members. Behavior: Pleasant, isolative Speech: Mumbles at times. Repeatedly stutters when answering questions. Mood: Euthymic Affect: Pleasant Thought process: Meeting Own Needs. Thought Content: Meeting Own Needs. Cognition: A&O x3 Insight: Poor Judgment: Poor Interventions PRN's used: Nicotine Lozenges Therapeutic interventions: Maintained a safe and supportive environment, provided clear and simple instructions, therapeutic communication, active listening, medication administration/education/monitoring, encouragement to attend groups, provided distraction, attempted reality orientation, provided positive reinforcement, and maintained Q15 minute safety checks. Restraints/seclusion/emergency medication: NA Justification of Continued Inpatient Treatment: Pt continues to be gravely disabled, he is unable to formulate a viable plan for food, clothing, and mcfp. He came to us from [facility] here on a [place], [facility] placed patient on a Temporary Conservatorship.
[2021-08-14 19:00] VITALS: BP 99/68
[2021-08-14] MEDS: olanzapine 10mg tablet PO SCH (20:14)
[2021-08-15] MEDS: NICOTINE POLACRILEX 2 MG LOZENGE BC PRN ×6 (01:48→22:40)
--- NOTE | 2021-08-15 04:25 | NUR ---
Nursing Progress Note: Legal hold: TCon Client on involuntary status for GD Report received from Gilma REYNOLDS, with use of SBAR Why they are here: Pt was placed on a 5150 in [facility]. Pt appeared to be disheveled, was hungry, and dehydrated. He is unable to provide a viable plan for food, clothing, or penitentiary. Assessment What has happened this shift: Patient laying in bed awake at the beginning of shift. Pleasant and cooperative with care; compliant with medication. Propranolol held this shift as SBP did not meet parameters. Nicotine lozenge provided and patch removed. Patient denies SI, HI, A/VH. Patient explained that witness protection is finding him a secure location to live. He participated in HS snack and promptly returned to bed; observed sleeping and does not appear to be having difficulty. S/I, H/I: Denies A/VH: Denies Sleep: Refer to sleep assessment ADL's: Independent Group attendance: NA Were meds taken: Yes Any med S/E: None observed or reported Mental Status Exam Appearance: Appropriately dressed in person attire Eye contact: Good Behavior: Pleasant and cooperative, self-isolative Speech: Clear, mumbles/stutters at times, minimal Mood: Euthymic Affect: Pleasant Thought process: Linear, fixed delusions Thought Content: Meeting needs Cognition: A&O x3 Insight: Poor Judgment: Poor Interventions PRN's used: Nicotine Lozenge Therapeutic interventions: Maintained a safe and supportive environment, provided clear and simple instructions, therapeutic communication, active listening, medication administration/education/monitoring, encouragement to attend groups, provided distraction, attempted reality orientation, provided positive reinforcement, and maintained Q15 minute safety checks. Restraints/seclusion/emergency medication: NA Justification of Continued Inpatient Treatment: Pt continues to be gravely disabled, he is unable to formulate a viable plan for food, clothing, and penitentiary. He came to us from [facility] here on a [place], [facility] is discussing an LPS referral.
[2021-08-15 07:48] VITALS: BP 135/84
[2021-08-15] MEDS: nicotine 21mg patch - 24 hr TD SCH (08:32)
[2021-08-15] MEDS: propranolol 10mg tablet PO SCH ×2 (08:32→20:32)
[2021-08-15] MEDS: OLANZAPINE 5 MG TABLET PO SCH ×2 (08:33→12:28)
[2021-08-15] MEDS: multivitamins, therapeutics tablet PO SCH (08:33)
[2021-08-15] MEDS: atorvastatin 20mg tablet PO SCH (08:33)
[2021-08-15] MEDS: LORazepam 1 MG tablet PO PRN (08:56)
--- NOTE | 2021-08-15 17:13 | NUR ---
Nursing Progress Note Legal hold: T-Con Client on involuntary status for GD Report received from ELLYN Gill, with use of SBAR Why they are here: Pt was placed on a 5150 in [facility]. Pt appeared to be disheveled, was hungry, and dehydrated. He is unable to provide a viable plan for food, clothing, or correction. Assessment What has happened this shift: Received patient while he was out in the hallway walking up and down both sides of each hager. Patient requested Coffee as soon as he made eye contact at 0625. Informed the patient that they would be serving coffee at 0700 by the kitchen door where the sign is located. Patient asked for Nicotine Lozenges throughout the day. Patient ate his breakfast in the Community Room, then returned to pacing back and forth in the hallway. Patient was informed that it would take a little longer for him to receive his AM medications d/t being down a computer that can scan medications. Patient walked up to the door of the TV Room six times within 3 minutes, being told each time that I will find him to administer his medications when I am done scanning the medications. Patient continued to walk a lap around the hallway. Patient asked the same half dozens of time for coffee this morning, after being told that coffee would be served at 1100. Gave patient an Ativan with good results. Patient was able to slow down a bit and was able to relax and take a nap. Patient ate his lunch in the Community Room, then returned back to his room to rest for the afternoon. Patient awoke at approximately 1630. S/I, H/I: Denies A/VH: Denies, however, appears to be responding to IS Sleep: 8.25 hours of sleep ADL's: Independent Group attendance: No Group Attendance Held Today Were meds taken: Yes, without hesitation. Any med S/E: None observed or reported Mental Status Exam Appearance: Disheveled man with balding hair, wearing blue jeans and salinas sweat shirt. Eye contact: Fair, improving at times, but continues to look down at the floor while speaking to Staff members. Behavior: Pleasant, isolative Speech: Mumbles at times. Repeatedly stutters when answering questions. Mood: Euthymic Affect: Pleasant Thought process: Meeting Own Needs. Thought Content: Meeting Own Needs. Cognition: A&O x3 Insight: Poor Judgment: Poor Interventions PRN's used: Ativan & Nicotine Lozenges Therapeutic interventions: Maintained a safe and supportive environment, provided clear and simple instructions, therapeutic communication, active listening, medication administration/education/monitoring, encouragement to attend groups, provided distraction, attempted reality orientation, provided positive reinforcement, and maintained Q15 minute safety checks. Restraints/seclusion/emergency medication: NA Justification of Continued Inpatient Treatment: Pt continues to be gravely disabled, he is unable to formulate a viable plan for food, clothing, and correction. He came to us from [facility] here on a [place], [facility] placed patient on a Temporary Conservatorship.
[2021-08-15 19:50] VITALS: BP 123/83
[2021-08-15] MEDS: olanzapine 10mg tablet PO SCH (20:32)
--- NOTE | 2021-08-16 04:15 | NUR ---
Nursing Progress Note: Legal hold: TCon Client on involuntary status for GD Report received from Juan RN with use of SBAR Why they are here: Pt was placed on a 5150 in [facility]. Pt appeared to be disheveled, was hungry, and dehydrated. He is unable to provide a viable plan for food, clothing, or halfway. Assessment What has happened this shift: Patient laying awake in bed at the beginning of shift. Pleasant and cooperative with care; compliant with medication. PRN Nicotine lozenge provided and patch removed. Patient denies MH Sx. He participated in HS snack and promptly returned to his room; only coming out to request coffee and Nicotine. Patient observed sleeping and does not appear to be having difficulty. S/I, H/I: Denies A/VH: Denies Sleep: Refer to sleep assessment ADL's: Independent Group attendance: NA Were meds taken: Yes Any med S/E: None observed or reported Mental Status Exam Appearance: Appropriately dressed in person attire Eye contact: Good Behavior: Pleasant and cooperative, self-isolative Speech: Clear, mumbles/stutters at times, minimal Mood: Euthymic Affect: Pleasant Thought process: Linear, fixed delusions Thought Content: Meeting needs Cognition: A&O x3 Insight: Poor Judgment: Poor Interventions PRN's used: Nicotine Lozenge Therapeutic interventions: Maintained a safe and supportive environment, provided clear and simple instructions, therapeutic communication, active listening, medication administration/education/monitoring, encouragement to attend groups, provided distraction, attempted reality orientation, provided positive reinforcement, and maintained Q15 minute safety checks. Restraints/seclusion/emergency medication: NA Justification of Continued Inpatient Treatment: Pt continues to be gravely disabled, he is unable to formulate a viable plan for food, clothing, and halfway. He came to us from [facility] here on a [place], [facility] is discussing an LPS referral.
[2021-08-16] MEDS: nicotine 21mg patch - 24 hr TD SCH (07:46)
[2021-08-16] MEDS: propranolol 10mg tablet PO SCH ×2 (07:46→20:05)
[2021-08-16] MEDS: multivitamins, therapeutics tablet PO SCH (07:46)
[2021-08-16] MEDS: OLANZAPINE 5 MG TABLET PO SCH ×2 (07:46→11:35)
[2021-08-16] MEDS: atorvastatin 20mg tablet PO SCH (07:46)
[2021-08-16 07:49] VITALS: BP 114/68
[2021-08-16] MEDS: NICOTINE POLACRILEX 2 MG LOZENGE BC PRN ×4 (08:09→16:08)
--- NOTE | 2021-08-16 14:35 | NUR ---
Nursing Progress Note Legal hold: T-Con Client on involuntary status for GD Report received from RN with use of SBAR Why are they here: Pt was placed on a 5150 in [facility]. Pt appeared to be disheveled, was hungry, and dehydrated. He is unable to provide a viable plan for food, clothing, or custodial. Assessment What has happened this shift: Received Pt sleeping in his room w/o distress at the beginning of the shift. Pt woke and was cooperative with vitals and AM assessments. Pt paced halls and asked for coffee in AM and throughout the day. Pt took AM meds w/o issue and ate meals well. Pt continues to use nicotine lozenges throughout the day and did not attend groups today. Pt pleasant and responds to limits appropriately. Jerardo denies MH Sxs. S/I, H/I: Pt denies A/VH: Pt denies, Talks to self in bed Sleep: None this shift ADL's: Independent Group attendance: No Were meds taken: Yes Any med S/E: None noted or reported Mental Status Exam Appearance: Casual in own clothes Eye contact: Good Behavior: Pleasant, cooperative Speech: Coherent Mood: Euthymic Affect: Animated Thought process: Fixed delusions/witness protection Thought Content: Does not want to be conserved Cognition: A/O X 2 Insight: Poor Judgment: Poor Interventions PRN's used: Nicotine Lozenges Therapeutic interventions: 1:1 assessment, maintained a safe and supportive environment, provided clear and simple instructions, therapeutic communication, active listening, medication administration/education/monitoring, encouragement to attend groups, provided distraction, redirection, attempted reality orientation, provided positive reinforcement, and maintained Q15 minute safety checks. Restraints/seclusion/emergency medication: N/A Justification of Continued Inpatient Treatment: Pt continues to be gravely disabled, he is unable to formulate a viable plan for food, clothing, and custodial. [facility] has Pt on T-Con.
[2021-08-16] MEDS: LORazepam 1 MG tablet PO PRN (16:08)
[2021-08-16 19:37] VITALS: BP 116/77
[2021-08-16] MEDS: olanzapine 10mg tablet PO SCH (20:05)
--- NOTE | 2021-08-17 05:03 | NUR ---
Nursing Progress Note: Legal hold: TCon Client on involuntary status for GD Report received from GAIL Dillard with use of SBAR Why they are here: Pt was placed on a 5150 in [facility]. Pt appeared to be disheveled, was hungry, and dehydrated. He is unable to provide a viable plan for food, clothing, or intermediate. Assessment What has happened this shift: Patient laying awake in bed at the beginning of shift. Pleasant and cooperative with care; compliant with medication. PRN Nicotine lozenge provided and patch removed. Patient denies MH Sx. He continues to seek out coffee and Nicotine while he's awake. Patient participated in HS snack and returned to his room; observed sleeping and does not appear to be having difficulty. S/I, H/I: Denies A/VH: Denies Sleep: Refer to sleep assessment ADL's: Independent Group attendance: NA Were meds taken: Yes Any med S/E: None observed or reported Mental Status Exam Appearance: Appropriately dressed in person attire Eye contact: Good Behavior: Pleasant and cooperative, self-isolative Speech: Clear, mumbles/stutters at times, minimal Mood: Euthymic Affect: Pleasant Thought process: Linear, fixed delusions Thought Content: Meeting needs Cognition: A&O x3 Insight: Poor Judgment: Poor Interventions PRN's used: Nicotine Lozenge Therapeutic interventions: Maintained a safe and supportive environment, provided clear and simple instructions, therapeutic communication, active listening, medication administration/education/monitoring, encouragement to attend groups, provided distraction, attempted reality orientation, provided positive reinforcement, and maintained Q15 minute safety checks. Restraints/seclusion/emergency medication: NA Justification of Continued Inpatient Treatment: Pt continues to be gravely disabled, he is unable to formulate a viable plan for food, clothing, and intermediate. He came to us from [facility] here on a Short [place], [facility] is discussing an LPS referral.
[2021-08-17 07:38] VITALS: BP 131/93
[2021-08-17] MEDS: propranolol 10mg tablet PO SCH ×2 (07:57→20:14)
[2021-08-17] MEDS: multivitamins, therapeutics tablet PO SCH (07:57)
[2021-08-17] MEDS: OLANZAPINE 5 MG TABLET PO SCH ×2 (07:57→12:50)
[2021-08-17] MEDS: NICOTINE POLACRILEX 2 MG LOZENGE BC PRN ×4 (07:57→20:26)
[2021-08-17] MEDS: atorvastatin 20mg tablet PO SCH (07:57)
[2021-08-17] MEDS: nicotine 21mg patch - 24 hr TD SCH (07:58)
--- NOTE | 2021-08-17 10:31 | NUR ---
PLACEMENT UPDATE Jerardo is #3 on the wait-list at [facility]. AGUILAR Cloud
--- NOTE | 2021-08-17 13:25 | NUR ---
Scheduled a Zoom meeting with Ángela (ph# [phone] ext [phone]), court mortician investigator for [facility], at 11:30 AM on 08/18/21. Bridge Worker will assist. AGUILAR Cloud
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
[2021-08-17 20:00] VITALS: BP 134/91
[2021-08-17] MEDS: olanzapine 10mg tablet PO SCH (20:14)
--- NOTE | 2021-08-18 05:27 | NUR ---
Nursing Progress Note: Legal hold: TCon Client on involuntary status for GD Report received from Gilma REYNOLDS, with use of SBAR Why they are here: Pt was placed on a 5150 in [facility]. Pt appeared to be disheveled, was hungry, and dehydrated. He is unable to provide a viable plan for food, clothing, or halfway. Assessment What has happened this shift: Patient awake in his room at the beginning of shift. Pleasant and cooperative with care; compliant with medication. PRN Nicotine lozenge provided and patch removed. Patient denies SI, HI, A/VH; appears to be responding to IS. Patient participated in HS snack and promptly returned to his room. Patient observed sleeping and does not appear to be having difficulty. S/I, H/I: Denies A/VH: Denies; appear to be responding to IS Sleep: Refer to sleep assessment ADL's: Independent Group attendance: NA Were meds taken: Yes Any med S/E: None observed or reported Mental Status Exam Appearance: Appropriately dressed in person attire Eye contact: Good Behavior: Pleasant and cooperative, self-isolative Speech: Clear, mumbles/stutters at times, minimal Mood: Euthymic Affect: Pleasant Thought process: Linear, fixed delusions Thought Content: Meeting needs Cognition: A&O x3 Insight: Poor Judgment: Poor Interventions PRN's used: Nicotine Lozenge Therapeutic interventions: Maintained a safe and supportive environment, provided clear and simple instructions, therapeutic communication, active listening, medication administration/education/monitoring, encouragement to attend groups, provided distraction, attempted reality orientation, provided positive reinforcement, and maintained Q15 minute safety checks. Restraints/seclusion/emergency medication: NA Justification of Continued Inpatient Treatment: Pt continues to be gravely disabled, he is unable to formulate a viable plan for food, clothing, and halfway. He came to us from [facility] here on a Short [place], [facility] is discussing an LPS referral.
--- NOTE | 2021-08-18 07:11 | NUR ---
Reassessment: Pt continues eating well with mostly 100% PO intake on regular diet meeting estimated nutrient needs. [facility] 08/17. No nutrition intervention implemented at this time. Will continue to follow. Recommendations: 1. Continue regular diet 2. Bowel care per rx 3. Weekly scaled wts Addendum: 08/18/21 at [address] Amended: Links added.
[2021-08-18] MEDS: NICOTINE POLACRILEX 2 MG LOZENGE BC PRN ×6 (07:20→21:13)
[2021-08-18] MEDS: OLANZAPINE 5 MG TABLET PO SCH ×2 (07:41→12:13)
[2021-08-18] MEDS: nicotine 21mg patch - 24 hr TD SCH (07:41)
[2021-08-18] MEDS: multivitamins, therapeutics tablet PO SCH (07:41)
[2021-08-18] MEDS: atorvastatin 20mg tablet PO SCH (07:41)
[2021-08-18] MEDS: propranolol 10mg tablet PO SCH ×2 (07:44→20:09)
[2021-08-18 07:59] VITALS: BP 126/86
--- NOTE | 2021-08-18 12:08 | NUR ---
Assisted Jerardo with Zoom meeting with [facility] court forensic investigator. He had difficulty answering questions and rambled on and on about unrelated subjects. He eventually got up and left the meeting before she was able to ask all her questions. He has court on 08/29/21. AGUILAR Cloud
--- NOTE | 2021-08-18 16:02 | NUR ---
Nursing Progress Note: Jerardo Legal hold: T-Con Client on involuntary status for GD Report received from ELLYN Velasquez, with use of SBAR Why they are here: Pt was placed on a 5150 in [facility]. Pt appeared to be disheveled, was hungry, and dehydrated. He is unable to provide a viable plan for food, clothing, or fci. Assessment What has happened this shift: Patient received walking around the unit at shift change. He approached this repairer typewriter asking for a PRN Nicotine lozenge. He was receptive to scheduled medication and 1:1 assessment. Patient joined in the group room for breakfast this morning. He was observed walking around the unit after, asking for coffee. Patient endorsed that he has never been in the mental health system and was brought here for medical warfare destruction. He continues to deny all mental health symptoms. He continues to present as quiet, reserved, and cooperative with care. He is observed responding to internal stimuli throughout the shift. Patient noted endorsing that he doesnt believe in the database and is here for [employer]. He is noted pacing the hallway, talking quietly to himself throughout the day. Patient continues endorsing that he wants to get out of here and does not want to be conserved. Patient continues to only communicate when asking for coffee, Nicotine Lozenges, or getting a specific need met. He was noted to be active on the unit, pacing the hallway throughout the shift. He participated for all meal and snack times in the group room. S/I, H/I: Denies A/VH: Denies, however, is observed talking to self Sleep: Refer to sleep hours. No naps noted on this shift. ADL's: Independent Group attendance: No Were meds taken: Yes Any med S/E: None observed or reported Mental Status Exam Appearance: Disheveled man with balding hair, wearing blue jeans and salinas sweat shirt. Eye contact: Fair, unable to maintain eye contact. Behavior: Pleasant, isolative, cooperative Speech: Mumbles at times. Repeatedly stutters when answering questions. Poverty of speech. Mood: Euthymic Affect: Animated during interaction Thought process: Delusional (with fixed delusion), disorganized Thought Content: Being in the witness protection program. Wanting to discharge. Cognition: A&O x3 Insight: Poor Judgment: Poor Interventions PRN's used: Nicotine Lozenges Therapeutic interventions: Maintained a safe and supportive environment, provided clear and simple instructions, therapeutic communication, active listening, medication administration/education/monitoring, encouragement to attend groups, provided distraction, attempted reality orientation, provided positive reinforcement, and maintained Q15 minute safety checks. Restraints/seclusion/emergency medication: N/A Justification of Continued Inpatient Treatment: Pt continues to be gravely disabled, he is unable to formulate a viable plan for food, clothing, and fci. He came to us from [facility] here on a Short [place], [facility] placed patient on a Temporary Conservatorship.
[2021-08-18 20:00] VITALS: BP 120/90
[2021-08-18] MEDS: olanzapine 10mg tablet PO SCH (20:09)
--- NOTE | 2021-08-19 02:43 | NUR ---
Nursing Progress Note: Jerardo Legal hold: T-Con Client on involuntary status for GD Report received from ELLYN Henriquez, with use of SBAR Why they are here: Pt was placed on a 5150 in [facility]. Pt appeared to be disheveled, was hungry, and dehydrated. He is unable to provide a viable plan for food, clothing, or long term. Assessment What has happened this shift: Patient pacing the unit at change of shift. Pleasant and cooperative with care; compliant with medication. PRN Nicotine lozenge provided and patch removed. Patient denies SI, HI, A/VH; appears to be responding to IS. Patient participated in HS snack and promptly returned to his room. Pt resting comfortably in bed and has no needs at this time. S/I, H/I: Denies A/VH: Denies, however, is observed talking to self Sleep: ADL's: Independent Group attendance: No Were meds taken: Yes Any med S/E: None observed or reported Mental Status Exam Appearance: Disheveled man with balding hair, wearing blue jeans and salinas sweat shirt. Eye contact: Fair, unable to maintain eye contact. Behavior: Pleasant, isolative, cooperative Speech: Mumbles at times. Repeatedly stutters when answering questions. Poverty of speech. Mood: Euthymic Affect: Animated during interaction Thought process: Delusional (with fixed delusion), disorganized Thought Content: Being in the witness protection program. Wanting to discharge. Cognition: A&O x3 Insight: Poor Judgment: Poor Interventions PRN's used: Nicotine Lozenges Therapeutic interventions: Maintained a safe and supportive environment, provided clear and simple instructions, therapeutic communication, active listening, medication administration/education/monitoring, encouragement to attend groups, provided distraction, attempted reality orientation, provided positive reinforcement, and maintained Q15 minute safety checks. Restraints/seclusion/emergency medication: N/A Justification of Continued Inpatient Treatment: Pt continues to be gravely disabled, he is unable to formulate a viable plan for food, clothing, and long term. He came to us from [facility] here on a Short [place], [facility] placed patient on a Temporary Conservatorship.
[2021-08-19] MEDS: atorvastatin 20mg tablet PO SCH (07:21)
[2021-08-19] MEDS: OLANZAPINE 5 MG TABLET PO SCH ×2 (07:22→12:20)
[2021-08-19] MEDS: nicotine 21mg patch - 24 hr TD SCH (07:22)
[2021-08-19] MEDS: multivitamins, therapeutics tablet PO SCH (07:23)
[2021-08-19] MEDS: propranolol 10mg tablet PO SCH ×2 (07:23→19:58)
[2021-08-19] MEDS: NICOTINE POLACRILEX 2 MG LOZENGE BC PRN ×4 (07:23→15:59)
[2021-08-19 08:00] VITALS: BP 150/95
--- NOTE | 2021-08-19 16:35 | NUR ---
Nursing Progress Note: Jerardo Legal hold: T-Con Client on involuntary status for GD Report received from ELLYN Seth, with use of SBAR Why they are here: Pt was placed on a 5150 in [facility]. Pt appeared to be disheveled, was hungry, and dehydrated. He is unable to provide a viable plan for food, clothing, or fpc. Assessment What has happened this shift: Patient received walking around the unit at change of shift noted asking for coffee. He joined in the group room for breakfast with peers. Patient was receptive to scheduled medication and 1:1 assessment. Patient continues to endorse delusions of being in the [employer] Witness Protection Program and being cleared for combat. He is noted walking around the unit throughout the shift observed responding to internal stimuli. He continues to deny all mental health symptoms. Patient noted endorsing concern over being placed on conservatorship and perseverating on discharge. He is noted pacing the hallway, talking quietly to himself throughout the day. He was noted to be active on the unit, pacing the hallway throughout the shift. Patient observed napping intermittently in his room. He participated for all meal and snack times in the group room. S/I, H/I: Denies A/VH: Denies, however, is observed talking to self Sleep: Pt slept 7.5 hours last night per NOC shift. Napped intermittently on this shift. ADL's: Independent Group attendance: No Were meds taken: Yes Any med S/E: None observed or reported Mental Status Exam Appearance: Disheveled man with balding hair, wearing blue jeans and [place] sweat shirt. Eye contact: Fair, unable to maintain eye contact. Behavior: Pleasant, isolative, cooperative Speech: Mumbles at times. Repeatedly stutters when answering questions. Mood: Euthymic Affect: Animated during interaction Thought process: Delusional (with fixed delusion), disorganized Thought Content: Being in the witness protection program. Wanting to discharge. Cognition: A&O x3 Insight: Poor Judgment: Poor Interventions PRN's used: Nicotine Lozenges Therapeutic interventions: Maintained a safe and supportive environment, provided clear and simple instructions, therapeutic communication, active listening, medication administration/education/monitoring, encouragement to attend groups, provided distraction, attempted reality orientation, provided positive reinforcement, and maintained Q15 minute safety checks. Restraints/seclusion/emergency medication: N/A Justification of Continued Inpatient Treatment: Pt continues to be gravely disabled, he is unable to formulate a viable plan for food, clothing, and fpc. He came to us from [facility] here on a Short [place], [facility] placed patient on a Temporary Conservatorship.
[2021-08-19] MEDS: olanzapine 10mg tablet PO SCH (19:59)
[2021-08-19 20:27] VITALS: BP 151/97
--- NOTE | 2021-08-20 03:08 | NUR ---
Nursing Progress Note: Jerardo Legal hold: T-Con Client on involuntary status for GD Report received from ELLYN Henriquez with use of SBAR Why they are here: Pt was placed on a 5150 in [facility]. Pt appeared to be disheveled, was hungry, and dehydrated. He is unable to provide a viable plan for food, clothing, or fdc. Assessment What has happened this shift: Patient is awake pacing the unit at the start of the shift. Some delusional thinking noted. Patient believes he is in the witness protection program. Denies any AH/ VH but appears to be responding to internal stimuli. Cooperative with 1:1 assessment and medication then goes to bed. S/I, H/I: Denies A/VH: Denies but appears to be responding to internal stimuli Sleep: See sleep assessment ADL's: Independent Group attendance: N/A Were meds taken: Yes Any med S/E: None observed or reported Mental Status Exam Appearance: Disheveled man with balding hair, wearing blue jeans and [place] sweat shirt. Eye contact: Fair Behavior: Cooperative, restless Speech: Mumbles at times. Repeatedly stutters when answering questions. Mood: Fine. Affect: Constricted Thought process: Fixed delusions Thought Content: Concerned about being conserved. Cognition: A&O x3 Insight: Poor Judgment: Poor Interventions PRN's used: Nicotine lozenge Therapeutic interventions: Maintained a safe and supportive environment, provided clear and simple instructions, therapeutic communication, active listening, medication administration/education/monitoring, encouragement to attend groups, provided distraction, attempted reality orientation, provided positive reinforcement, and maintained Q15 minute safety checks. Restraints/seclusion/emergency medication: N/A Justification of Continued Inpatient Treatment: Pt continues to be gravely disabled, he is unable to formulate a viable plan for food, clothing, and fdc. He came to us from [facility] here on a Short [place], [facility] placed patient on a Temporary Conservatorship.
[2021-08-20] MEDS: atorvastatin 20mg tablet PO SCH (07:33)
[2021-08-20] MEDS: multivitamins, therapeutics tablet PO SCH (07:33)
[2021-08-20] MEDS: propranolol 10mg tablet PO SCH ×2 (07:33→20:24)
[2021-08-20] MEDS: OLANZAPINE 5 MG TABLET PO SCH ×2 (07:34→11:59)
[2021-08-20] MEDS: nicotine 21mg patch - 24 hr TD SCH (07:34)
[2021-08-20] MEDS: NICOTINE POLACRILEX 2 MG LOZENGE BC PRN ×5 (07:34→20:26)
[2021-08-20 07:35] VITALS: BP 139/87
--- NOTE | 2021-08-20 14:57 | NUR ---
Nursing Progress Note Legal hold: T-Con Client on involuntary status for GD Report received from RN with use of SBAR Why are they here: Pt was placed on a 5150 in [facility]. Pt appeared to be disheveled, was hungry, and dehydrated. He is unable to provide a viable plan for food, clothing, or jail. Assessment What has happened this shift: Received Pt sleeping in his room w/o distress at the beginning of the shift. Pt woke and was cooperative with vitals and AM assessments. Pt pleasant and took AM meds w/o issue. Pt ate meals well and responded to limits r/t coffee well. Pt walked halls a bit and isolated to room when not walking. Jerardo continues to use his nicotine patch and ask for lozenges throughout the day. Pt denies MH Sxs and does not want to be conserved. S/I, H/I: Pt denies A/VH: Pt denies, Talks to self at times Sleep: None this shift ADL's: Independent Group attendance: No Were meds taken: Yes Any med S/E: None noted or reported Mental Status Exam Appearance: Casual in own clothes Eye contact: Good Behavior: Pleasant, cooperative Speech: Coherent Mood: Euthymic Affect: Congruent with mood Thought process: Fixed delusions/witness protection Thought Content: Does not want to be conserved Cognition: A/O X 2 Insight: Poor Judgment: Poor Interventions PRN's used: Nicotine Lozenges Therapeutic interventions: 1:1 assessment, maintained a safe and supportive environment, provided clear and simple instructions, therapeutic communication, active listening, medication administration/education/monitoring, encouragement to attend groups, provided distraction, redirection, attempted reality orientation, provided positive reinforcement, and maintained Q15 minute safety checks. Restraints/seclusion/emergency medication: N/A Justification of Continued Inpatient Treatment: Pt continues to be gravely disabled, he is unable to formulate a viable plan for food, clothing, and jail. [facility] has Pt on T-Con.
[2021-08-20 19:00] VITALS: BP 147/99
[2021-08-20] MEDS: olanzapine 10mg tablet PO SCH (20:24)
--- NOTE | 2021-08-21 04:40 | NUR ---
Nursing Progress Note: Legal hold: TCon Client on involuntary status for GD Report received from GAIL Henriquez with use of SBAR Why they are here: Pt was placed on a 5150 in [facility]. Pt appeared to be disheveled, was hungry, and dehydrated. He is unable to provide a viable plan for food, clothing, or chcf. Assessment What has happened this shift: Patient laying awake in bed at the beginning of shift. Pleasant and cooperative with care; compliant with medication. PRN Nicotine lozenge provided and patch removed. Patient denies MH Sx. He participated in HS snack and promptly returned to his room; only coming out to request coffee and Nicotine. Patient observed sleeping and does not appear to be having difficulty. S/I, H/I: Denies A/VH: Denies Sleep: Refer to sleep assessment ADL's: Independent Group attendance: NA Were meds taken: Yes Any med S/E: None observed or reported Mental Status Exam Appearance: Appropriately dressed in person attire Eye contact: Good Behavior: Pleasant and cooperative, self-isolative Speech: Clear, mumbles/stutters at times, minimal Mood: Euthymic Affect: Pleasant Thought process: Linear, fixed delusions Thought Content: Meeting needs Cognition: A&O x3 Insight: Poor Judgment: Poor Interventions PRN's used: Nicotine Lozenge Therapeutic interventions: Maintained a safe and supportive environment, provided clear and simple instructions, therapeutic communication, active listening, medication administration/education/monitoring, encouragement to attend groups, provided distraction, attempted reality orientation, provided positive reinforcement, and maintained Q15 minute safety checks. Restraints/seclusion/emergency medication: NA Justification of Continued Inpatient Treatment: Pt continues to be gravely disabled, he is unable to formulate a viable plan for food, clothing, and chcf. He came to us from [facility] here on a Short [place], [facility] is discussing an LPS referral.
[2021-08-21] MEDS: OLANZAPINE 5 MG TABLET PO SCH ×2 (07:28→12:41)
[2021-08-21] MEDS: propranolol 10mg tablet PO SCH ×2 (07:28→20:18)
[2021-08-21] MEDS: multivitamins, therapeutics tablet PO SCH (07:29)
[2021-08-21] MEDS: nicotine 21mg patch - 24 hr TD SCH (07:29)
[2021-08-21] MEDS: atorvastatin 20mg tablet PO SCH (07:29)
[2021-08-21 07:48] VITALS: BP 149/96
[2021-08-21] MEDS: NICOTINE POLACRILEX 2 MG LOZENGE BC PRN ×3 (09:47→17:11)
--- NOTE | 2021-08-21 14:40 | NUR ---
Nursing Progress Note: LUIS Legal hold: T-Con Client on involuntary status for GD Report received from GAIL Dugan with use of SBAR Why are they here: Pt was placed on a 5150 in [facility]. Pt appeared to be disheveled, was hungry, and dehydrated. He is unable to provide a viable plan for food, clothing, or residential. Assessment What has happened this shift: Received patient sleeping at shift change, noted rise and fall of chest. Pt wakes and asks for a cup of coffee. Pt was compliant with care and medication. Pt keeps to himself and paces hager or isolates to his room; which is his routine. No behaviors to report. Pt denies SI/HI, endorses intermittent AH. When asked how he is doing pt states just waiting to go. Marcela been cleared by the global court cases in [place], [place], [employer]. I have no debts and working on getting my finances together. Pt talked about [facility] housing. S/I, H/I: Pt denies both. A/VH: Intermittent AH. Talks to self often. Sleep: 8.25 hours per sleep assessment. No naps today. ADL's: Independent with prompting. Group attendance: No scheduled group today. Were meds taken: Yes, without issue. Any med S/E: None noted or reported Mental Status Exam Appearance: Looks older then stated age, disheveled, dressed in personal attire. Eye contact: Good Behavior: Isolative, paces hager, cooperative. Speech: Soft, disorganized Mood: Euthymic Affect: Congruent with mood Thought process: Fixed delusions/government related. Thought Content: Does not want to be conserved. Cognition: A/O X 2 Insight: Poor Judgment: Poor Interventions PRN's used: Nicotine Lozenge Therapeutic interventions: 1:1 assessment, maintained a safe and supportive environment, provided clear and simple instructions, therapeutic communication, active listening, medication administration/education/monitoring, encouragement to attend groups, provided distraction, redirection, attempted reality orientation, provided positive reinforcement, and maintained Q15 minute safety checks. Restraints/seclusion/emergency medication: N/A Justification of Continued Inpatient Treatment: Pt continues to be gravely disabled, he is unable to formulate a viable plan for food, clothing, and residential. [facility] has patient on TCON.
[2021-08-21 19:43] VITALS: BP 130/93
[2021-08-21] MEDS: olanzapine 10mg tablet PO SCH (20:18)
--- NOTE | 2021-08-22 02:43 | NUR ---
Nursing Progress Note: Legal hold: T-Con Client on involuntary status for GD Report received from GAIL Henriquez with use of SBAR Why they are here: Pt was placed on a 5150 in [facility]. Pt appeared to be disheveled, was hungry, and dehydrated. He is unable to provide a viable plan for food, clothing, or prison. Assessment What has happened this shift: Patient seen in his bed at shift change. He tends to spend a lot of time on his bed. Patient comes out to pace or get nicotine lozenges. He denies any MH symptoms, but lays in his bed talking to himself. He comes out for snacks, especially coffee. Patient is cooperative with his medications, then goes back to bed. S/I, H/I: Denies A/VH: Denies, but talks to himself. Sleep: Refer to sleep assessment ADL's: Independent Group attendance: NA Were meds taken: Yes Any med S/E: None observed or reported Mental Status Exam Appearance: Disheveled, but appropriately dressed in personal attire. Eye contact: Good Behavior: Pleasant and cooperative, self-isolative Speech: Clear, mumbles/stutters at times, minimal Mood: Euthymic Affect: Pleasant Thought process: Linear, fixed delusions Thought Content: Meeting needs Cognition: A&O x3 Insight: Poor Judgment: Poor Interventions PRN's used: Nicotine Lozenge Therapeutic interventions: Maintained a safe and supportive environment, provided clear and simple instructions, therapeutic communication, active listening, medication administration/education/monitoring, encouragement to attend groups, provided distraction, attempted reality orientation, provided positive reinforcement, and maintained Q15 minute safety checks. Restraints/seclusion/emergency medication: NA Justification of Continued Inpatient Treatment: Pt continues to be gravely disabled, he is unable to formulate a viable plan for food, clothing, and prison. He came to us from [facility] here on a Short [place], [facility] is discussing an LPS referral.
[2021-08-22] MEDS: atorvastatin 20mg tablet PO SCH (07:30)
[2021-08-22] MEDS: multivitamins, therapeutics tablet PO SCH (07:31)
[2021-08-22] MEDS: OLANZAPINE 5 MG TABLET PO SCH ×2 (07:31→12:34)
[2021-08-22] MEDS: propranolol 10mg tablet PO SCH ×2 (07:31→20:14)
[2021-08-22] MEDS: nicotine 21mg patch - 24 hr TD SCH (07:32)
[2021-08-22 07:43] VITALS: BP 140/98
[2021-08-22] MEDS: NICOTINE POLACRILEX 2 MG LOZENGE BC PRN ×4 (08:07→20:00)
--- NOTE | 2021-08-22 14:30 | NUR ---
Nursing Progress Note: LUIS Legal hold: T-Con Client on involuntary status for GD Report received from GAIL Salinas with use of SBAR Why are they here: Pt was placed on a 5150 in [facility]. Pt appeared to be disheveled, was hungry, and dehydrated. He is unable to provide a viable plan for food, clothing, or halfway. Assessment What has happened this shift: Received patient sleeping at shift change, noted rise and fall of chest. Pt has routine of waking up before breakfast, requesting a cup of coffee the pacing hager. Pt continues to voice his desire to discharge. Pts BP has been trending up with a manual BP this morning of 140/98. Pt receives Propranolol 10mg BID. Endorsed to [place]. Pt napped in the afternoon and then was up again pacing unit. S/I, H/I: Pt denies both. A/VH: Intermittent AH. Talks to self often. Sleep: 8.0 hours per sleep assessment. No naps today. ADL's: Independent, pt showered today. Group attendance: Were meds taken: Yes, without issue. Any med S/E: None noted or reported Mental Status Exam Appearance: Looks older then stated age, disheveled, dressed in personal attire. Eye contact: Good Behavior: Isolative, paces hager, cooperative. Speech: Soft, disorganized Mood: Euthymic Affect: Congruent with mood Thought process: Fixed delusions/government related. Thought Content: Does not want to be conserved. Cognition: A/O X 2 Insight: Poor Judgment: Poor Interventions PRN's used: Nicotine Lozenge Therapeutic interventions: 1:1 assessment, maintained a safe and supportive environment, provided clear and simple instructions, therapeutic communication, active listening, medication administration/education/monitoring, encouragement to attend groups, provided distraction, redirection, attempted reality orientation, provided positive reinforcement, and maintained Q15 minute safety checks. Restraints/seclusion/emergency medication: N/A Justification of Continued Inpatient Treatment: Pt continues to be gravely disabled, he is unable to formulate a viable plan for food, clothing, and halfway. [facility] has patient on TCON.
[2021-08-22 19:53] VITALS: BP 133/88
[2021-08-22] MEDS: olanzapine 10mg tablet PO SCH (20:17)
--- NOTE | 2021-08-23 01:34 | NUR ---
Nursing Progress Note: Legal hold: T-Con Client on involuntary status for GD Report received from GAIL Henriquez with use of SBAR Why they are here: Pt was placed on a 5150 in [facility]. Pt appeared to be disheveled, was hungry, and dehydrated. He is unable to provide a viable plan for food, clothing, or penitentiary. Assessment What has happened this shift: Patient was seen at bedside for 1:1. "Got any coffee?" he asks as I talk to him. He's reminded that coffee will be at snack time. Patient is always polite and thankful. he spends most of the evening in his bed, but comes out occasionally to pace the hager and ask for coffee. He denies all MH symptoms, but is distracted by IS. He lets it be known his desire to discharge. S/I, H/I: Denies A/VH: Denies, but talks to himself. Sleep: Refer to sleep assessment ADL's: Independent Group attendance: NA Were meds taken: Yes Any med S/E: None observed or reported Mental Status Exam Appearance: Disheveled, but appropriately dressed in personal attire. Eye contact: Good Behavior: Pleasant and cooperative, self-isolative Speech: Clear, mumbles/stutters at times, minimal Mood: Euthymic Affect: Pleasant Thought process: Linear, fixed delusions Thought Content: Meeting needs Cognition: A&O x3 Insight: Poor Judgment: Poor Interventions PRN's used: Nicotine Lozenge Therapeutic interventions: Maintained a safe and supportive environment, provided clear and simple instructions, therapeutic communication, active listening, medication administration/education/monitoring, encouragement to attend groups, provided distraction, attempted reality orientation, provided positive reinforcement, and maintained Q15 minute safety checks. Restraints/seclusion/emergency medication: NA Justification of Continued Inpatient Treatment: Pt continues to be gravely disabled, he is unable to formulate a viable plan for food, clothing, and penitentiary. He came to us from [facility] here on a Short [place], [facility] is discussing an LPS referral.
[2021-08-23] MEDS: multivitamins, therapeutics tablet PO SCH (07:19)
[2021-08-23] MEDS: atorvastatin 20mg tablet PO SCH (07:19)
[2021-08-23] MEDS: OLANZAPINE 5 MG TABLET PO SCH ×2 (07:19→12:17)
[2021-08-23] MEDS: propranolol 10mg tablet PO SCH ×2 (07:19→20:03)
[2021-08-23] MEDS: nicotine 21mg patch - 24 hr TD SCH (07:19)
[2021-08-23] MEDS: NICOTINE POLACRILEX 2 MG LOZENGE BC PRN ×4 (07:40→18:31)
[2021-08-23 08:28] VITALS: BP 160/108
--- NOTE | 2021-08-23 14:11 | NUR ---
Nursing Progress Note Legal hold: T-Con Client on involuntary status for GD Report received from RN with use of SBAR Why are they here: Pt was placed on a 5150 in [facility]. Pt appeared to be disheveled, was hungry, and dehydrated. He is unable to provide a viable plan for food, clothing, or assisted. Assessment What has happened this shift: Received Pt sleeping in his room w/o distress at the beginning of the shift. Pt woke and was cooperative with vitals and AM assessments. Pt began walking halls early today. Jerardo remains pleasant and cooperative and polite with staff and other Pts. He ate meals well and always participates in snack times. Pt continues to deny MH sxs and wants be discharged w/o being conserved. Pt had no physical complaints or Sxs this shift. S/I, H/I: Pt denies A/VH: Pt denies, mumbles to self Sleep: None this shift ADL's: Independent Group attendance: No Were meds taken: Yes Any med S/E: None noted or reported Mental Status Exam Appearance: Casual in street clothes Eye contact: Good Behavior: Pleasant Speech: Coherent Mood: Euthymic Affect: Congruent with mood Thought process: Fixed delusions Thought Content: Does not want to be conserved Cognition: A/O X 2 Insight: Poor Judgment: Poor Interventions PRN's used: Nicotine Lozenges Therapeutic interventions: 1:1 assessment, maintained a safe and supportive environment, provided clear and simple instructions, therapeutic communication, active listening, medication administration/education/monitoring, encouragement to attend groups, provided distraction, redirection, attempted reality orientation, provided positive reinforcement, and maintained Q15 minute safety checks. Restraints/seclusion/emergency medication: N/A Justification of Continued Inpatient Treatment: Pt continues to be gravely disabled, he is unable to formulate a viable plan for food, clothing, and assisted. [facility] has Pt on T-Con.
[2021-08-23 20:00] VITALS: BP 118/76
[2021-08-23] MEDS: olanzapine 10mg tablet PO SCH (20:03)
--- NOTE | 2021-08-24 00:59 | NUR ---
Nursing Progress Note: Legal hold: T-Con Client on involuntary status for GD Report received from GAIL Henriquez with use of SBAR Why they are here: Pt was placed on a 5150 in [facility]. Pt appeared to be disheveled, was hungry, and dehydrated. He is unable to provide a viable plan for food, clothing, or halfway. Assessment What has happened this shift: The patient was seen pacing at shift change. If he's not pacing, he's on his bed. Patient is bored. Coffee is his major desire...and discharging. Patient is dirty and disheveled. Clothes are stained. He went to his room after pacing and napped until snack time, when he could get his coffee. He is compliant with medications. Speech is disorganized, with some stuttering occasionally. S/I, H/I: Denies A/VH: Denies, but talks to himself. Sleep: Refer to sleep assessment ADL's: Independent Group attendance: NA Were meds taken: Yes Any med S/E: None observed or reported Mental Status Exam Appearance: Disheveled, but appropriately dressed in personal attire. Eye contact: Good Behavior: Pleasant and cooperative, self-isolative Speech: Clear, mumbles/stutters at times, minimal Mood: Euthymic Affect: Pleasant Thought process: Linear, fixed delusions Thought Content: Meeting needs Cognition: A&O x3 Insight: Poor Judgment: Poor Interventions PRN's used: Nicotine Lozenge Therapeutic interventions: Maintained a safe and supportive environment, provided clear and simple instructions, therapeutic communication, active listening, medication administration/education/monitoring, encouragement to attend groups, provided distraction, attempted reality orientation, provided positive reinforcement, and maintained Q15 minute safety checks. Restraints/seclusion/emergency medication: NA Justification of Continued Inpatient Treatment: Pt continues to be gravely disabled, he is unable to formulate a viable plan for food, clothing, and halfway. He came to us from [facility] here on a Short [place], [facility] is discussing an LPS referral.
[2021-08-24] MEDS: OLANZAPINE 5 MG TABLET PO SCH ×2 (07:15→12:22)
[2021-08-24] MEDS: atorvastatin 20mg tablet PO SCH (07:15)
[2021-08-24] MEDS: multivitamins, therapeutics tablet PO SCH (07:15)
[2021-08-24] MEDS: propranolol 10mg tablet PO SCH ×2 (07:15→20:26)
[2021-08-24] MEDS: nicotine 21mg patch - 24 hr TD SCH (07:16)
[2021-08-24 07:37] VITALS: BP 182/132
[2021-08-24] MEDS: NICOTINE POLACRILEX 2 MG LOZENGE BC PRN ×5 (08:10→20:41)
--- NOTE | 2021-08-24 15:39 | NUR ---
Nursing Progress Note: Jerardo Legal hold: T-Con Client on involuntary status for GD Report received from GAIL Cason with use of SBAR Why they are here: Pt was placed on a 5150 in [facility]. Pt appeared to be disheveled, was hungry, and dehydrated. He is unable to provide a viable plan for food, clothing, or snf. Assessment What has happened this shift: Patient is resting quietly in bed at the start of the shift. Awake prior to breakfast pacing the unit and drinking coffee. Blood pressure is elevated in the morning but is rechecked and is 158/94. Cooperative with 1:1 assessment and medications. Perseverates on wanting coffee even after drinking several cups. Patient is reminded of snack times and is easily redirected. Denies any mental health symptoms but does appear internally occupied and is noted mumbling to himself. S/I, H/I: Denies A/VH: Denies but appears internally occupied. Sleep: 0.5 hours in the morning. ADL's: Independent Group attendance: No Were meds taken: Yes Any med S/E: None observed or reported Mental Status Exam Appearance: Older appearing man, neat, wearing casual personal attire. Eye contact: Fair Behavior: Cooperative, pleasant Speech: Mumbled, soft, minimal Mood: Ok. Affect: Constricted Thought process: Fixed delusions Thought Content: Perseverates on coffee Cognition: A/O X [address] Insight: Poor Judgment: Poor Interventions PRN's used: nicotine lozenge Therapeutic interventions: 1:1 assessment, maintained a safe and supportive environment, provided clear and simple instructions, therapeutic communication, active listening, medication administration/education/monitoring, encouragement to attend groups, provided distraction, redirection, attempted reality orientation, provided positive reinforcement, and maintained Q15 minute safety checks. Restraints/seclusion/emergency medication: N/A Justification of Continued Inpatient Treatment: Pt continues to be gravely disabled, he is unable to formulate a viable plan for food, clothing, and snf. [facility] has Pt on T-Con.
[2021-08-24] MEDS: olanzapine 10mg tablet PO SCH (20:25)
[2021-08-24 20:32] VITALS: BP 132/90
--- NOTE | 2021-08-25 03:12 | NUR ---
Nursing Progress Note: Jerardo Legal hold: T-Con Client on involuntary status for GD Report received from GAIL Dillard with use of SBAR Why they are here: Pt was placed on a 5150 in [facility]. Pt appeared to be disheveled, was hungry, and dehydrated. He is unable to provide a viable plan for food, clothing, or group home. Assessment What has happened this shift: Patient was found pacing around unit at beginning of shift. Patient was repetitive in asking for nicotine lozenges. Patient continued to pace until snack time. Patient participated in snack time and went to bed. Patient had to be awaken to give night medications and patient again requested a nicotine lozenge. S/I, H/I: Denies A/VH: Denies Sleep: See sleep assessment ADL's: Independent Group attendance: No Were meds taken: Yes Any med S/E: None observed or reported Mental Status Exam Appearance: Older appearing man, disheveled, wearing casual personal attire. Eye contact: Fair Behavior: Cooperative, pleasant Speech: Mumbled, soft, minimal Mood: Ok. Affect: Constricted Thought process: Fixed delusions Thought Content: regularly asking for lozenges Cognition: A/O X [address] Insight: Poor Judgment: Poor Interventions PRN's used: nicotine lozenge Therapeutic interventions: 1:1 assessment, maintained a safe and supportive environment, provided clear and simple instructions, therapeutic communication, active listening, medication administration/education/monitoring, encouragement to attend groups, provided distraction, redirection, attempted reality orientation, provided positive reinforcement, and maintained Q15 minute safety checks. Restraints/seclusion/emergency medication: N/A Justification of Continued Inpatient Treatment: Pt continues to be gravely disabled, he is unable to formulate a viable plan for food, clothing, and group home. [facility] has Pt on T-Con.
--- NOTE | 2021-08-25 07:19 | NUR ---
Reassessment: Pt continues eating well with mostly 100% PO intake on regular diet meeting estimated nutrient needs. [facility] 08/23. No nutrition intervention implemented at this time. Will continue to follow. Recommendations: 1. Continue regular diet 2. Bowel care per rx 3. Weekly scaled wts Addendum: 08/25/21 at [address] Amended: Links added.
[2021-08-25] MEDS: propranolol 10mg tablet PO SCH ×2 (07:25→20:17)
[2021-08-25] MEDS: OLANZAPINE 5 MG TABLET PO SCH ×2 (07:25→12:48)
[2021-08-25] MEDS: multivitamins, therapeutics tablet PO SCH (07:25)
[2021-08-25] MEDS: atorvastatin 20mg tablet PO SCH (07:25)
[2021-08-25] MEDS: nicotine 21mg patch - 24 hr TD SCH (07:27)
[2021-08-25] MEDS: NICOTINE POLACRILEX 2 MG LOZENGE BC PRN ×5 (07:36→20:21)
[2021-08-25 07:39] VITALS: BP 135/91
[2021-08-25 08:35] LABS: BASOPHILS # (AUTO) 0.1 X10'3 (0-0.2); BASOPHILS % (AUTO) 1.1 % (0-1); EOSINOPHILS # (AUTO) 0.1 X10'3 (0-0.9); EOSINOPHILS % (AUTO) 2.2 % (0-6); HEMATOCRIT 42.5 % (42.0-52.0); HEMOGLOBIN 14.3 g/dl (14.0-17.9); LYMPHOCYTES # (AUTO) 1.5 X10'3 (1.1-4.8); LYMPHOCYTES % (AUTO) 22.9 % (21-51); MEAN CORPUSCULAR HEMOGLOBIN 30.9 PG (27.0-31.0); MEAN CORPUSCULAR HGB CONC 33.6 g/dL (33.0-36.5); MEAN CORPUSCULAR VOLUME 92.1 FL (78-98); MEAN PLATELET VOLUME 6.4 FL (7.4-10.4); MONOCYTES # (AUTO) 0.6 X10'3 (0-0.9); MONOCYTES % (AUTO) 8.7 % (2-12); NEUTROPHILS # (AUTO) 4.3 X10'3 (1.8-7.7); NEUTROPHILS % (AUTO) 65.1 % (42-75); PLATELET COUNT 256 X10'3 (140-440); RED BLOOD COUNT 4.62 X10'6 (4.70-6.10); RED CELL DISTRIBUTION WIDTH 13.5 % (11.5-14.5); WHITE BLOOD COUNT 6.5 X10'3 (4.5-11.0)
[2021-08-25 08:48] LABS: ALANINE AMINOTRANSFERASE 25 U/L (12-78); ALBUMIN 3.2 G/DL (3.4-5.0); ALBUMIN/GLOBULIN RATIO 0.8 (1.1-1.5); ALKALINE PHOSPHATASE 59 IU/L (46-116); ASPARTATE AMINO TRANSFERASE 15 U/L (10-37); BILIRUBIN,TOTAL 0.5 MG/DL (0.1-1.0); BLOOD UREA NITROGEN 14 MG/DL (7-18); BUN/CREATININE RATIO 14.7 (5.4-32.0); CALCIUM 8.6 MG/DL (8.5-10.1); CREATININE 0.95 MG/DL (0.60-1.10); GLUCOSE 179 MG/DL (70-104); TOTAL CARBON DIOXIDE 22.9 MMOL/L (24-32); TOTAL PROTEIN 7.3 G/DL (6.4-8.2); eGFR 81 ML/MIN
[2021-08-25 09:26] LABS: ANION GAP 12 (8-16); CHLORIDE 101 MMOL/L (99-107); POTASSIUM 4.5 MMOL/L (3.5-5.1); SODIUM 136 MMOL/L (135-145)
--- NOTE | 2021-08-25 16:39 | NUR ---
Nursing Progress Note: Jerardo Legal hold: T-Con Client on involuntary status for GD Report received from GAIL Velasquez with use of SBAR Why they are here: Pt was placed on a 5150 in [facility]. Pt appeared to be disheveled, was hungry, and dehydrated. He is unable to provide a viable plan for food, clothing, or snf. Assessment What has happened this shift: Pt. awake at start of shift and requesting coffee. Pt. took all medications and ate breakfast. 1:1 done at bedside, pt. denies all psych symptoms. Pt. is perseverative and states frequently, Marcela got a job to go back to. I have to get back to work. Pt. gives minimal information to RNs questions. S/I, H/I: Denies A/VH: Denies but appears internally occupied. Sleep: Pt. slept 7.25 hrs on NOC shift and does not appear to sleep during the day. ADL's: Independent Group attendance: NA Were meds taken: Yes Any med S/E: None observed or reported Mental Status Exam Appearance: Older appearing man, neat, wearing casual personal attire. Eye contact: WNL Behavior: Cooperative, pleasant Speech: Mumbled, soft, minimal Mood: Anxious Affect: Constricted Thought process: Fixed delusions. Tangential Thought Content: Perseverates on coffee and need for discharge to go back to work Cognition: A/O X 3 (Not to circumstance) Insight: Poor Judgment: Poor Interventions PRN's used: nicotine lozenge Therapeutic interventions: 1:1 assessment, maintained a safe and supportive environment, provided clear and simple instructions, therapeutic communication, active listening, medication administration/education/monitoring, encouragement to attend groups, provided distraction, redirection, attempted reality orientation, provided positive reinforcement, and maintained Q15 minute safety checks. Restraints/seclusion/emergency medication: N/A Justification of Continued Inpatient Treatment: Pt continues to be gravely disabled, he is unable to formulate a viable plan for food, clothing, and snf. [facility] has Pt on T-Con
[2021-08-25 19:00] VITALS: BP 126/85
[2021-08-25] MEDS: olanzapine 10mg tablet PO SCH (20:17)
--- NOTE | 2021-08-26 02:13 | NUR ---
Nursing Progress Note: Jerardo Legal hold: T-Con Client on involuntary status for GD Report received from GAIL Dillard with use of SBAR Admit note: Pt was placed on a 5150 in [facility]. Pt appeared to be disheveled, was hungry, and dehydrated. He is unable to provide a viable plan for food, clothing, or fpc. Assessment What happened this shift: Patient was observed sleeping in bed at change of shift. Patient continued to sleep until snack time. Patient participated in snacks and returned to his room. Patient took all night medications including prn nicotine lozenge.
[2021-08-26] MEDS: propranolol 10mg tablet PO SCH ×2 (07:41→20:36)
[2021-08-26] MEDS: multivitamins, therapeutics tablet PO SCH (07:41)
[2021-08-26] MEDS: atorvastatin 20mg tablet PO SCH (07:41)
[2021-08-26] MEDS: OLANZAPINE 5 MG TABLET PO SCH ×2 (07:41→12:38)
[2021-08-26] MEDS: nicotine 21mg patch - 24 hr TD SCH (07:42)
[2021-08-26] MEDS: NICOTINE POLACRILEX 2 MG LOZENGE BC PRN ×6 (07:47→21:58)
[2021-08-26 08:00] VITALS: BP 132/81
--- NOTE | 2021-08-26 17:57 | NUR ---
Nursing Progress Note: Legal hold: T-Con Client on involuntary status for GD Report received from Karina Lira RN with use of SBAR Why they are here: Pt was placed on a 5150 in [facility]. Pt appeared to be disheveled, was hungry, and dehydrated. He is unable to provide a viable plan for food, clothing, or penitentiary. Assessment What has happened this shift: Pt. awake at start of shift and requesting coffee. Pt. took all medications and ate breakfast. 1:1 done at bedside, pt. denies all psych symptoms. Pt. reports he has no mental illness. Pt. paces the hallway most of the day. Pt. asks if he will be discharged soon. S/I, H/I: Denies A/VH: Denies but appears internally occupied. Sleep: Pt. slept 7.25 hrs on NOC shift and does not appear to sleep during the day. ADL's: Independent Group attendance: NA Were meds taken: Yes Any med S/E: Denies. None observed. Mental Status Exam Appearance: Older appearing man, neat, wearing casual personal attire. Eye contact: WNL Behavior: Cooperative, pleasant Speech: Mumbled, soft, minimal Mood: Anxious Affect: Constricted Thought process: Fixed delusions. Tangential. Thought Content: Circumstantial. Cognition: A/O X 3 (Not to circumstance) Insight: Poor Judgment: Poor Interventions PRN's used: nicotine lozenge Therapeutic interventions: 1:1 assessment, maintained a safe and supportive environment, provided clear and simple instructions, therapeutic communication, active listening, medication administration/education/monitoring, encouragement to attend groups, provided distraction, redirection, attempted reality orientation, provided positive reinforcement, and maintained Q15 minute safety checks. Restraints/seclusion/emergency medication: N/A Justification of Continued Inpatient Treatment: Pt continues to be gravely disabled, he is unable to formulate a viable plan for food, clothing, and penitentiary. [facility] has Pt on T-Con
[2021-08-26 19:41] VITALS: BP 131/88
[2021-08-26] MEDS: olanzapine 10mg tablet PO SCH (20:36)
--- NOTE | 2021-08-26 22:26 | NUR ---
NURSING PROGRESS NOTE Legal: T-con Legal Status: T-con Reason For Admit: Pt was placed on a 5150 in [facility]. Pt appeared to be disheveled, was hungry, and dehydrated. He is unable to provide a viable plan for food, clothing, or assisted. What Happened This Shift: Pt isolates to self, is seen muttering to himself pleasantly. He is polite and only approaches staff to ask for nicotine lozenges. He is medication compliant. Discharge: Pt is on T-con with [facility].
[2021-08-27] MEDS: NICOTINE POLACRILEX 2 MG LOZENGE BC PRN ×5 (07:32→20:25)
[2021-08-27 07:33] VITALS: BP 119/76
[2021-08-27] MEDS: propranolol 10mg tablet PO SCH ×2 (07:33→20:25)
[2021-08-27] MEDS: multivitamins, therapeutics tablet PO SCH (07:33)
[2021-08-27] MEDS: nicotine 21mg patch - 24 hr TD SCH (07:33)
[2021-08-27] MEDS: atorvastatin 20mg tablet PO SCH (07:33)
[2021-08-27] MEDS: OLANZAPINE 5 MG TABLET PO SCH ×2 (07:34→11:42)
--- NOTE | 2021-08-27 16:42 | NUR ---
Nursing Progress Note: Jerardo Legal hold: T-Con Client on involuntary status for GD Report received from Karina Lira RN with use of SBAR Why they are here: Pt was placed on a 5150 in [facility]. Pt appeared to be disheveled, was hungry, and dehydrated. He is unable to provide a viable plan for food, clothing, or care home. Assessment What has happened this shift: Received pt. awake in the hager, he was receptive to medication and requested nicotine lozenge. Pt. denies Si, HI, and reports he was admitted d/t I was dropped off here for mental health and reports his future plans are to get myself situated and Im going to write a book for [employer] Pt. presents with more insight since our last encounter, but has delusions r/t the Government. Pt. ate his meals in the MDR with cohorts but often sits alone in a chair with his tray in his lap. Pt. presents as withdrawn from others and often is seen pacing the hager waiting for snack or req S/I, H/I: Denies A/VH: Denies but presents as internally occupied. Sleep: Pt. slept 8.25 hrs per NOC shift and no nap today. ADL's: Independent Group attendance: NA Were meds taken: Yes Any med S/E: Denies. None observed. Mental Status Exam Appearance: Older male, soiled hoodie and wearing street clothes. Eye contact: Good Behavior: Cooperative, pleasant Speech: Mumbled, soft, minimal Mood: Anxious Affect: Constricted Thought process: Tangential. Thought Content: Circumstantial. Cognition: A/O X 3 Insight: Poor Judgment: Poor Interventions PRN's used: Nicotine lozenges Therapeutic interventions: 1:1 assessment, maintained a safe and supportive environment, provided clear and simple instructions, therapeutic communication, active listening, medication administration/education/monitoring, encouragement to attend groups, provided distraction, redirection, attempted reality orientation, provided positive reinforcement, and maintained Q15 minute safety checks. Restraints/seclusion/emergency medication: N/A Justification of Continued Inpatient Treatment: Pt continues to be gravely disabled, he is unable to formulate a viable plan for food, clothing, and care home. [facility] has Pt on T-Con
[2021-08-27] MEDS: olanzapine 10mg tablet PO SCH (20:25)
[2021-08-27 21:00] VITALS: BP 133/88
--- NOTE | 2021-08-28 01:27 | NUR ---
Nursing Progress Note: Jerardo Legal hold: T-Con Client on involuntary status for GD Report received from Latia REYNOLDS with use of SBAR Why they are here: Pt was placed on a 5150 in [facility]. Pt appeared to be disheveled, was hungry, and dehydrated. He is unable to provide a viable plan for food, clothing, or retirement. Assessment What has happened this shift: Received pt pacing the hallway, states he is doing pretty good, asked for a nicotine lozenge. Pt calm, cooperative and friendly. Pt. denies Si, HI, up for snacks and medication compliant. Pt went to bed shortly after med pass. S/I, H/I: Denies A/VH: Denies but presents as internally occupied. Sleep: ADL's: Independent Group attendance: NA Were meds taken: Yes Any med S/E: Denies. None observed. Mental Status Exam Appearance: Older male, soiled hoodie and wearing street clothes. Eye contact: Good Behavior: Cooperative, pleasant Speech: Mumbled, soft, minimal Mood: Anxious Affect: Constricted Thought process: Tangential. Thought Content: Circumstantial. Cognition: A/O X 3 Insight: Poor Judgment: Poor Interventions PRN's used: Nicotine lozenges Therapeutic interventions: 1:1 assessment, maintained a safe and supportive environment, provided clear and simple instructions, therapeutic communication, active listening, medication administration/education/monitoring, encouragement to attend groups, provided distraction, redirection, attempted reality orientation, provided positive reinforcement, and maintained Q15 minute safety checks. Restraints/seclusion/emergency medication: N/A Justification of Continued Inpatient Treatment: Pt continues to be gravely disabled, he is unable to formulate a viable plan for food, clothing, and retirement. [facility] has Pt on T-Con
[2021-08-28] MEDS: multivitamins, therapeutics tablet PO SCH (07:17)
[2021-08-28] MEDS: propranolol 10mg tablet PO SCH ×2 (07:17→20:12)
[2021-08-28] MEDS: OLANZAPINE 5 MG TABLET PO SCH ×2 (07:17→12:40)
[2021-08-28] MEDS: atorvastatin 20mg tablet PO SCH (07:17)
[2021-08-28] MEDS: nicotine 21mg patch - 24 hr TD SCH (07:19)
[2021-08-28 07:44] VITALS: BP 157/105
[2021-08-28] MEDS ORDERED: lisinopril 10 MG tablet PO ONE (10:55)
--- NOTE | 2021-08-28 11:02 | NUR ---
Hospitalist notified this morning re hypertensive episode. N.O later received from provider Eze, Lisinopril 10mg PO Qday.
[2021-08-28] MEDS: NICOTINE POLACRILEX 2 MG LOZENGE BC PRN ×4 (11:50→20:14)
--- NOTE | 2021-08-28 16:31 | NUR ---
Nursing Progress Note: Jerardo Legal hold: T-Con Client on involuntary status for GD Report received from Karina Lira RN with use of SBAR Why they are here: Pt was placed on a 5150 in [facility]. Pt appeared to be disheveled, was hungry, and dehydrated. He is unable to provide a viable plan for food, clothing, or detention. Assessment What has happened this shift: Received pt. awake in the hager, 1:1 assessment completed at the bedside, he denies SI, HI and presents as optimistic about his future plans reporting Im going to find a place, I like writing Pt. is pleasant and cooperative with care. Pt. ate his meals in the dining room with cohorts he sits alone and keeps his head down not engaging socially. Pt. agreed to a shower and a shave today. He paced the unit most of the shift waiting for snacks and coffee. S/I, H/I: Denies A/VH: Denies Sleep: Pt. slept 7.15 hrs per NOC shift and no naps today. ADL's: Independent, showered Group attendance: NA Were meds taken: Yes Any med S/E: Denies. None observed. Mental Status Exam Appearance: Older male, clean and wearing street clothes. Eye contact: Good Behavior: Cooperative, pleasant Speech: Mumbles, soft, minimal Mood: Pleasant Affect: Constricted Thought process: Linear Thought Content: Having coffee Cognition: A/O X 3 Insight: Poor Judgment: Poor Interventions PRN's used: Nicotine lozenges Therapeutic interventions: 1:1 assessment, maintained a safe and supportive environment, provided clear and simple instructions, therapeutic communication, active listening, medication administration/education/monitoring, encouragement to attend groups, provided distraction, redirection, attempted reality orientation, provided positive reinforcement, and maintained Q15 minute safety checks. Restraints/seclusion/emergency medication: N/A Justification of Continued Inpatient Treatment: Pt continues to be gravely disabled, he is unable to formulate a viable plan for food, clothing, and detention. [facility] has Pt on T-Con
[2021-08-28 20:00] VITALS: BP 113/75
[2021-08-28] MEDS: olanzapine 10mg tablet PO SCH (20:12)
[2021-08-28 21:32] VITALS: BP 113/75
--- NOTE | 2021-08-29 05:05 | NUR ---
Nursing Progress Note: Legal hold: T-Con Client on involuntary status for GD Report received from KELLY Jeffery with use of SBAR Why they are here: Pt was placed on a 5150 in [facility]. Pt appeared to be disheveled, was hungry, and dehydrated. He is unable to provide a viable plan for food, clothing, or mcfp. Assessment What has happened this shift: Patient was up pacing the unit and sitting in the hallway waiting for snacktime coffee. He denies all MH symptoms, but is distracted by IS. Pt did request nicotine lozenge and went to sleep shortly after snacktime, around 2114. Pt remained sleeping without signs of distress. S/I, H/I: Denies A/VH: Denies, but talks to himself. Sleep: Refer to sleep assessment ADL's: Independent Group attendance: NA Were meds taken: Yes Any med S/E: None observed or reported Mental Status Exam Appearance: Disheveled, but appropriately dressed in personal attire. Eye contact: Good Behavior: Pleasant and cooperative, self-isolative Speech: Clear, mumbles/stutters at times, minimal Mood: Euthymic Affect: Pleasant Thought process: Linear, fixed delusions Thought Content: Meeting needs Cognition: A&O x3 Insight: Poor Judgment: Poor Interventions PRN's used: Nicotine Lozenge Therapeutic interventions: Maintained a safe and supportive environment, provided clear and simple instructions, therapeutic communication, active listening, medication administration/education/monitoring, encouragement to attend groups, provided distraction, attempted reality orientation, provided positive reinforcement, and maintained Q15 minute safety checks. Restraints/seclusion/emergency medication: NA Justification of Continued Inpatient Treatment: Pt continues to be gravely disabled, he is unable to formulate a viable plan for food, clothing, and mcfp. He came to us from [facility] here on a [facility] [place], [facility] is discussing an LPS referral.
[2021-08-29] MEDS: lisinopril 10 MG tablet PO SCH (07:41)
[2021-08-29] MEDS: atorvastatin 20mg tablet PO SCH (07:43)
[2021-08-29] MEDS: multivitamins, therapeutics tablet PO SCH (07:43)
[2021-08-29] MEDS: propranolol 10mg tablet PO SCH ×2 (07:43→20:31)
[2021-08-29] MEDS: OLANZAPINE 5 MG TABLET PO SCH ×3 (07:44→12:32)
[2021-08-29] MEDS: nicotine 21mg patch - 24 hr TD SCH (07:44)
[2021-08-29] MEDS: NICOTINE POLACRILEX 2 MG LOZENGE BC PRN ×5 (07:46→18:19)
[2021-08-29 09:16] VITALS: BP 146/97
[2021-08-29 09:18] VITALS: BP 146/97
--- NOTE | 2021-08-29 14:52 | NUR ---
[facility] CONSERVATORSHIP FOR [address] with [facility]. He his now conserved by [facility] for one year. AGUILAR Cloud
--- NOTE | 2021-08-29 16:54 | NUR ---
Nursing Progress Note LUIS Legal hold: T-Con Client on involuntary status for GD Report received from RN with use of SBAR Why are they here: [facility] Pt appeared to be disheveled, was hungry, and dehydrated. He is unable to provide a viable plan for food, clothing, or skilled nursing. Assessment What has happened this shift: Patient was ambulating in hager at the beginning of the shift and had morning coffee. Morning medications were given. Denies any SI/HI or V/A hallucinations. 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 Patient continues to request coffee and prn nicotine lozenges. Pacing back and forth in hager throughout shift. S/I, H/I: Pt denies A/VH: Pt denies, mumbles to self Sleep: None this shift ADL's: Independent Group attendance: No Were meds taken: Yes Any med S/E: None noted or reported Mental Status Exam Appearance: Casual in street clothes Eye contact: Good Behavior: Pleasant Speech: Coherent Mood: Euthymic Affect: Congruent with mood Thought process: Fixed delusions Thought Content: Does not want to be conserved Cognition: A/O X 2 Insight: Poor Judgment: Poor Interventions PRN's used: Nicotine Lozenges Therapeutic interventions: 1:1 assessment, maintained a safe and supportive environment, provided clear and simple instructions, therapeutic communication, active listening, medication administration/education/monitoring, encouragement to attend groups, provided distraction, redirection, attempted reality orientation, provided positive reinforcement, and maintained Q15 minute safety checks. Restraints/seclusion/emergency medication: N/A Justification of Continued Inpatient Treatment: Pt continues to be gravely disabled, he is unable to formulate a viable plan for food, clothing, and skilled nursing. [facility] has Pt on T-Con.
[2021-08-29] MEDS: olanzapine 10mg tablet PO SCH (20:31)
[2021-08-29 20:40] VITALS: BP 135/84
--- NOTE | 2021-08-30 01:19 | NUR ---
Nursing Progress Note LUIS Legal hold: LPS Client on involuntary status for GD Report received from RN with use of SBAR Why are they here: Pt was placed on a 5150 in [facility]. Pt appeared to be disheveled, was hungry, and dehydrated. He is unable to provide a viable plan for food, clothing, or prison. Assessment What has happened this shift: Patient pacing back and forth in hallway at shift change. Patient was conserved through [facility] for 1yr per SBAR report. patient laid in bed partially through the evening. Patient got up to get snack. Pt took meds w/o complications. Pt denies any MH symptoms. S/I, H/I: Pt denies A/VH: Pt denies, mumbles to self Sleep: None this shift ADL's: Independent Group attendance: No Were meds taken: Yes Any med S/E: None noted or reported Mental Status Exam Appearance: Casual in street clothes Eye contact: Good Behavior: Pleasant Speech: Coherent Mood: Euthymic Affect: Congruent with mood Thought process: Fixed delusions Thought Content: wants coffee Cognition: A/O X 2 Insight: Poor Judgment: Poor Interventions PRN's used:none Therapeutic interventions: 1:1 assessment, maintained a safe and supportive environment, provided clear and simple instructions, therapeutic communication, active listening, medication administration/education/monitoring, encouragement to attend groups, provided distraction, redirection, attempted reality orientation, provided positive reinforcement, and maintained Q15 minute safety checks. Restraints/seclusion/emergency medication: N/A Justification of Continued Inpatient Treatment: Pt continues to be gravely disabled, he is unable to formulate a viable plan for food, clothing, and prison. [facility] has Pt on T-Con.
[2021-08-30] MEDS: atorvastatin 20mg tablet PO SCH (07:45)
[2021-08-30] MEDS: OLANZAPINE 5 MG TABLET PO SCH ×2 (07:45→12:54)
[2021-08-30] MEDS: propranolol 10mg tablet PO SCH ×2 (07:45→20:06)
[2021-08-30] MEDS: multivitamins, therapeutics tablet PO SCH (07:45)
[2021-08-30] MEDS: lisinopril 10 MG tablet PO SCH (07:45)
[2021-08-30] MEDS: nicotine 21mg patch - 24 hr TD SCH (07:48)
[2021-08-30 08:00] VITALS: BP 112/65
[2021-08-30] MEDS: NICOTINE POLACRILEX 2 MG LOZENGE BC PRN ×5 (08:09→18:17)
--- NOTE | 2021-08-30 10:27 | NUR ---
PLACEMENT UPDATE Jerardo is #2 on the wait-list for [facility]. AGUILAR Cloud
--- NOTE | 2021-08-30 16:37 | NUR ---
Nursing Progress Note: Legal hold: T-Con Client on involuntary status for GD Report received from GAIL Velasquez with use of SBAR Why they are here: Pt was placed on a 5150 in [facility]. Pt appeared to be disheveled, was hungry, and dehydrated. He is unable to provide a viable plan for food, clothing, or mcc. Assessment What has happened this shift: Pt. awake at start of shift and requesting coffee. Pt. took all medications and ate breakfast. 1:1 done at bedside, Pt. asking about discharge, pt. denies all psych symptoms. Pt. states, I dont have mental illness. Pt. observed pacing the hager or isolating to his room. Pt. is socially withdrawn. S/I, H/I: Denies A/VH: Denies but appears internally occupied. Sleep: Pt. slept 8.75 hrs on NOC shift and does not appear to sleep during the day. ADL's: Independent Group attendance: No Were meds taken: Yes Any med S/E: Denies. None observed. Mental Status Exam Appearance: Older appearing man, disheveled, wearing casual personal attire. Eye contact: WNL Behavior: Cooperative, bashful, socially withdrawn Speech: Mumbled, soft, minimal Mood: Anxious Affect: Constricted Thought process: Fixed delusions. Tangential. Thought Content: Circumstantial. Cognition: A/O X 3 (Not to circumstance) Insight: Poor Judgment: Poor Interventions PRN's used: nicotine lozenge Therapeutic interventions: 1:1 assessment, maintained a safe and supportive environment, provided clear and simple instructions, therapeutic communication, active listening, medication administration/education/monitoring, encouragement to attend groups, provided distraction, redirection, attempted reality orientation, provided positive reinforcement, and maintained Q15 minute safety checks. Restraints/seclusion/emergency medication: N/A Justification of Continued Inpatient Treatment: Pt continues to be gravely disabled, he is unable to formulate a viable plan for food, clothing, and mcc. [facility] has Pt on T-Con
[2021-08-30 20:00] VITALS: BP 112/86
[2021-08-30] MEDS: olanzapine 10mg tablet PO SCH (20:07)
--- NOTE | 2021-08-30 23:45 | NUR ---
Nursing Progress Note: Legal hold: LPS Client on involuntary status for GD Report received from GAIL Dillard with use of SBAR Why they are here: Pt was placed on a 5150 in [facility]. Pt appeared to be disheveled, was hungry, and dehydrated. He is unable to provide a viable plan for food, clothing, or long-term. Assessment What has happened this shift: Patient spent the evening pacing halls, while having a conversation with himself. He asks for coffee and every day he has to be reminded what time is snack and coffee time. He takes HS meds than goes to his room for sleep, which he is observed doing without issue. S/I, H/I: Denies A/VH: Denies, but talks to himself. Sleep: Refer to sleep assessment ADL's: Independent Group attendance: NA Were meds taken: Yes Any med S/E: None observed or reported Mental Status Exam Appearance: Disheveled, but appropriately dressed in personal attire. Eye contact: Good Behavior: Pleasant and cooperative, self-isolative Speech: Clear, mumbles/stutters at times, minimal Mood: Euthymic Affect: Pleasant Thought process: Linear, fixed delusions Thought Content: Meeting needs Cognition: A&O x3 Insight: Poor Judgment: Poor Interventions PRN's used: Therapeutic interventions: Maintained a safe and supportive environment, provided clear and simple instructions, therapeutic communication, active listening, medication administration/education/monitoring, encouragement to attend groups, provided distraction, attempted reality orientation, provided positive reinforcement, and maintained Q15 minute safety checks. Restraints/seclusion/emergency medication: NA Justification of Continued Inpatient Treatment: Pt continues to be gravely disabled, he is unable to formulate a viable plan for food, clothing, and long-term. He came to us from [facility] here on a [address] [place], and is now conserved through [facility].[email or web address]
[2021-08-31 07:18] VITALS: BP 148/106
[2021-08-31] MEDS: OLANZAPINE 5 MG TABLET PO SCH ×2 (07:25→12:42)
[2021-08-31] MEDS: multivitamins, therapeutics tablet PO SCH (07:26)
[2021-08-31] MEDS: atorvastatin 20mg tablet PO SCH (07:26)
[2021-08-31] MEDS: propranolol 10mg tablet PO SCH ×2 (07:26→20:06)
[2021-08-31] MEDS: lisinopril 10 MG tablet PO SCH (07:26)
[2021-08-31] MEDS: nicotine 21mg patch - 24 hr TD SCH (07:28)
[2021-08-31] MEDS: NICOTINE POLACRILEX 2 MG LOZENGE BC PRN ×5 (07:29→18:29)
--- NOTE | 2021-08-31 11:11 | NUR ---
Sent updated notes (08/17-08/30) to Karri [facility] for concurrent review. AGUILRA Cloud
[2021-08-31 11:25] VITALS: BP 141/89
--- NOTE | 2021-08-31 17:04 | NUR ---
Nursing Progress Note: Legal hold: T-Con Client on involuntary status for GD Report received from GAIL Velasquez with use of SBAR Why they are here: Pt was placed on a 5150 in [facility]. Pt appeared to be disheveled, was hungry, and dehydrated. He is unable to provide a viable plan for food, clothing, or nursing home. Assessment What has happened this shift: Pt. awake at start of shift and requesting coffee. Pt. took all medications and ate breakfast. 1:1 done at bedside, pt. denies all psych symptoms. Pt. states, I dont have mental illness and need to get discharged so I can work. Pt. observed pacing the hager or isolating to his room. Pt. is socially withdrawn. Pt. showered today, however, pt. encouraged to have his clothes washed but refused. S/I, H/I: Denies A/VH: Denies but appears internally occupied. Sleep: Pt. slept 8.75 hrs on NOC shift and does not appear to sleep during the day. ADL's: Independent but needs encouragement. Pt. showered today. Group attendance: NA Were meds taken: Yes Any med S/E: Denies. None observed. Mental Status Exam Appearance: Older appearing man, disheveled, wearing casual personal attire. Eye contact: WNL Behavior: Cooperative, bashful, socially withdrawn Speech: Mumbles, soft, minimal Mood: Anxious Affect: Constricted Thought process: Fixed delusions. Tangential. Thought Content: Circumstantial. Discharge focused Cognition: A/O X 3 (Not to circumstance) Insight: Poor Judgment: Poor Interventions PRN's used: nicotine lozenge Therapeutic interventions: 1:1 assessment, maintained a safe and supportive environment, provided clear and simple instructions, therapeutic communication, active listening, medication administration/education/monitoring, encouragement to attend groups, provided distraction, redirection, attempted reality orientation, provided positive reinforcement, and maintained Q15 minute safety checks. Restraints/seclusion/emergency medication: N/A Justification of Continued Inpatient Treatment: Pt continues to be gravely disabled, he is unable to formulate a viable plan for food, clothing, and nursing home. [facility] has Pt on T-Con
[2021-08-31 19:35] VITALS: BP 117/78
[2021-08-31] MEDS: olanzapine 10mg tablet PO SCH (20:06)
--- NOTE | 2021-08-31 21:14 | NUR ---
Nursing Progress Note: Legal hold: T-Con Client on involuntary status for GD Report received from GAIL Colby with use of SBAR Why they are here: Pt was placed on a 5150 in [facility]. Pt appeared to be disheveled, was hungry, and dehydrated. He is unable to provide a viable plan for food, clothing, or fdc. Assessment What has happened this shift: Pt approached nurses station requesting a nicotine lozenge at change of shift. Pt states his day was good and spent time out of his room sitting in the group room but continues to isolate to himself. Pt had evening snack and took HS meds but declined to remove his nicotine patch, stating "Im just going to do it later." S/I, H/I: Denies A/VH: Denies but appears internally occupied. Sleep: see sleep hours ADL's: Independent but needs encouragement. Pt. showered today. Group attendance: NA Were meds taken: Yes Any med S/E: Denies. None observed. Mental Status Exam Appearance: Older appearing man, disheveled, wearing casual personal attire. Eye contact: WNL Behavior: Cooperative, bashful, socially withdrawn Speech: Mumbles, soft, minimal Mood: Anxious Affect: Constricted Thought process: Fixed delusions. Tangential. Thought Content: Circumstantial. Discharge focused Cognition: A/O X 3 (Not to circumstance) Insight: Poor Judgment: Poor Interventions PRN's used: nicotine lozenge Therapeutic interventions: 1:1 assessment, maintained a safe and supportive environment, provided clear and simple instructions, therapeutic communication, active listening, medication administration/education/monitoring, encouragement to attend groups, provided distraction, redirection, attempted reality orientation, provided positive reinforcement, and maintained Q15 minute safety checks. Restraints/seclusion/emergency medication: N/A Justification of Continued Inpatient Treatment: Pt continues to be gravely disabled, he is unable to formulate a viable plan for food, clothing, and fdc. [facility] has Pt on T-Con
[2021-09-01] MEDS: NICOTINE POLACRILEX 2 MG LOZENGE BC PRN ×4 (07:12→15:50)
[2021-09-01] MEDS: multivitamins, therapeutics tablet PO SCH (07:13)
[2021-09-01] MEDS: OLANZAPINE 5 MG TABLET PO SCH ×2 (07:13→12:29)
[2021-09-01] MEDS: propranolol 10mg tablet PO SCH ×2 (07:14→20:21)
[2021-09-01] MEDS: atorvastatin 20mg tablet PO SCH (07:14)
[2021-09-01] MEDS: nicotine 21mg patch - 24 hr TD SCH (07:14)
[2021-09-01] MEDS: lisinopril 10 MG tablet PO SCH (07:15)
[2021-09-01 07:43] VITALS: BP 121/89
--- NOTE | 2021-09-01 09:29 | NUR ---
Reassessment: Pt continues eating well with 75-100% PO intake on regular diet meeting estimated nutrient needs. [facility] 08/31. No nutrition intervention implemented at this time. Will continue to follow. Recommendations: 1. Continue regular diet 2. Bowel care per rx 3. Weekly scaled wts Addendum: 09/01/21 at [address] Amended: Links added.
--- NOTE | 2021-09-01 14:47 | NUR ---
Nursing Progress Note: Legal hold: T-Con Client on involuntary status for GD Report received from ELLYN Velasquez with use of SBAR Why they are here: Pt was placed on a 5150 in [facility]. Pt appeared to be disheveled, was hungry, and dehydrated. He is unable to provide a viable plan for food, clothing, or skilled nursing. Assessment What has happened this shift: Patient is resting quietly in bed at the start of the shift. Upon awakening the patient paces the unit and drinks coffee. Requests nicotine lozenge. Cooperative with 1:1 assessment and medications. Makes delusional statements about being in a witness protection program and about people hes involved with in [place]. S/I, H/I: Denies A/VH: Denies but appears internally occupied. Sleep: 1 hour in the morning. ADL's: Independent but needs encouragement. Group attendance: No Were meds taken: Yes Any med S/E: None observed or reported Mental Status Exam Appearance: Older appearing man, disheveled, wearing casual personal attire. Eye contact: Poor Behavior: Cooperative, withdrawn, paces Speech: Clear, disorganized at times, soft, minimal Mood: Okay. Affect: Constricted Thought process: Fixed delusions. Tangential. Thought Content: Witness protection program and [place]. Cognition: A/O X 3 (Not to circumstance) Insight: Poor Judgment: Fair Interventions PRN's used: nicotine lozenge Therapeutic interventions: 1:1 assessment, maintained a safe and supportive environment, provided clear and simple instructions, therapeutic communication, active listening, medication administration/education/monitoring, encouragement to attend groups, provided distraction, redirection, attempted reality orientation, provided positive reinforcement, and maintained Q15 minute safety checks. Restraints/seclusion/emergency medication: N/A Justification of Continued Inpatient Treatment: Pt continues to be gravely disabled, he is unable to formulate a viable plan for food, clothing, and skilled nursing. [facility] has Pt on T-Con
[2021-09-01] MEDS: lactose-reduced food (Ensure Enlive) - 237ml bottle PO SCH (16:51)
[2021-09-01 19:25] VITALS: BP 108/74
[2021-09-01] MEDS: olanzapine 10mg tablet PO SCH (20:21)
[2021-09-01] MEDS: risperiDONE 0.5mg tablet PO SCH (20:22)
--- NOTE | 2021-09-02 01:44 | NUR ---
Nursing Progress Note: Legal hold: T-Con Client on involuntary status for GD Report received from ELLYN Henriquez with use of SBAR Behavior: Fatigued Assessment What has happened this shift: Patient was observed sleeping at beginning of shift. Patient stayed in bed until snack time. Patient was not found pacing around unit or making delusion statements. When asked if the patient was feeling all right pt stated he just felt out of it and wanted to lay back down. Patient took all night medications without issue . Patient stats he hopes his new medication Risperdal will work. Patient participated in snack and returned to bed. .
[2021-09-02] MEDS: propranolol 10mg tablet PO SCH ×2 (07:39→20:19)
[2021-09-02] MEDS: lisinopril 10 MG tablet PO SCH (07:39)
[2021-09-02] MEDS: OLANZAPINE 5 MG TABLET PO SCH (07:39)
[2021-09-02] MEDS: NICOTINE POLACRILEX 2 MG LOZENGE BC PRN ×6 (07:39→19:27)
[2021-09-02] MEDS: atorvastatin 20mg tablet PO SCH (07:39)
[2021-09-02] MEDS: multivitamins, therapeutics tablet PO SCH (07:39)
[2021-09-02] MEDS: risperiDONE 0.5mg tablet PO SCH (07:39)
[2021-09-02] MEDS: nicotine 21mg patch - 24 hr TD SCH (07:41)
[2021-09-02 08:00] VITALS: BP 109/73
[2021-09-02] MEDS: lactose-reduced food (Ensure Enlive) - 237ml bottle PO SCH ×3 (08:11→17:58)
--- NOTE | 2021-09-02 17:19 | NUR ---
Nursing Progress Note: Jerardo Legal hold: LPS Client on involuntary status for GD Report received from ELLYN Seth with use of SBAR Why they are here: Pt was placed on a 5150 in [facility]. Pt appeared to be disheveled, was hungry, and dehydrated. He is unable to provide a viable plan for food, clothing, or snf. Assessment What has happened this shift: Patient was observed walking around the unit at change of shift. He approached this ticket writer asking for coffee. Patient continues to present as pleasant, quiet, and cooperative with care. He is observed pacing the unit throughout the morning. Patient joined in the group room with peers for breakfast. He is receptive to scheduled medication and 1:1 assessment. When asked for patients date of he was noted telling this ticket writer a different day before correcting himself. Patient then proceeded to tell this ticket writer that he is in the witness protection program and was lied to by the thieves. He denies SI/HI, AH or VH. However, patient appears to be internally occupied. Patient endorsed that he is part of the [place] government and [employer]. Patient also endorsing that he wants to discharge today and find housing in [place]. He was noted to be active on the unit throughout the day. Patient took a shower on this shift and changed into clean clothing with clean linen applied to his bed. He was noted regularly asking for coffee and Nicotine lozenges. 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 Patient participated for all meal and snack times in the group room with peers. S/I, H/I: Denies A/VH: Denies but appears internally occupied. Sleep: Pt slept 8.75 hours last night per NOC shift. Napped for approximately 2 hours today. ADL's: Independent but needs encouragement. Group attendance: No Were meds taken: Yes Any med S/E: None observed or reported Mental Status Exam Appearance: Clean, showered on this shift. Older appearing man, wearing casual personal attire. Eye contact: Poor Behavior: Cooperative, withdrawn, paces Speech: Clear, disorganized at times, soft, minimal Mood: Pleasant Affect: Constricted Thought process: Fixed delusions. Tangential. Thought Content: Witness protection program. Perseveration on discharge. Cognition: A&O X 3 (Not to circumstance) Insight: Poor Judgment: Fair Interventions PRN's used: Nicotine lozenge Therapeutic interventions: 1:1 assessment, maintained a safe and supportive environment, provided clear and simple instructions, therapeutic communication, active listening, medication administration/education/monitoring, encouragement to attend groups, provided distraction, redirection, attempted reality orientation, provided positive reinforcement, and maintained Q15 minute safety checks. Restraints/seclusion/emergency medication: N/A Justification of Continued Inpatient Treatment: Pt continues to be gravely disabled, he is unable to formulate a viable plan for food, clothing, and snf. [facility] has Pt on T-Con
[2021-09-02 19:00] VITALS: BP 125/88
[2021-09-02] MEDS: olanzapine 10mg tablet PO SCH (20:19)
[2021-09-02] MEDS: risperiDONE 2mg tablet PO SCH (20:19)
--- NOTE | 2021-09-03 04:17 | NUR ---
Nursing Progress Note: Legal hold: LPS Client on involuntary status for GD Report received from ELLYN Henriquez with use of SBAR Behavior: Fatigued Assessment What has happened this shift: Patient was found in bed at change of shift. Patient got up after nurse encouraged him too. Patient requested a nicotine lozenge and then began pacing around unit. Patient participated in snack and then went back to bed. Patient refused to take off nicotine lozenge and took all night medications without issue.
[2021-09-03 08:00] VITALS: BP 151/100
[2021-09-03] MEDS ORDERED: risperiDONE 0.5mg tablet PO SCH (08:00)
[2021-09-03] MEDS: propranolol 10mg tablet PO SCH ×2 (08:09→20:36)
[2021-09-03] MEDS: multivitamins, therapeutics tablet PO SCH (08:10)
[2021-09-03] MEDS: lisinopril 10 MG tablet PO SCH (08:10)
[2021-09-03] MEDS: atorvastatin 20mg tablet PO SCH (08:10)
[2021-09-03] MEDS: OLANZAPINE 5 MG TABLET PO SCH (08:10)
[2021-09-03] MEDS: NICOTINE POLACRILEX 2 MG LOZENGE BC PRN ×5 (08:10→20:36)
[2021-09-03] MEDS: nicotine 21mg patch - 24 hr TD SCH (08:11)
[2021-09-03] MEDS: lactose-reduced food (Ensure Enlive) - 237ml bottle PO SCH ×3 (08:11→18:02)
[2021-09-03 09:35] VITALS: BP 140/90
--- NOTE | 2021-09-03 12:33 | NUR ---
Nursing Progress Note: Legal hold: LPS Client on involuntary status for GD Report received from nurse with use of SBAR: Karina Kaufman RN Why are they here: Pt was placed on a 5150 in [facility]. Pt appeared to be disheveled, was hungry, and dehydrated. He is unable to provide a viable plan for food, clothing, or prison. Assessment What has happened this shift: Received pt. sleeping in bed at the beginning of the shift, he awoke and attended breakfast in the Group Room and afterwards approached this specification writer requesting a PRN Nicotine Lozenge as is his routine. Pt. presents as pleasant, however continues to be somewhat restless, guarded, and withdrawn. He is A&O X3, however when questioned by this specification writer regarding why he is here pt. states in a fixed delusional manner, "[place] stopped for a medical check. No mental health." Pt. continues to deny any other mental health s/s and was not observed to be internally preoccupied. His thought process continues to be tangental at times, but he is able to be be redirected. Pt. remains up throughout much of the shift pacing as is his routine, he is not observed to be interacting with others. Pt. had an elevated BP this AM, however scheduled antihypertensive medications were administered with effectiveness. HS Nicotine Patch was removed. S/I, H/I: Denies A/VH: Denies, does not appear to be internally preoccupied Sleep: Sleep hours are 8, and pt. naps intermittently during the shift ADL's: Pt. requires some direction and encouragement Group attendance: N/A Were meds taken: Yes Any med S/E: None Mental Status Exam Appearance: Hair and clothing are somewhat disheveled Eye contact: Intermittent eye contact Behavior: Cooperative, restless, guarded, and withdrawn Speech: Pt. stutters and speaks in fragmented sentences, but is able to make himself understood Mood: Somewhat restless and guarded, however pleasant Affect: Blunted Thought process: Tangental Thought Content: Fixed delusions Cognition: A&O X3 (not to reason here) Insight: Poor Judgment: Poor Interventions PRN's used: Nicotine Lozenges Therapeutic interventions: Maintained a safe and supportive environment, ensured contract for safety, provided clear and simple instructions, attempted to orient to reality, encouraged participation on the unit and provided needed direction and encouragement to perform ADLs, and maintained Q 15min safety checks. Restraints/seclusion/emergency medication: N/A Justification of Continued Inpatient Treatment: Per Dr. Santana, pt. continues to require a safe and supportive environment and medication adjustments. He will discharge to [facility].
[2021-09-03 19:00] VITALS: BP 109/68
[2021-09-03] MEDS: risperiDONE 2mg tablet PO SCH (20:36)
[2021-09-03] MEDS: olanzapine 10mg tablet PO SCH (20:36)
[2021-09-03] MEDS ORDERED: olanzapine 10mg tablet PO SCH (21:00)
--- NOTE | 2021-09-04 02:28 | NUR ---
Nursing Progress Note: Legal hold: LPS Client on involuntary status for GD Report received from nurse with use of SBAR: GAIL Henriquez Why are they here: Pt was placed on a 5150 in [facility]. Pt appeared to be disheveled, was hungry, and dehydrated. He is unable to provide a viable plan for food, clothing, or fci. Assessment What has happened this shift: Received pt. up and pacing in the hallway at the beginning of the shift, he remains withdrawn from others. Pt. attended snack in the Group Room and afterwards approached this song writer requesting HS medications. Pt. reports animatedly that he is looking forward to discharge and states, "I am going to get back on my feet!" He also appears to be gaining insight regarding his mental illness and states, "I'm phasing out of the Zyprexa and going to the Risperdal." Pt. does not make any delusional statements this shift. S/I, H/I: Denies A/VH: Denies, does not appear to be internally preoccupied Sleep: Pt. appears to be sleeping comfortably throughout the night ADL's: Pt. requires some direction and encouragement Group attendance: N/A Were meds taken: Yes Any med S/E: None Mental Status Exam Appearance: Hair and clothing are somewhat disheveled Eye contact: Intermittent eye contact Behavior: Cooperative, restless, guarded, and withdrawn Speech: Pt. stutters and speaks in fragmented sentences, but is able to make himself understood Mood: Somewhat restless and guarded, however pleasant Affect: Blunted Thought process: Tangental Thought Content: Fixed delusions Cognition: A&O X3 (not to reason here) Insight: Poor Judgment: Poor Interventions PRN's used: Nicotine Lozenge Therapeutic interventions: Maintained a safe and supportive environment, ensured contract for safety, provided clear and simple instructions, attempted to orient to reality, encouraged participation on the unit and provided needed direction and encouragement to perform ADLs, and maintained Q 15min safety checks. Restraints/seclusion/emergency medication: N/A Justification of Continued Inpatient Treatment: Per Dr. Santana, pt. continues to require a safe and supportive environment and medication adjustments. He will discharge to [facility]. Addendum: 09/04/21 at 0358 by Raeann Falcon RN Pt's HS dose of Zyprexa was decreased after medication had already been administered this shift, decreased dosage will start tomorrow at HS.
[2021-09-04] MEDS: lactose-reduced food (Ensure Enlive) - 237ml bottle PO SCH ×3 (07:54→18:00)
[2021-09-04] MEDS: propranolol 10mg tablet PO SCH ×2 (07:54→21:44)
[2021-09-04] MEDS: atorvastatin 20mg tablet PO SCH (07:55)
[2021-09-04] MEDS: lisinopril 10 MG tablet PO SCH (07:55)
[2021-09-04] MEDS: OLANZAPINE 5 MG TABLET PO SCH ×2 (07:55→21:43)
[2021-09-04] MEDS: multivitamins, therapeutics tablet PO SCH (07:55)
[2021-09-04] MEDS: risperiDONE 2mg tablet PO SCH (07:55)
[2021-09-04] MEDS: NICOTINE POLACRILEX 2 MG LOZENGE BC PRN ×7 (07:56→20:57)
[2021-09-04] MEDS: nicotine 21mg patch - 24 hr TD SCH (07:56)
[2021-09-04 08:00] VITALS: BP_SYST 127; BP_SYST 136; BP_DIAS 101; BP_DIAS 94
[2021-09-04] MEDS ORDERED: risperiDONE 2mg tablet PO PRN (14:45)
--- NOTE | 2021-09-04 17:06 | NUR ---
Nursing Progress Note: Jerardo Legal hold: LPS Client on involuntary status for GD Report received from nurse with use of SBAR Why are they here: Pt was placed on a 5150 in [facility]. Pt appeared to be disheveled, was hungry, and dehydrated. He is unable to provide a viable plan for food, clothing, or jail. Assessment What has happened this shift: Received pt. up and pacing in the hallway at the beginning of the shift, he remains withdrawn from others. Patient ate breakfast in community room. Took all medication, requests prn nicotine lozenge. Pleasant. S/I, H/I: Denies A/VH: Denies, does not appear to be internally preoccupied Sleep: 8 hours at night, ADL's: Independent Group attendance: N/A Were meds taken: Yes Any med S/E: None Mental Status Exam Appearance: Hair and clothing are somewhat disheveled Eye contact: Intermittent eye contact Behavior: Cooperative, restless, guarded, and withdrawn Speech: Pt. stutters and speaks in fragmented sentences, but is able to make himself understood Mood: Somewhat restless and guarded, however pleasant Affect: Blunted Thought process: Tangental Thought Content: Fixed delusions Cognition: A&O X3 (not to reason here) Insight: Poor Judgment: Poor Interventions PRN's used: Nicotine Lozenge Therapeutic interventions: Maintained a safe and supportive environment, ensured contract for safety, provided clear and simple instructions, attempted to orient to reality, encouraged participation on the unit and provided needed direction and encouragement to perform ADLs, and maintained Q 15min safety checks. Restraints/seclusion/emergency medication: N/A Justification of Continued Inpatient Treatment: Per Dr. Santana, pt. continues to require a safe and supportive environment and medication adjustments. He will discharge to [facility].
[2021-09-04 20:29] VITALS: BP 128/83
[2021-09-04] MEDS ORDERED: risperiDONE 2mg tablet PO SCH (21:00)
[2021-09-04] MEDS ORDERED: olanzapine 10mg tablet PO SCH (21:00)
[2021-09-04] MEDS ORDERED: risperiDONE 2mg tablet PO ONE (21:05)
[2021-09-04] MEDS: risperiDONE 0.5mg tablet PO SCH (21:44)
--- NOTE | 2021-09-05 01:27 | NUR ---
Nursing Progress Note: Legal hold: LPS Client on involuntary status for GD Report received from nurse with use of SBAR Why are they here: Pt was placed on a 5150 in [facility]. Pt appeared to be disheveled, was hungry, and dehydrated. He is unable to provide a viable plan for food, clothing, or custodial. Assessment What has happened this shift: Pt up on unit pleasant and cooperative. Group room for snack and watched some TV. Not observed interacting with other pts. Pt has some delusional thoughts, wanted [facility] called difficult to understand exactly what he was saying. Easily reassured and distracted. Took all meds went to sleep. S/I, H/I: Denies A/VH: Denies, does not appear to be internally preoccupied Sleep: Asleep at this time ADL's: Independent Group attendance: N/A Were meds taken: Yes Any med S/E: None Mental Status Exam Appearance: Hair and clothing are somewhat disheveled Eye contact: Intermittent eye contact Behavior: Cooperative, restless, guarded, and withdrawn Speech: Pt. stutters and speaks in fragmented sentences, but is able to make himself understood Mood: Somewhat restless and guarded, however pleasant Affect: Blunted Thought process: Tangental Thought Content: Fixed delusions Cognition: A&O X3 (not to reason here) Insight: Poor Judgment: Poor Interventions PRN's used: Nicotine Lozenge Therapeutic interventions: Maintained a safe and supportive environment, ensured contract for safety, provided clear and simple instructions, attempted to orient to reality, encouraged participation on the unit and provided needed direction and encouragement to perform ADLs, and maintained Q 15min safety checks. Restraints/seclusion/emergency medication: N/A Justification of Continued Inpatient Treatment: Per Dr. Santana, pt. continues to require a safe and supportive environment and medication adjustments. He will discharge to [facility].
--- NOTE | 2021-09-05 04:36 | NUR ---
PRN Nicotine lozenges x2
[2021-09-05 08:00] VITALS: BP 103/70
[2021-09-05] MEDS: propranolol 10mg tablet PO SCH ×2 (08:00→20:18)
[2021-09-05] MEDS: OLANZAPINE 5 MG TABLET PO SCH ×2 (08:20→20:18)
[2021-09-05] MEDS: atorvastatin 20mg tablet PO SCH (08:20)
[2021-09-05] MEDS: lisinopril 10 MG tablet PO SCH (08:20)
[2021-09-05] MEDS: multivitamins, therapeutics tablet PO SCH (08:20)
[2021-09-05] MEDS: nicotine 21mg patch - 24 hr TD SCH (08:21)
[2021-09-05] MEDS: risperiDONE 2mg tablet PO SCH ×2 (08:22→20:18)
[2021-09-05] MEDS: NICOTINE POLACRILEX 2 MG LOZENGE BC PRN ×6 (08:22→17:36)
[2021-09-05] MEDS: lactose-reduced food (Ensure Enlive) - 237ml bottle PO SCH ×3 (08:25→18:00)
[2021-09-05] MEDS: LORazepam 1 MG tablet PO PRN (15:41)
--- NOTE | 2021-09-05 16:37 | NUR ---
Nursing Progress Note: Jerardo Legal hold: LPS Client on involuntary status for GD Report received from nurse with use of SBAR Why are they here: Pt was placed on a 5150 in [facility]. Pt appeared to be disheveled, was hungry, and dehydrated. He is unable to provide a viable plan for food, clothing, or long term. Assessment What has happened this shift: Received pt. up and pacing in the hallway at the beginning of the shift, he remains withdrawn from others. Patient ate breakfast in community room. Took all medication, requests prn nicotine lozenge. Patient was found taking other patients coffee and taking it back to room, however denies it when he is confronted. S/I, H/I: Denies A/VH: Denies, does not appear to be internally preoccupied Sleep: 6 hours per night worker report, slept until about 8 AM this morning ADL's: Independent Group attendance: N/A Were meds taken: Yes Any med S/E: None Mental Status Exam Appearance: Hair and clothing are somewhat disheveled Eye contact: Intermittent eye contact Behavior: Cooperative, restless, guarded, and withdrawn Speech: Pt. stutters and speaks in fragmented sentences, but is able to make himself understood Mood: Somewhat restless and guarded, however pleasant Affect: Blunted Thought process: Tangental Thought Content: Fixed delusions Cognition: A&O X3 (not to reason here) Insight: Poor Judgment: Poor Interventions PRN's used: Nicotine Lozenge, ativan Therapeutic interventions: Maintained a safe and supportive environment, ensured contract for safety, provided clear and simple instructions, attempted to orient to reality, encouraged participation on the unit and provided needed direction and encouragement to perform ADLs, and maintained Q 15min safety checks. Restraints/seclusion/emergency medication: N/A Justification of Continued Inpatient Treatment: Per Dr. Santana, pt. continues to require a safe and supportive environment and medication adjustments. He will discharge to [facility].
[2021-09-05 19:33] VITALS: BP 124/77
[2021-09-05] MEDS: risperiDONE 0.5mg tablet PO SCH (20:18)
--- NOTE | 2021-09-05 20:27 | NUR ---
Patient wants to keep nicotine patch on
--- NOTE | 2021-09-05 22:26 | NUR ---
Nursing Progress Note: Jerardo Legal hold: LPS Client on involuntary status for GD Report received from nurse with use of SBAR Why are they here: Pt was placed on a 5150 in [facility]. Pt appeared to be disheveled, was hungry, and dehydrated. He is unable to provide a viable plan for food, clothing, or half-way. Assessment What has happened this shift: pt was sleeping at change of shift. Pt was awaken for HS meds and states he just feels tired tonight. Pt declined to have a snack and states he wants to keep his nicotine patch on tonight. S/I, H/I: Denies A/VH: Denies, does not appear to be internally preoccupied Sleep:see sleep hours ADL's: Independent Group attendance: N/A Were meds taken: Yes Any med S/E: None Mental Status Exam Appearance: Hair and clothing are somewhat disheveled Eye contact: Intermittent eye contact Behavior: Cooperative, restless, guarded, and withdrawn Speech: Pt. stutters and speaks in fragmented sentences, but is able to make himself understood Mood: Somewhat restless and guarded, however pleasant Affect: Blunted Thought process: Tangental Thought Content: Fixed delusions Cognition: A&O X3 (not to reason here) Insight: Poor Judgment: Poor Interventions PRN's used: none Therapeutic interventions: Maintained a safe and supportive environment, ensured contract for safety, provided clear and simple instructions, attempted to orient to reality, encouraged participation on the unit and provided needed direction and encouragement to perform ADLs, and maintained Q 15min safety checks. Restraints/seclusion/emergency medication: N/A Justification of Continued Inpatient Treatment: Per Dr. Santana, pt. continues to require a safe and supportive environment and medication adjustments. He will discharge to [facility].
[2021-09-06] MEDS: NICOTINE POLACRILEX 2 MG LOZENGE BC PRN ×6 (06:37→23:44)
[2021-09-06] MEDS: lisinopril 10 MG tablet PO SCH (07:36)
[2021-09-06] MEDS: multivitamins, therapeutics tablet PO SCH (07:37)
[2021-09-06] MEDS: OLANZAPINE 5 MG TABLET PO SCH ×2 (07:37→20:09)
[2021-09-06] MEDS: propranolol 10mg tablet PO SCH ×2 (07:37→20:08)
[2021-09-06] MEDS: atorvastatin 20mg tablet PO SCH (07:37)
[2021-09-06] MEDS: risperiDONE 2mg tablet PO SCH ×2 (07:37→20:09)
[2021-09-06 07:40] VITALS: BP 154/113
[2021-09-06] MEDS: nicotine 21mg patch - 24 hr TD SCH (07:52)
[2021-09-06] MEDS: lactose-reduced food (Ensure Enlive) - 237ml bottle PO SCH ×3 (08:14→18:04)
--- NOTE | 2021-09-06 17:44 | NUR ---
Nursing Progress Note: Jerardo Legal hold: LPS Client on involuntary status for GD Report received from ELLYN Velasquez with use of SBAR Why they are here: Pt was placed on a 5150 in [facility]. Pt appeared to be disheveled, was hungry, and dehydrated. He is unable to provide a viable plan for food, clothing, or mcfp. Assessment What has happened this shift: Patient was observed walking around the unit at shift change. He approached this securities underwriter shortly after asking for a PRN Nicotine lozenge. Patient participated for breakfast in the group room with peers, noted eating quietly by himself. He continues to present as pleasant, quiet, and cooperative with care. Patient endorsed to this securities underwriter that he is here for medical damage and to get back on his feet. He was receptive to scheduled medication and 1:1 assessment. Patient denies SI/HI, AH or VH. Appears to be internally preoccupied throughout the shift. Patient noted talking quietly under his breath while pacing the unit. He continues to perseverate on fixed delusions of being in the witness protection program. Patient was noted to be active on the unit, regularly asking for coffee and Nicotine lozenges throughout the shift. He participated for all meal and snack times in the group room today. S/I, H/I: Denies A/VH: Denies but appears internally occupied. Sleep: Refer to sleep hours. No naps noted on this shift. ADL's: Independent but needs encouragement. Group attendance: No Were meds taken: Yes Any med S/E: None observed or reported Mental Status Exam Appearance: Older appearing man, disheveled, wearing casual personal attire. Eye contact: Poor, intermittent eye contact. Stares at the ground. Behavior: Cooperative, withdrawn, paces Speech: Pt. stutters and speaks in fragmented sentences, but is able to make himself understood Mood: Somewhat restless, however, pleasant Affect: Blunted Thought process: Fixed delusions. Thought Content: Witness protection program. Perseveration on discharge. Cognition: A&O X 3 (Not to circumstance) Insight: Poor Judgment: Poor Interventions PRN's used: Nicotine lozenge Therapeutic interventions: 1:1 assessment, maintained a safe and supportive environment, provided clear and simple instructions, therapeutic communication, active listening, medication administration/education/monitoring, encouragement to attend groups, provided distraction, redirection, attempted reality orientation, provided positive reinforcement, and maintained Q15 minute safety checks. Restraints/seclusion/emergency medication: N/A Justification of Continued Inpatient Treatment: Pt. continues to require a safe and supportive environment and medication adjustments. He will discharge to [facility].
[2021-09-06 19:42] VITALS: BP 134/93
[2021-09-06] MEDS: risperiDONE 0.5mg tablet PO SCH (20:09)
--- NOTE | 2021-09-07 01:27 | NUR ---
Nursing Progress Note: Jerardo Legal hold: LPS Client on involuntary status for GD Report received from ELLYN Dillard with use of SBAR Why they are here: Pt was placed on a 5150 in [facility]. Pt appeared to be disheveled, was hungry, and dehydrated. He is unable to provide a viable plan for food, clothing, or penitentiary. Assessment What has happened this shift: Patient walking around the unit at shift change. Patient mumbles to self while wandering around hallways. patient in room isolated to self most of the evening. Denies all MH S/S. Patient got up and went to the community room for snack. Patient took evening meds w/o complications. Wanted to keep nicotine patch on denies that he gets nightmares from the patch. S/I, H/I: Denies A/VH: Denies but appears internally occupied. Sleep:See sleep hours ADL's: Independent but needs encouragement. Group attendance: No Were meds taken: Yes Any med S/E: None observed or reported Mental Status Exam Appearance: Older appearing man, disheveled, wearing casual personal attire. Eye contact: Poor, intermittent eye contact. Stares at the ground. Behavior: Cooperative, withdrawn, paces Speech: Pt. stutters and speaks in fragmented sentences, but is able to make himself understood Mood: Somewhat restless, however, pleasant Affect: Blunted Thought process: Fixed delusions. Thought Content: Witness protection program. Perseveration on discharge. Cognition: A&O X 3 (Not to circumstance) Insight: Poor Judgment: Poor Interventions PRN's used: Therapeutic interventions: 1:1 assessment, maintained a safe and supportive environment, provided clear and simple instructions, therapeutic communication, active listening, medication administration/education/monitoring, encouragement to attend groups, provided distraction, redirection, attempted reality orientation, provided positive reinforcement, and maintained Q15 minute safety checks. Restraints/seclusion/emergency medication: N/A Justification of Continued Inpatient Treatment: Pt. continues to require a safe and supportive environment and medication adjustments. He will discharge to [facility].
[2021-09-07 07:36] VITALS: BP 112/81
[2021-09-07] MEDS: risperiDONE 2mg tablet PO SCH ×2 (07:48→20:06)
[2021-09-07] MEDS: propranolol 10mg tablet PO SCH ×2 (07:48→20:07)
[2021-09-07] MEDS: lisinopril 10 MG tablet PO SCH (07:51)
[2021-09-07] MEDS: OLANZAPINE 5 MG TABLET PO SCH ×2 (07:51→20:07)
[2021-09-07] MEDS: atorvastatin 20mg tablet PO SCH (07:52)
[2021-09-07] MEDS: nicotine 21mg patch - 24 hr TD SCH (07:52)
[2021-09-07] MEDS: multivitamins, therapeutics tablet PO SCH (07:52)
[2021-09-07] MEDS: lactose-reduced food (Ensure Enlive) - 237ml bottle PO SCH ×3 (08:00→18:00)
[2021-09-07] MEDS: NICOTINE POLACRILEX 2 MG LOZENGE BC PRN ×5 (10:18→19:16)
--- NOTE | 2021-09-07 14:50 | NUR ---
PLACEMENT UPDATE Jerardo has been accepted at [facility] and they will have a bed available next week. Requested a PPD for placement. AGUILAR Cloud
--- NOTE | 2021-09-07 16:09 | NUR ---
Nursing Progress Note: Legal hold: LPS Client on involuntary status for GD Report received from ELLYN Velasquez with use of SBAR Why they are here: Pt was placed on a 5150 in [facility]. Pt appeared to be disheveled, was hungry, and dehydrated. He is unable to provide a viable plan for food, clothing, or half-way. Assessment What has happened this shift: Patient observed pacing back and forth at the start of this shift. He approached this appeals writer shortly requesting his morning medications along with a nicotine lozenge. Administered his medications and Nicotine Lozenge per his request. Pt observed most of the day pacing up and down the halls responding to internal stimuli, laughing aloud and mumbling. Every 2 hours he stops a nurse and ask for a Nicotine Lozenge. Pt is calm and cooperative on the unit. S/I, H/I: Denies A/VH: Denies Sleep: Did not sleep ADL's: Independent but needs encouragement. Group attendance: No Were Meds taken: Yes Any med S/E: None observed or reported Mental Status Exam Appearance: Older appearing man, disheveled, wearing scrubs with a gastelum pullover sweatshirt. Eye contact: Poor, looks down when speaking to people Behavior: Cooperative, withdrawn, paces Speech: Stutters Mood: Withdrawn Affect: Blunted Thought process: Fixed delusions. Thought Content: Secret witness in the Armed Services Cognition: A&O X 3 (Not to circumstance) Insight: Poor Judgment: Poor Interventions PRN's used: Nicotine lozenge Therapeutic interventions: Provided 1:1 assessment with therapeutic communication, medication administration/education/monitoring, encouragement to attend groups, provided distraction, redirection, attempted reality orientation, provided positive reinforcement, and maintained Q15 minute safety checks. Restraints/seclusion/emergency medication: N/A Justification of Continued Inpatient Treatment: Pt. continues to require a safe and supportive environment and medication adjustments. He will discharge to [facility].
[2021-09-07 19:29] VITALS: BP 123/88
[2021-09-07] MEDS: risperiDONE 0.5mg tablet PO SCH (20:06)
--- NOTE | 2021-09-08 00:22 | NUR ---
Nursing Progress Note: Legal hold: LPS Client on involuntary status for GD Report received from ELLYN Dillard with use of SBAR Why they are here: Pt was placed on a 5150 in [facility]. Pt appeared to be disheveled, was hungry, and dehydrated. He is unable to provide a viable plan for food, clothing, or fdc. Assessment What has happened this shift:Pt wandering up and down hallway at shift change. Pt is polite and appropriate when conversing. Pt asks for coffee and is reminded to wait until snack time. Pt asked for nicotine lozenge. Pt requested to keep his nicotine patch on. The pt went to the community room for snack and grabbed a coffee and went back to his room. Pt denies any MH s/s. Pt took evening meds w/o complications. pt went to sleep shortly after med pass. S/I, H/I: Denies A/VH: Denies Sleep: See sleep hours ADL's: Independent but needs encouragement. Group attendance: No group in the evenings Were Meds taken: Yes Any med S/E: None observed or reported Mental Status Exam Appearance: Older appearing man, disheveled, wearing scrubs with a gastelum pullover sweatshirt. Eye contact: Poor, looks down when speaking to people Behavior: Cooperative, withdrawn, paces Speech: Stutters Mood: Withdrawn Affect: Blunted Thought process: Fixed delusions. Thought Content: Secret witness in the Armed Services Cognition: A&O X 3 (Not to circumstance) Insight: Poor Judgment: Poor Interventions PRN's used: Nicotine lozenge Therapeutic interventions: Provided 1:1 assessment with therapeutic communication, medication administration/education/monitoring, encouragement to attend groups, provided distraction, redirection, attempted reality orientation, provided positive reinforcement, and maintained Q15 minute safety checks. Restraints/seclusion/emergency medication: N/A Justification of Continued Inpatient Treatment: Pt. continues to require a safe and supportive environment and medication adjustments. He will discharge to [facility].
[2021-09-08] MEDS: risperiDONE 2mg tablet PO SCH ×2 (07:38→20:33)
[2021-09-08] MEDS: OLANZAPINE 5 MG TABLET PO SCH ×2 (07:38→20:33)
[2021-09-08] MEDS: multivitamins, therapeutics tablet PO SCH (07:38)
[2021-09-08] MEDS: nicotine 21mg patch - 24 hr TD SCH (07:38)
[2021-09-08] MEDS: atorvastatin 20mg tablet PO SCH (07:38)
[2021-09-08] MEDS: lisinopril 10 MG tablet PO SCH (07:41)
[2021-09-08] MEDS: propranolol 10mg tablet PO SCH ×2 (07:42→20:33)
--- NOTE | 2021-09-08 07:45 | NUR ---
Reassessment: Pt continues eating well with 75-100% PO intake on regular diet w/ double protein TID. Ensure Enlive TID was also ordered of which pt consumes 100% of. However, this is not indicated at this time. This is causing pt to consume well over 400% of est protein needs and greater than 250% of energy needs. D/w RN recommendation to d/c ONS. LBM 09/07. Will continue to monitor. Recs: 1. Continue Regular diet as tolerated; discontinue double protein TID 2. Ensure Enlive TID; discontinue as not indicated 3. Bowel care PRN 4. Weekly wts Addendum: 09/08/21 at [address] Amended: Links added.
[2021-09-08] MEDS: lactose-reduced food (Ensure Enlive) - 237ml bottle PO SCH (07:54)
[2021-09-08] MEDS: NICOTINE POLACRILEX 2 MG LOZENGE BC PRN ×6 (07:55→19:12)
[2021-09-08 08:00] VITALS: BP 105/76
[2021-09-08] MEDS ORDERED: tuberculin, purif. prot. deriv. 5 units/0.1ml ID ONE (14:00)
--- NOTE | 2021-09-08 18:11 | NUR ---
Nursing Progress Note: Legal hold: LPS Client on involuntary status for GD Report received from ELLYN Velasquez with use of SBAR Why they are here: Pt was placed on a 5150 in [facility]. Pt appeared to be disheveled, was hungry, and dehydrated. He is unable to provide a viable plan for food, clothing, or senior living. Assessment What has happened this shift: Pt paced the halls most of the day wearing a headset listening to Rock. This nurse placed a PPD. He is due for discharge to [facility] next week. Pt is pleasant. Speech is disorganized. S/I, H/I: Denies A/VH: Denies Sleep: Did not sleep ADL's: Independent but needs encouragement. Group attendance: No Were Meds taken: Yes Any med S/E: None observed or reported Mental Status Exam Appearance: Older appearing man, disheveled, wearing the same scrubs with a gastelum pullover sweatshirt. Eye contact: Poor, looks down when speaking to people Behavior: Cooperative, withdrawn, paces Speech: Stutters Mood: Withdrawn Affect: Blunted Thought process: Fixed delusions. Thought Content: Secret witness in the Armed Services Cognition: A&O X 3 (Not to circumstance) Insight: Poor Judgment: Poor Interventions PRN's used: Nicotine lozenges q 2 hours Therapeutic interventions: Provided 1:1 assessment with therapeutic communication, medication administration/education/monitoring, encouragement to attend groups and shower, provided distraction, redirection, attempted reality orientation, provided positive reinforcement, and maintained Q15 minute safety checks. Restraints/seclusion/emergency medication: N/A Justification of Continued Inpatient Treatment: Pt. continues to require a safe and supportive environment and medication adjustments. He will discharge to [facility].
[2021-09-08 19:00] VITALS: BP 116/70
[2021-09-08] MEDS: LORazepam 1 MG tablet PO PRN (19:20)
[2021-09-08] MEDS: risperiDONE 0.5mg tablet PO SCH (20:33)
--- NOTE | 2021-09-09 03:18 | NUR ---
Nursing Progress Note: Legal hold: LPS Client on involuntary status for GD Report received from GAIL Henriquez with use of SBAR Why they are here: Pt was placed on a 5150 in [facility]. Pt appeared to be disheveled, was hungry, and dehydrated. He is unable to provide a viable plan for food, clothing, or halfway. What has happened this shift: Patient laying in bed awake at the beginning of shift. Pleasant and cooperative with care; compliant with medication. PRN Ativan and Nicotine lozenge provided. Nicotine patch removed. Patient continues to respond to IS; rapid speech observed this shift. Delusional thought content expressed this shift; he explained his social security and identity did not need to be changed during witness protection. Patient participated in HS snack prior to bed; observed sleeping and does not appear to be having difficulty. Justification of Continued Inpatient Treatment: Pt. continues to require a safe and supportive environment and medication adjustments. He will discharge to [facility].
[2021-09-09] MEDS: nicotine 21mg patch - 24 hr TD SCH (07:18)
[2021-09-09] MEDS: propranolol 10mg tablet PO SCH ×2 (07:18→20:31)
[2021-09-09] MEDS: risperiDONE 2mg tablet PO SCH ×2 (07:19→20:31)
[2021-09-09] MEDS: lisinopril 10 MG tablet PO SCH (07:19)
[2021-09-09] MEDS: OLANZAPINE 5 MG TABLET PO SCH ×2 (07:19→20:31)
[2021-09-09] MEDS: atorvastatin 20mg tablet PO SCH (07:19)
[2021-09-09] MEDS: multivitamins, therapeutics tablet PO SCH (07:19)
[2021-09-09] MEDS: NICOTINE POLACRILEX 2 MG LOZENGE BC PRN ×6 (07:21→21:07)
[2021-09-09 08:00] VITALS: BP 147/107
--- NOTE | 2021-09-09 17:53 | NUR ---
Nursing Progress Note: Jerardo Legal hold: LPS Client on involuntary status for GD Report received from ELLYN Seth with use of SBAR Why they are here: Pt was placed on a 5150 in [facility]. Pt appeared to be disheveled, was hungry, and dehydrated. He is unable to provide a viable plan for food, clothing, or nursing home. Assessment What has happened this shift: Patient received pacing around the unit at change of shift. He approached this journalists and other writers asking for coffee and morning medications first thing this morning. Patient noted following staff around the unit and into rooms, knocking on the door to the medication room, and repeatedly asking for coffee and medication. He is noted to be impatient and obtrusive this morning, yet easily redirected. He joined in the group room for breakfast. Patient was receptive to scheduled medication. Patient denies SI/HI, AH or VH. However, appears to be internally preoccupied throughout the shift. Patient continues to perseverate on fixed delusions of being in the armed services and changing his name for protection. He was noted asking for snacks, coffee, and PRN Nicotine lozenges throughout the shift. Patient noted pacing up and down the hallways quietly talking to himself. He participated for all meal and snack times in the group room with peers. S/I, H/I: Denies A/VH: Denies, however, appears to be internally preoccupied Sleep: Pt slept 8 hours last night per NOC shift. No naps noted on this shift. ADL's: Independent but needs encouragement. Group attendance: No Were Meds taken: Yes Any med S/E: None observed or reported Mental Status Exam Appearance: Older appearing man, disheveled, wearing green unit scrubs with a gastelum pullover sweatshirt. Eye contact: Poor, intermittent eye contact. Looks down when speaking to people. Behavior: Cooperative, withdrawn, paces Speech: Pt. stutters and speaks in fragmented sentences, but is able to make himself understood Mood: Withdrawn, pleasant Affect: Blunted Thought process: Fixed delusions. Thought Content: Being in the armed services and changing his name for protection. Cognition: A&O X 3 (Not to circumstance) Insight: Poor Judgment: Poor Interventions PRN's used: Nicotine lozenges Therapeutic interventions: Provided 1:1 assessment with therapeutic communication, medication administration/education/monitoring, encouragement to attend groups and shower, provided distraction, redirection, attempted reality orientation, provided positive reinforcement, and maintained Q15 minute safety checks. Restraints/seclusion/emergency medication: N/A Justification of Continued Inpatient Treatment: Pt. continues to require a safe and supportive environment and medication adjustments. He will discharge to [facility].
[2021-09-09 19:18] VITALS: BP 127/89
[2021-09-09] MEDS: risperiDONE 0.5mg tablet PO SCH (20:31)
--- NOTE | 2021-09-10 03:57 | NUR ---
Nursing Progress Note: Legal hold: LPS Client on involuntary status for GD Report received from GAIL Henriquez with use of SBAR Why they are here: Pt was placed on a 5150 in [facility]. Pt appeared to be disheveled, was hungry, and dehydrated. He is unable to provide a viable plan for food, clothing, or prison. What has happened this shift: Patient laying awake in bed at the beginning of shift. Pleasant and cooperative with care; compliant with medication. PRN Nicotine lozenges provided and patch removed. Patient continues to deny MH Sx and reports delusional thought content r/t witness protection. Patient continues to respond to IS. He remained in his room other than to request Nicotine and coffee this shift; observed sleeping and does not appear to be having difficulty. Justification of Continued Inpatient Treatment: Pt. continues to require a safe and supportive environment and medication adjustments. He will discharge to [facility].
[2021-09-10] MEDS: NICOTINE POLACRILEX 2 MG LOZENGE BC PRN ×4 (07:09→17:04)
[2021-09-10] MEDS: nicotine 21mg patch - 24 hr TD SCH (07:48)
[2021-09-10] MEDS: OLANZAPINE 5 MG TABLET PO SCH ×2 (07:48→20:18)
[2021-09-10] MEDS: multivitamins, therapeutics tablet PO SCH (07:49)
[2021-09-10] MEDS: risperiDONE 2mg tablet PO SCH ×2 (07:49→20:18)
[2021-09-10] MEDS: lisinopril 10 MG tablet PO SCH (07:49)
[2021-09-10] MEDS: atorvastatin 20mg tablet PO SCH (07:49)
[2021-09-10] MEDS: propranolol 10mg tablet PO SCH ×2 (07:49→20:18)
[2021-09-10] MEDS: LORazepam 1 MG tablet PO PRN (07:52)
[2021-09-10 08:22] VITALS: BP 139/106
--- NOTE | 2021-09-10 17:22 | NUR ---
Nursing Progress Note: Jerardo Legal hold: LPS Client on involuntary status for GD Report received from ELLYN Seth with use of SBAR Why they are here: Pt was placed on a [facility]. Pt appeared to be disheveled, was hungry, and dehydrated. He is unable to provide a viable plan for food, clothing, or halfway. Assessment What has happened this shift: Patient received sleeping in his room at shift change. He awoke shortly after and was noted pacing around the unit and requesting a PRN Nicotine lozenge. Patient endorsed feelings of anxiety and was given PRN Ativan at 0752. Patient was receptive to scheduled medication. He joined for breakfast in the group room with peers. Patient reported to this repairer typewriter that he was transferred here for medical damage. Patient also reporting the current road advisor being [facility]. He denies SI/HI, AH or VH. However, appears to be internally preoccupied throughout the shift. Patient noted pacing up and down the hallways quietly talking to himself. He continues to present with fixed delusions of being in Witness Protection. Patient noted perseverating on discharge, endorsing to this repairer typewriter that he is ready to leave. He was noted asking for snacks, coffee, and PRN Nicotine lozenges throughout the shift. He participated for all meal and snack times in the group room with peers. S/I, H/I: Denies A/VH: Denies, however, appears to be internally preoccupied Sleep: Pt slept 8 hours last night per NOC shift. No naps noted on this shift. ADL's: Independent but needs encouragement. Group attendance: No group provided Were Meds taken: Yes Any med S/E: None observed or reported Mental Status Exam Appearance: Older appearing man, disheveled, wearing green unit scrubs with a gastelum pullover sweatshirt. Eye contact: Poor, intermittent eye contact. Looks down when speaking to people. Behavior: Cooperative, withdrawn, paces Speech: Pt. stutters and speaks in fragmented sentences, but is able to make himself understood Mood: Withdrawn, pleasant Affect: Blunted Thought process: Fixed delusions. Thought Content: Believes he was transferred here for medical damage. Cognition: A&O X 3 (Not to circumstance) Insight: Poor Judgment: Poor Interventions PRN's used: Ativan 1mg, Nicotine lozenges Therapeutic interventions: Provided 1:1 assessment with therapeutic communication, medication administration/education/monitoring, encouragement to participate in ADLs and personal hygiene care, provided distraction, redirection, attempted reality orientation, provided positive reinforcement, and maintained Q15 minute safety checks. Restraints/seclusion/emergency medication: N/A Justification of Continued Inpatient Treatment: Pt. continues to require a safe and supportive environment and medication adjustments. He will discharge to [facility].
[2021-09-10 19:11] VITALS: BP 100/69
[2021-09-10] MEDS: risperiDONE 0.5mg tablet PO SCH (20:18)
--- NOTE | 2021-09-11 03:31 | NUR ---
Nursing Progress Note: Legal hold: LPS Client on involuntary status for GD Report received from Juan RN with use of SBAR Why they are here: Pt was placed on a 5150 in [facility]. Pt appeared to be disheveled, was hungry, and dehydrated. He is unable to provide a viable plan for food, clothing, or jail. What has happened this shift: Patient laying in bed awake and responding to IS at the beginning of shift. Pleasant and cooperative with care; compliant with medication. Nicotine patch removed. He continues to deny MH Sx but responding to IS often. Patient participated in HS snack and returned to bed; observed sleeping and does not appear to be having difficulty. Justification of Continued Inpatient Treatment: Pt. continues to require a safe and supportive environment and medication adjustments. He will discharge to [facility].
[2021-09-11] MEDS: OLANZAPINE 5 MG TABLET PO SCH ×2 (07:44→20:21)
[2021-09-11] MEDS: propranolol 10mg tablet PO SCH ×2 (07:45→20:20)
[2021-09-11] MEDS: atorvastatin 20mg tablet PO SCH (07:45)
[2021-09-11] MEDS: multivitamins, therapeutics tablet PO SCH (07:45)
[2021-09-11] MEDS: risperiDONE 2mg tablet PO SCH ×2 (07:45→20:20)
[2021-09-11] MEDS: lisinopril 10 MG tablet PO SCH (07:46)
[2021-09-11] MEDS: nicotine 21mg patch - 24 hr TD SCH (07:47)
[2021-09-11] MEDS: NICOTINE POLACRILEX 2 MG LOZENGE BC PRN ×5 (07:47→19:11)
[2021-09-11 08:00] VITALS: BP 124/83
--- NOTE | 2021-09-11 17:48 | NUR ---
Nursing Progress Note: Jerardo Legal hold: LPS Client on involuntary status for GD Report received from ELLYN Dave with use of SBAR Why they are here: Pt was placed on a 5150 in [facility]. Pt appeared to be disheveled, was hungry, and dehydrated. He is unable to provide a viable plan for food, clothing, or nursing home. Assessment What has happened this shift: Patient received pacing around the unit at change of shift. He was noted following staff around the unit and into rooms, knocking on the door to the medication room, and repeatedly asking for coffee and medication. He is noted to be impatient and obtrusive this morning, yet easily redirected. Patient reported to this commercial real estate underwriter that he has never been in the mental health system before. He assured this commercial real estate underwriter that he is not suffering from psychological damage and is well enough to secure a full-time job. Patient was receptive to scheduled medication. He participated in the group room for breakfast this morning. He denies SI/HI, AH or VH. However, appears to be internally preoccupied throughout the shift. Patient noted pacing up and down the hallways making nonsensical delusions of databases being parallel to medication and inputting stressors from Zyprexa into the computer. He was noted asking for snacks, coffee, and PRN Nicotine lozenges throughout the shift. Patient endorsed fixed delusions of being in the [place] [employer]. He participated for all meal and snack times in the group room with peers. S/I, H/I: Denies A/VH: Denies, however, appears to be internally preoccupied Sleep: Pt slept 9.5 hours last night per NOC shift. No naps noted on this shift. ADL's: Independent but needs encouragement. Group attendance: No group provided Were Meds taken: Yes Any med S/E: None observed or reported Mental Status Exam Appearance: Older appearing man, disheveled, wearing green unit scrubs with a gastelum pullover sweatshirt. Eye contact: Poor, intermittent eye contact. Looks down when speaking to people. Behavior: Cooperative, withdrawn, paces Speech: Pt. stutters and speaks in fragmented sentences, but is able to make himself understood Mood: Withdrawn, pleasant Affect: Blunted Thought process: Fixed delusions. Thought Content: Believes that he is in the [place] [employer]. Cognition: A&O X 3 (Not to circumstance) Insight: Poor Judgment: Poor Interventions PRN's used: Nicotine lozenges Therapeutic interventions: Provided 1:1 assessment with therapeutic communication, medication administration/education/monitoring, encouragement to participate in ADLs and personal hygiene care, provided distraction, redirection, attempted reality orientation, provided positive reinforcement, and maintained Q15 minute safety checks. Restraints/seclusion/emergency medication: N/A Justification of Continued Inpatient Treatment: Pt. continues to require a safe and supportive environment and medication adjustments. He will discharge to [facility].
[2021-09-11 19:46] VITALS: BP 131/83
[2021-09-11] MEDS: risperiDONE 0.5mg tablet PO SCH (20:20)
--- NOTE | 2021-09-12 02:52 | NUR ---
Nursing Progress Note: Legal hold: LPS Client on involuntary status for GD Report received from GAIL Ricardo with use of SBAR Why they are here: Pt was placed on a 5150 in [facility]. Pt appeared to be disheveled, was hungry, and dehydrated. He is unable to provide a viable plan for food, clothing, or detention. What has happened this shift: Patient laying in bed awake at the beginning of shift. Pleasant and cooperative with care; compliant with medication. PRN Nicotine lozenges provided and patch removed. Patient attempted to argue with entry writer about removing his Nicotine patch but ended up cooperating. Patient continues to express he is here for witness protection and reported having a "rough morning" d/t "bad people being loud outside the windows." Patient participated in HS snack prior to bed; observed sleeping and does not appear to be having difficulty. Justification of Continued Inpatient Treatment: Pt. continues to require a safe and supportive environment and medication adjustments. He will discharge to [facility].
[2021-09-12] MEDS: NICOTINE POLACRILEX 2 MG LOZENGE BC PRN ×6 (06:43→21:54)
[2021-09-12] MEDS: propranolol 10mg tablet PO SCH ×2 (07:35→20:00)
[2021-09-12] MEDS: atorvastatin 20mg tablet PO SCH (07:35)
[2021-09-12] MEDS: multivitamins, therapeutics tablet PO SCH (07:35)
[2021-09-12] MEDS: nicotine 21mg patch - 24 hr TD SCH (07:35)
[2021-09-12] MEDS: risperiDONE 2mg tablet PO SCH ×2 (07:35→20:12)
[2021-09-12] MEDS: lisinopril 10 MG tablet PO SCH (07:36)
[2021-09-12] MEDS: OLANZAPINE 5 MG TABLET PO SCH ×2 (07:36→20:13)
[2021-09-12] MEDS: LORazepam 1 MG tablet PO PRN (07:36)
[2021-09-12 08:00] VITALS: BP 131/99
--- NOTE | 2021-09-12 14:01 | NUR ---
PLACEMENT Jerardo has been accepted at [facility]. Sent 7 days of notes, PPD and Covid results to [facility] for admittance. He likely will discharge in the next day or two. AGUILAR Cloud
--- NOTE | 2021-09-12 17:55 | NUR ---
Nursing Progress Note: Legal hold: LPS Client on involuntary status for GD Report received from ELLYN Salinas with use of SBAR Why they are here: Pt was placed on a 5150 in [facility]. Pt appeared to be disheveled, was hungry, and dehydrated. He is unable to provide a viable plan for food, clothing, or penitentiary. Assessment What has happened this shift: Received patient while he was ambulating up and down the hager. Patient was extremely intrusive since 0630 this morning. His actions were asking for coffee repeatedly throughout the day and after already receiving coffee at snack time. Patient ambulating in hager and when this RN would leave the Observation Room to walk down the hager, the patient would be ambulating the opposite direction in the hallway, and make a quick turn right behind me and attempt to ask me for either a Nicotine Lozenge, or coffee. This has continued throughout the day. Patient was given an Ativan with his 0800 medications, which had no effect on the patients obsessive compulsive actions throughout the day. When patient asked for a Nicotine Lozenge, he would come to me at least 30 minutes ahead of his scheduled time. The patient was then informed on the exact time that he would get the next Nicotine Lozenge, but would stand at the Observation Room door asking for the Nicotine Lozenge every 3-5 minutes. When I told the patient the time, and he said he knew how to tell time by looking at the clock nearby, he would still continue his obsessive compulsive pattern. Patient ate his meals in the Community Room, then paced the floor back and forth for the rest of the day. Asked patient to attend Group Meeting at 1115, and he stated No Im not. Received a new patient on the unit at approximately 1330. One of the duct installer was in the Observation Room attempting to do an inventory check on his belongings, and patient kept walking directly in the room, and picking up some of the items and informing us it was his jacket, or his money, or his cards. Patient was asked to not come in the room, and not to attempt to touch another persons belongings. Despite this, the patient insisted that the camo coat that belonged to the new patient, was his army jacket. Patient has continued to focus on unnecessary issues that have nothing to do with him, and remained intrusive all day despite attempts to limit setting. Plan is patient is to discharge to [facility] either tomorrow or Sunday. Patient has been informed he will be transported to the facility in [place], and prior to him leaving we will inventory his belongings prior to his departure, and I will keep him informed about the process and time of departure. S/I, H/I: Denies A/VH: Denies Sleep: 7.75 hours ADL's: Independent Group attendance: Informed regarding attending Group Meeting but refused to attend. Were Meds taken: Yes, without hesitation. Any med S/E: None observed or reported Mental Status Exam Appearance: Older appearing man, disheveled with a dirty gastelum pullover sweatshirt. Eye contact: Poor, intermittent eye contact. Looks down when speaking to people. Behavior: Cooperative, Intrusive all of the time. Speech: Pt. stutters and speaks in fragmented sentences. Mood: Im doing well today. Affect: Intrusive. Rude at times to peers and staff. Thought process: Fixed delusions. Thought Content: Believes that he is in the [employer]. Cognition: A&O X 3 Insight: Poor Judgment: Poor Interventions PRN's used: Nicotine lozenges, Ativan Therapeutic interventions: Provided 1:1 assessment with therapeutic communication, medication administration/education/monitoring, encouragement to participate in ADLs and personal hygiene care, provided distraction, redirection, attempted reality orientation, provided positive reinforcement, and maintained Q15 minute safety checks. Restraints/seclusion/emergency medication: N/A Justification of Continued Inpatient Treatment: Pt. continues to require a safe and supportive environment and medication adjustments. He will discharge to [facility].
[2021-09-12 19:51] VITALS: BP 98/60
[2021-09-12] MEDS: risperiDONE 0.5mg tablet PO SCH (20:12)
--- NOTE | 2021-09-13 04:17 | NUR ---
Nursing Progress Note: Legal hold: LPS Client on involuntary status for GD Report received from GAIL Watkins with use of SBAR Why they are here: Pt was placed on a 5150 in [facility]. Pt appeared to be disheveled, was hungry, and dehydrated. He is unable to provide a viable plan for food, clothing, or [place] [facility]. What has happened this shift: Patient laying awake in bed at the beginning of shift. Pleasant and cooperative with care; compliant with medication. PRN Nicotine lozenges provided and patch removed. Patient continues to express delusions r/t witness protection and "no mental health problems." Patient got up for HS snack and shortly returned to bed; observed sleeping and does not appear to be having difficulty. Justification of Continued Inpatient Treatment: Pt. continues to require a safe and supportive environment and medication adjustments. He will discharge to [facility].
[2021-09-13] MEDS: NICOTINE POLACRILEX 2 MG LOZENGE BC PRN ×2 (06:27→10:27)
--- NOTE | 2021-09-13 06:46 | NUR ---
HOSPITAL FELLOW AT 11 AM Jerardo has been accepted to [facility] and will be picked up at 11 AM this morning to transition to [facility]. AGUILAR Cloud
[2021-09-13] MEDS: nicotine 21mg patch - 24 hr TD SCH (08:22)
[2021-09-13] MEDS: propranolol 10mg tablet PO SCH (08:23)
[2021-09-13] MEDS: LORazepam 1 MG tablet PO PRN (08:23)
[2021-09-13] MEDS: risperiDONE 2mg tablet PO SCH (08:24)
[2021-09-13] MEDS: atorvastatin 20mg tablet PO SCH (08:24)
[2021-09-13] MEDS: lisinopril 10 MG tablet PO SCH (08:24)
[2021-09-13] MEDS: multivitamins, therapeutics tablet PO SCH (08:24)
[2021-09-13] MEDS: OLANZAPINE 5 MG TABLET PO SCH (08:24)
[2021-09-13 08:45] VITALS: BP 169/107
[2021-09-13] MEDS ORDERED: PROP10TA10 PO (10:33)
[2021-09-13] MEDS ORDERED: NICO-687 TD (10:33)
[2021-09-13] MEDS ORDERED: NICO-907 BC (10:33)
[2021-09-13] MEDS ORDERED: LISI10TA27 PO (10:33)
[2021-09-13] MEDS ORDERED: RISP2TAB85 PO ×2 (10:33)
[2021-09-13] MEDS ORDERED: ATOR20TA66 PO (10:33)
[2021-09-13] MEDS ORDERED: RISP0.5T65 PO (10:33)
[2021-09-13] MEDS ORDERED: OLAN5TAB75 PO ×2 (10:33)
--- NOTE | 2021-09-13 18:47 | NUR ---
Discharge Note: Received discharge orders from FINA Yepez. Patients transport to [facility] in [place] to arrive at 1100 this morning. PCT went through patients belongings and patient continued to interfere with them reviewing the belongings and comparing it to the belongings list on admit. Patient given Ativan secondary to his continued request of a Nicotine Lozenge at 0620 and following this Nurse while ambulating down the hager and turning quickly behind my shoes and walking into my shoes almost causing a near fall, as he kept asking all for a second cup of coffee. Patients Belongings were left in the Office by PCT staff, and patient was observed x1 leaning over the office door and attempting to take items out of his bag prior to discharge. Patient was counseled on this multiple times. Transportation arrived to the front lobby of [facility]. Copy of Conservatorship given to the delivery route driver as he required it to transport the patient. Patient also had brought in a knife when he was admitted, and the paperwork was given to Security to retrieve the knife upon discharge time. Arrived in the lobby with the patient and Security assisting with the transfer. Patients belongings were being overseen by Security while paperwork was being signed out on paperwork. Patient was then escorted out of the building to the front of the hospital where the transport vehicle was waiting. Patient was then assisted to the back seat of the vehicle and his belongings were placed in the front of the car with the delivery route driver. Discharge time was 11:30 am. Received a telephone call at approximately 1320, and it was the delivery route driver that was transporting this patient to [facility]. The delivery route driver informed that the patient was riding along in the vehicle and lit up a cigarette in the back seat while he was driving the care. The delivery route driver said he pulled over and informed the patient that he wanted his site supervising technical operator and cigarettes, and he would not giving them back to him, instead he would be giving them to the facility.
== END 2021-09-13 11:30 | disposition short-term general hospital (02) | DRG 885 ==
LOC: ADULT MH 16:35
PROVIDERS: ADMIT Psychiatry & Neurology Psychiatry; ATTEND Psychiatry & Neurology Psychiatry
DX: F20.9 Schizophrenia, unspecified (principal); E78.5 Hyperlipidemia, unspecified; E86.0 Dehydration; L64.9 Androgenic alopecia, unspecified; F29 Unspecified psychosis not due to a substance or known physiological condition; F02.80 Dementia in other diseases classified elsewhere, unspecified severity, without behavioral disturbance, psychotic disturbance, mood disturbance, and anxiety; G30.0 Alzheimer's disease with early onset; Z20.822 Contact with and (suspected) exposure to COVID-19; E78.00 Pure hypercholesterolemia, unspecified; F17.210 Nicotine dependence, cigarettes, uncomplicated; G20 Parkinson's disease; I10 Essential (primary) hypertension; Z71.6 Tobacco abuse counseling; Z59.00 Homelessness unspecified
CPT/HCPCS: 36415; 80053; 80061; 83036; 84443; 85025; 87081; J0515; J2060; J3490